=== PATIENT | male | born 1935 | race Caucasian/White ===

== ENCOUNTER → 2018-11-10 10:23 | Outpatient (CLI) | payer MEDICARE, OTHER | END | disposition home or self-care (01) | LOC: D.MRI 10:23 | PROVIDERS: ATTEND Orthopaedic Surgery | DX: M54.16 Radiculopathy, lumbar region (principal) ==

== ENCOUNTER 2019-11-19 10:14 | Inpatient (IN) | payer MEDICARE, OTHER ==
[~2019-11-19] VITALS: Ht 182.9 cm; Wt 79.6 kg
[2019-11-19] VITALS (8 sets, daily range): BP systolic 98–179; BP diastolic 48–95; BMI 21.3
--- NOTE | ~2019-11-19 | EC ---
PATIENT:STEVE RADFORD DATE OF SERVICE: 11/19/19 SEX: M MEDICAL RECORD: [id number] DATE OF : 31 LOCATION:[facility] AGE OF PATIENT: 84 ADMISSION DATE: 11/19/19 REFERRING PHYSICIAN: INTERPRETING PHYSICIAN: COLTON COLBERT MD ECHOCARDIOGRAM REPORT ECHO CHARGES 4 ECHO COMPLETE Date: 11/22/19 CLINICAL DIAGNOSIS: PROLONGED QT/FIRST DEGREE BLOCK ECHOCARDIOGRAPHIC MEASUREMENTS (adult normal given) AC root (d.<3.7cm) 4.5 cm LV Septum d (<1.2 cm> 1.3 cm Valve Excursion 1.2 cm LV Septum (systole) 1.6 cm Left Atria (s.<4.0cm> 4.2 cm LVPW d(<1.2cm) 1.2 cm RV (d.<2.3cm) 2.3 cm LVPW (sytole) 1.7 cm LV diastole(<5.6CM) 5.6 cm MV E-F(>70mm/sec) cm LV systole 4.3 cm LVOT Diameter 2.0 cm MV exc.(>10mm) cm Est.ejection fraction (50-75%) % DOPPLER: LVIT cm/sec A 39.0 cm/sec E 74.0 cm/sec LA cm/sec RVSP 36.0 mmHg LVOT 87.0 cm/sec AOP1/2T m/s Asc. Ao 126 cm/sec RVOT 66.0 cm/sec RA cm/sec PA 97.0 cm/sec AV Gradient Peak 6.3 mmHg AV Mean 4.0 mmHg AV Area 2.4 cm MV Gradient Peak 2.2 mmHg MV Mean 0.43 mmHg MV Area cm COMMENTS: Food Beverage Manager: Juarez VILLAGRANDSOE Reefer Engineer: 4 Dr. Colbert TAPE# PACS Pericardial Effusion N DATE OF SERVICE: PROCEDURE: Transthoracic echocardiogram. FINDINGS: Left ventricle has moderate concentric left ventricular hypertrophy, ejection fraction of 40% to 50%, mild global hypokinesis. Left atrium is mildly enlarged at 4.2 cm. ECHOCARDIOGRAM REPORT [id number] STEVE RADFORD Aortic valve overall is normal. Mitral valve has trace mitral regurgitation. Tricuspid valve has trace tricuspid regurgitation. Right ventricular systolic pressures between 30-35 mmHg. Pericardium is normal. Right ventricle is normal size, shape, and function. Right atrium is moderately enlarged. Pulmonic valve, trace pulmonic insufficiency. TRANSINT:[id number] Voice Confirmation ID: [id number] DOCUMENT ID: [id number] COLTON COLBERT MD CC: [id number] DICTATION DATE: 11/22/191841 SAP BUSINESS OBJECTS DEVELOPER: 11/23/19 0204 ADM IN [facility] [address] [place] [address]
[~2019-11-19 10:14] MED LIST: ADVIL200 MG PO; BAYER CHEWABLE81 MG PO; BUMEX2 MG PO; FERRIC CITRATE210 MG PO; FISH OIL 1,0001 CA1 PO; FOLIC ACID0.8 MG PO; LIDODERM 5 %1 PATCH TRANSDERM; MIDODRINE HCL5 MG PO; MIRALAX17 GM PO; NITROSTAT0.4 MG SL; PLAVIX75 MG PO; PROPAFENONE HC225 MG PO; PROSCAR5 MG PO; RENA-VITE TABL0.8 MG PO; RESTORIL7.5 MG PO; ULTRAM50 MG PO; VYTORIN PO; ZANAFLEX4 MG PO
[2019-11-19] MEDS ORDERED: FERRIC CITRATE210 MG PO (10:35)
--- NOTE | 2019-11-19 11:25 | NUR ---
CALLED PTS LISTED PHONE # ([phone]) IN ATTEMPT TO SPEAK WITH FAMILY RE: PTS NML MENTATION. NA/LM
[2019-11-19 11:39] LABS: BASOPHILS 0.4 % (0-2); EOSINOPHILS 2.8 % (0-7); HEMATOCRIT 39.9 % (42.0-54.0); HEMOGLOBIN 12.8 g/dL (13.5-17.5); IMMATURE GRANULOCYTES 0.6 % (0-5); MCH 32.2 pg (26.0-34.0); MCHC 32.1 g/dL (31.0-37.0); MCV 100.5 fL (80.0-100.0); MEAN PLATELET VOLUME 10.2 fL (7.4-10.4); MONOCYTES 8.9 % (2-11); NEUTROPHILS 60.3 % (40-80); PLATELET COUNT 175 10x3/uL (130-400); RBC 3.97 10x6/uL (4.20-6.10); RDW 13.7 % (11.5-14.5); WBC 5.4 10x3/uL (4.8-10.8)
[2019-11-19 11:40] LABS: BACTERIA FEW /hpf (NEGATIVE); BILIRUBIN NEGATIVE (NEGATIVE); EPITHELIAL CELLS 0-5 /hpf (0-5); GLUCOSE 50 mg/dL (NEGATIVE); KETONE NEGATIVE (NEGATIVE); NITRITE NEGATIVE (NEGATIVE); SPECIFIC GRAVITY 1.005 (1.005-1.020); UROBILINOGEN NORMAL (NORMAL); WHITE CELLS - URINE RARE /hpf (NEGATIVE)
[2019-11-19 11:41] LABS: CALC OSMOLALITY 287 mosm/kg (275-300); CALCIUM 9.5 mg/dL (8.5-10.1); CARBON DIOXIDE 31.6 mmol/L (21.0-32.0); CHLORIDE - SERUM 102 mmol/L (98-107); CREATININE - SERUM 6.6 mg/dL (0.6-1.3); GLUCOSE 100 mg/dL (74-106); SODIUM 141 mmol/L (136-145); UREA NITROGEN 33 mg/dL (7-18); eGFR NON AFRICAN AMERICAN 8 mL/min (90-120)
--- NOTE | 2019-11-19 11:51 | NUR ---
CALLED DR CHEW, INQUIRED ABOUT PTS HX/MS. DR CHEW REPORTS HE SAW PT IN OFFICE YESTERDAY AND PT WAS NOT CONFUSED REPORTS PT CONVERSED NORMALLY. TXD PT FOR BACK PAIN: NEW RXS NORCO 7.5 AND BACLOFEN. ROBERTH GONGORA NOTIFIED
[2019-11-19 11:57] LABS: ALBUMIN 3.2 g/dL (3.4-5.0); ALKALINE PHOSPHATASE 114 U/L (30-120); ALT (SGPT) 21 U/L (10-68); BILIRUBIN - TOTAL 0.46 mg/dL (0.2-1.3); CKMB 1.5 U/L (0.0-3.6); CREATINE KINASE 63 UL (21-232); MAGNESIUM - SERUM 2.5 mg/dL (1.8-2.4); PROTEIN - SERUM 7.1 g/dL (6.4-8.2); THYROID STIMULATING HORMONE 2.14 uIU/mL (0.36-3.74); TROPONIN-I 0.022 ng/mL (0.000-0.060)
[2019-11-19 12:32] LABS: APTT 28.8 SECONDS (22.8-39.4); PROTIME 13.1 SECONDS (11.6-15.0)
--- NOTE | 2019-11-19 15:17 | NUR ---
REPORT TO NEEL ODOM
--- NOTE | 2019-11-19 15:18 | NUR ---
ADMIT TO ROOM #2104, CONDITION STABLE
--- NOTE | 2019-11-19 15:44 | NUR ---
RECEIVED PT FROM ER VIA STRETCHER ACCOMPANIED BY . PT IS CONFUSED AND ONLY ORIENTED TO PERSON. FALL PRECAUTIONSN IN PLACE. CALL LIGHT W/I REACH. AT BEDSIDE. RR EVEN AND UNLABORED ON RA. VSS AND WNL. NO S/S OF DISTRESS NOTED. LEFT SIDED WEAKNESS NOTED. PT DENIES ANY NEEDS. QUICKSTART, HISTORY, AND MED REQ COMPLETE. WILL CTM.
--- NOTE | 2019-11-19 19:33 | NUR ---
TRANSFER TO ICU SEE RAPID RESPONSE SHEETS.
[2019-11-20] VITALS (21 sets, daily range): BP systolic 74–185; BP diastolic 47–800; BMI 21.3
[2019-11-20 06:08] LABS: BASOPHILS 0.1 % (0-2); EOSINOPHILS 0.1 % (0-7); HEMATOCRIT 41.8 % (42.0-54.0); HEMOGLOBIN 13.3 g/dL (13.5-17.5); IMMATURE GRANULOCYTES 0.4 % (0-5); LYMPHOCYTES 12.8 % (15-50); MCH 31.8 pg (26.0-34.0); MCHC 31.8 g/dL (31.0-37.0); MEAN PLATELET VOLUME 10.2 fL (7.4-10.4); MONOCYTES 8.5 % (2-11); NEUTROPHILS 78.1 % (40-80); RBC 4.18 10x6/uL (4.20-6.10); RDW 13.9 % (11.5-14.5)
[2019-11-20 06:21] LABS: ANION GAP 22.2 mmol/L (8-16); CALCIUM 10.2 mg/dL (8.5-10.1); MAGNESIUM - SERUM 2.5 mg/dL (1.8-2.4); PHOSPHOROUS 4.4 mg/dL (2.5-4.9)
[2019-11-20 06:23] LABS: CARBON DIOXIDE 22.8 mmol/L (21.0-32.0)
[2019-11-20 06:25] LABS: PLATELET COUNT 265 10x3/uL (130-400); WBC 13.5 10x3/uL (4.8-10.8)
--- NOTE | 2019-11-20 08:15 | NUR ---
IV STARTED IN R HAND WITH 20G ON 1ST ATTEMPT. SITE DRESSED WITH TEGADERM.
--- NOTE | 2019-11-20 23:43 | NUR ---
1899-ASSESSMENT COMPLETED. PATIENT SEDATED. WAKES TO VOICE. CONFUSION NOTED. SOON PT OPENS EYES, HE STARTED TRYING TO GET UP. LEFT ARM RESERVE, DRESSING INTACT FROM HD TODAY. RIGHT HAND PIV. BREATHING ON ROOM AIR. 2002-PRN ATIVAN GIVEN. PATIENT JERKING IN BED. BED ALARM ON. 2023- CALLED, PASSCODE GIVEN, UPDATE GIVEN. REQUEST PT BE CHECKED FOR TICK FEVER. 2329-PATIENT STARTED THRASHING IN BED, YELLING "MAMA." ATTEMPTED TO REORIENT BUT UNSUCCESSFUL.
[2019-11-21] VITALS (24 sets, daily range): BP systolic 88–149; BP diastolic 48–97
[2019-11-21 03:39] LABS: BASOPHILS 0.2 % (0-2); EOSINOPHILS 0.2 % (0-7); HEMATOCRIT 40.9 % (42.0-54.0); IMMATURE GRANULOCYTES 0.3 % (0-5); LYMPHOCYTES 19.3 % (15-50); MCH 31.7 pg (26.0-34.0); MCHC 31.8 g/dL (31.0-37.0); MCV 99.8 fL (80.0-100.0); MEAN PLATELET VOLUME 10.4 fL (7.4-10.4); MONOCYTES 14.2 % (2-11); NEUTROPHILS 65.8 % (40-80); RDW 14.1 % (11.5-14.5); WBC 12.2 10x3/uL (4.8-10.8)
[2019-11-21 03:45] LABS: PLATELET COUNT 203 10x3/uL (130-400)
[2019-11-21 03:51] LABS: ANION GAP 17.2 mmol/L (8-16); CALCIUM 9.4 mg/dL (8.5-10.1); CARBON DIOXIDE 23.8 mmol/L (21.0-32.0)
--- NOTE | 2019-11-21 05:20 | NUR ---
0005-YELLING "MAMA." CONT WITH THRASHING IN BED. PAGED MARGARITA MEDINA. 0139-CONT THRASHING IN BED. GIVEN SCHEDULED HALDOL. LAST DOSE 0230- MARGARITA MEDINA IN UNIT. SPOKE WITH HER, NO NEW ORDERS. 0328- HEARTRATE ELEVATED. PT THRASHING IN BED. YELLING. PAGED RENAL POCKETBOOK MAKER, DR. CAST. 0340- GIVEN PRN ATIVAN. HEARTRATE BACK TO 90'S. NO RETURN CALL FROM DR. CAST. 0500- PATIENT HAD APPROX 1 HOUR OF REST, WITH NO YELLING.
--- NOTE | 2019-11-21 06:40 | NUR ---
0600-COMPLETE BED CHANGE, LINEN SOILED. 0620-SPOKE WITH DR. AUSTIN, NEW ORDER FOR ATIVAN 1MG X 1 NOW. PATIENT CONT TO YELL AND THRASH AGAINST THE BED.
--- NOTE | 2019-11-21 07:00 | NUR ---
BEDSIDE REPORT RECEIVED. SHIFT ASSESSMENT COMPLETED PER FLOWSHEET, SEE FLOWSHEET FOR INFORMATION. PT RESTING IN BED WITH EYES CLOSED. VSS. NO ACUTE NEEDS OR DISTRESS NOTED AT THIS TIME. WILL CONT TO MONITOR.
--- NOTE | 2019-11-21 07:05 | NUR ---
INTERPETED EKG SINUS TACH WITH 1ST DEGREE HEART BLOCK. WILL CONT TO MONITOR.
--- NOTE | 2019-11-21 09:00 | NUR ---
PT AGITATED IN BED SAYING "MOMMA, MOMMA COME HOLD ME". VSS WILL CONT TO MONITOR.
--- NOTE | 2019-11-21 11:00 | NUR ---
REASSESSMENT COMPLETED PER FLOWSHEET, SEE FLOWSHEET FOR INFORMATION. DIALYSIS AT BEDSIDE ALONG WITH PT DAUGHTER. UPDATE GIVEN. VSS. NO ACUTE NEEDS OR DISTRESS NOTED AT THIS TIME. PT TOLERATING HALDOL WELL. WILL CONT TO MONITOR.
--- NOTE | 2019-11-21 12:17 | NUR ---
LEFT FOREARM FISTULA INFILTRATED. MARTIN LEPE CALLED. NEW ORDER RECEIVED, NO HD TOMORROW TO ALLOW ARM TO REST AND HEAL. WILL CONT TO MONITOR.
--- NOTE | 2019-11-21 13:00 | NUR ---
PT RIPPED IV OUT OF RIGHT HAND. NEW PATENT 20G IV IN RIGHT UPPER ARM, NS INFUSING AT 30ML/HR. NO ACUTE NEEDS OR DISTRESS NOTED AT THIS TIME. VSS. WILL CONT TO MONITOR.
--- NOTE | 2019-11-21 15:00 | NUR ---
REASSESSMENT COMPLETED PER FLOWSHEET, SEE FLOWSHEET FOR INFORMATION. AT BEDSIDE, NEW ORDERS RECEIVED. CHG BEDBATH GIVEN, COMPLETE LINEN CHANGE. PAGED FOR CARDIOLOGY CONSULT. WILL CONT TO MONITOR.
--- NOTE | 2019-11-21 16:39 | NUR ---
SUNNY LEPE PAGED. WILL CONT TO MONITOR.
--- NOTE | 2019-11-21 17:00 | NUR ---
HALDOL GIVEN PER ORDERS. PT RESTING IN BED WITH EYES CLOSED. WILL CONT TO MONITOR.
--- NOTE | 2019-11-21 18:00 | NUR ---
DR.NORRED FERREIRA. WILL CONT TO MONITOR. EKG TAKEN.
--- NOTE | 2019-11-21 18:16 | NUR ---
PAGED AND GAVE THEM 'S NUMBER TO CALL BACK SINCE REQUESTED TO SPEAK WITH STATING "CONSULTS ARE PHYSICIAN TO PHYSICIAN, YOU'RE NOT A PHYSICIAN ARE YOU?" WILL CONT TO MONITOR.
--- NOTE | 2019-11-21 19:15 | NUR ---
INTERPRETED EKG SINUS TACH WITH 1ST DEGREE HEART BLOCK. WILL CONT TO MONITOR.
--- NOTE | 2019-11-21 19:30 | NUR ---
CM NOT SHOWING RHYTHM INTO CHECK PT HAS TORN WIRES FROM LEADS REPLACED AND REPOSITIONED PT. PT KNOWS HES IN HOSPITAL BUT CONFUSED ABOUT SITUATION AND TIME. REORIENTED TO UNIT. LEADS LINES AND TUBES CAMOFLAUGED. RESTRAINTS ON, SIDE RAILS UP TIMES 3 AND BED ALARM ON PT ATTEMPTS TO GET OOB.
--- NOTE | 2019-11-21 23:00 | NUR ---
REASSESSMENT COMPLETE NO CHANGES CPOC
[2019-11-22] VITALS (24 sets, daily range): BP systolic 79–147; BP diastolic 58–92; Ht 182.9 cm; Wt 79.6 kg
--- NOTE | 2019-11-22 02:28 | NUR ---
PT AGITATED CURSING AND MAD WANTING TO LEAVE HOSPITAL CM READING AFIB RVR 150'S MEDICATED WITH ATIVAN PER PRN ORDER
--- NOTE | 2019-11-22 02:59 | NUR ---
PAGED FILEMON PT IN AFIB RVR 150'S NO ANSWER
--- NOTE | 2019-11-22 03:14 | NUR ---
HANNA COLBERT SECOND TIME FOR AFIB RVR NO REPLY. PTS RATE HAS DECREASED DOWN TO 120'S WITH ATIVAN PRN DOSE.
--- NOTE | 2019-11-22 04:00 | NUR ---
PT RESTING QUIETLY WITH EYES CLOSED HEART RATE DOWN TO 120'S. CPOC
[2019-11-22 06:29] LABS: BASOPHILS 0.2 % (0-2); EOSINOPHILS 0.2 % (0-7); HEMATOCRIT 39.1 % (42.0-54.0); HEMOGLOBIN 12.6 g/dL (13.5-17.5); IMMATURE GRANULOCYTES 0.7 % (0-5); MCH 31.9 pg (26.0-34.0); MCHC 32.2 g/dL (31.0-37.0); MEAN PLATELET VOLUME 10.6 fL (7.4-10.4); MONOCYTES 14.3 % (2-11); NEUTROPHILS 71.6 % (40-80); PLATELET COUNT 197 10x3/uL (130-400); RBC 3.95 10x6/uL (4.20-6.10); RDW 14.4 % (11.5-14.5); WBC 9.8 10x3/uL (4.8-10.8)
[2019-11-22 06:48] LABS: ANION GAP 23.5 mmol/L (8-16); CALCIUM 9.7 mg/dL (8.5-10.1); CARBON DIOXIDE 19.3 mmol/L (21.0-32.0); CREATININE - SERUM 6.6 mg/dL (0.6-1.3); POTASSIUM - SERUM 4.8 mmol/L (3.5-5.1)
--- NOTE | 2019-11-22 07:00 | NUR ---
BEDSIDE REPORT RECEIVED. SHIFT ASSESSMENT COMPLETED PER FLOWSHEET, SEE FLOWSHEET FOR INFORMATION. PT IN BED CURSING AND YELLING AT STAFF, WHILE FLAILING LEGS IN THE AIR. HEART RATE 122, ALL OTHER VS WNL. MEDICATION GIVEN PER EMAR. NO ACUTE NEEDS NOTED AT THIS TIME. WILL CONT TO MONITOR.
--- NOTE | 2019-11-22 09:00 | NUR ---
PT HEART RATE VERY LABILE, HEART RATE WILL DROP DOWN TO 53 AND RISE BACK UP TO [address]NORRED FERREIRA.
--- NOTE | 2019-11-22 09:23 | NUR ---
PT IN MULTIFOCAL ATRIAL TACHYCARDIA. AWATING CALL FROM . WILL CONT TO MONITOR.
--- NOTE | 2019-11-22 09:32 | NUR ---
ON THE PHONE WITH NATALIYA, SHE STATES SHE WANTS HIM A FULL CODE AND THAT WAS HEARD BY CONNOR ODOM. WILL CONT TO MONITOR.
--- NOTE | 2019-11-22 09:44 | NUR ---
PT MEGAN DOWN TO 63, GOT A EKG STRIP AT HR OF 70. WILL CONT TO MONITOR.
--- NOTE | 2019-11-22 09:46 | NUR ---
PT MEGAN DOWN TO 59. EKG STRIP TAKEN OF 65, WILL CONT TO MONITOR.
--- NOTE | 2019-11-22 09:46 | NUR ---
DR.ERWIN FERREIRA. WILL CONT TO MONITOR.
--- NOTE | 2019-11-22 10:11 | NUR ---
AT BEDSIDE. NO NEW ORDERS RECEIVED. WILL CONT TO MONITOR.
--- NOTE | 2019-11-22 11:00 | NUR ---
CHG BEDBATH GIVEN WITH COMPLETE LINEN CHANGE. RESTRAINTS TAKEN OFF OF PT, PT VERBALIZED KNOWLEDGE OF HIS IV'S AND ALL ATTACHMENTS FOR VS, HE STATES "I WILL NOT PULL THEM, I KNOW YOU NEED IT TO SEE HOW MY HEART IS DOING." REASSESSMENT COMPLETED PER FLOWSHEET, SEE FLOWSHEET FOR INFORMATION. VSS. NO ACUTE NEEDS OR DISTRESS NOTED AT THIS TIME. WILL CONT TO MONITOR.
--- NOTE | 2019-11-22 13:00 | NUR ---
HEART RATE 140-150 SUBSTAINING FOR 10 MINUTES. PAGED . AWAITING A RESPONSE FROM . WILL CONT TO MONITOR.
--- NOTE | 2019-11-22 13:24 | NUR ---
AT BEDSIDE, UPDATED HIM ON HEART RATE AND THAT IT HAS SUSTAINED OVER 15 MINUTES. "JUST KEEP CALLING NORRED" NO NEW ORDERS.
--- NOTE | 2019-11-22 13:37 | NUR ---
CALLED , NEW ORDER RECEIVED. 500ML NS BOLUS AT 200ML/HR STARTED. WILL CONT TO MONITOR.
--- NOTE | 2019-11-22 13:49 | NUR ---
PT TOLERATING NS BLOUS WELL, HEART RATE IS 105 AND BLOOD PRESSURE IS 98/61. WILL CONT TO MONITOR.
--- NOTE | 2019-11-22 15:00 | NUR ---
REASSESSMENT COMPLETED PER FLOWSHEET, SEE FLOWSHEET FOR INFORMATION. NO ACUTE NEEDS OR DISTRESS NOTED AT THIS TIME. VSS. WILL CONT TO MONITOR.
--- NOTE | 2019-11-22 17:00 | NUR ---
PT RESTING IN BED WITH EYES CLOSED, NO ACUTE NEEDS OR DISTRESS NOTED AT THIS TIME. VSS, WILL CONT TO MONITOR.
--- NOTE | 2019-11-22 19:10 | NUR ---
NS @ 75 FOR 6 HOURS STARTED.
--- NOTE | 2019-11-22 19:13 | NUR ---
SPOKE WITH , NEW ORDERS RECEIVED. WILL CONT TO MONITOR.
--- NOTE | 2019-11-22 19:57 | NUR ---
PT RECEIVED IN BED WATCHING TV. CONFUSION NOTED. NO COMPLAINTS OF PAIN NOTED. CALL LIGHT IN REACH. WILL CONTINUE TO OBSERVE.
--- NOTE | 2019-11-22 20:43 | NUR ---
LOPRESSOOR 2.5MG IV GIVEN OVER 30 MINUTES PER ORDER.
--- NOTE | 2019-11-22 21:40 | NUR ---
CALLED PER PT REQUEST TO REQUEST LIFESAVERS OR OTHER CANDY THAT THEY KNOW HE LIKES. STATES SHE WILL BRING THEM TOMORROW
[2019-11-23] VITALS (25 sets, daily range): BP systolic 93–150; BP diastolic 28–89
--- NOTE | 2019-11-23 01:36 | NUR ---
PT WITH INCREASING AGGITATION NOTED, PRN HADOL GIVEN PER MAR. WILL CONTINUE TO OBSERVE.
[2019-11-23 03:49] LABS: BASOPHILS 0.3 % (0-2); EOSINOPHILS 2.2 % (0-7); HEMATOCRIT 35.6 % (42.0-54.0); HEMOGLOBIN 11.5 g/dL (13.5-17.5); IMMATURE GRANULOCYTES 0.8 % (0-5); LYMPHOCYTES 21.3 % (15-50); MCH 31.9 pg (26.0-34.0); MCHC 32.3 g/dL (31.0-37.0); MCV 98.9 fL (80.0-100.0); MEAN PLATELET VOLUME 10.6 fL (7.4-10.4); MONOCYTES 12.9 % (2-11); NEUTROPHILS 62.5 % (40-80); PLATELET COUNT 174 10x3/uL (130-400); RDW 14.3 % (11.5-14.5)
[2019-11-23 04:01] LABS: WBC 7.1 10x3/uL (4.8-10.8)
[2019-11-23 04:07] LABS: CALCIUM 8.7 mg/dL (8.5-10.1); CREATININE - SERUM 7.2 mg/dL (0.6-1.3)
[2019-11-23 04:11] LABS: ANION GAP 14.8 mmol/L (8-16); CARBON DIOXIDE 24.2 mmol/L (21.0-32.0)
--- NOTE | 2019-11-23 05:58 | NUR ---
CHG BATH GIVEN WITH COMPLETE LINEN CHANGE.
--- NOTE | 2019-11-23 07:00 | NUR ---
PT REPORT RECEIVED FROM BRIQUETTE OPERATOR NURSE. NO ACUTE SIGNS OF DISTRESS NOTED. PT RESTING IN BED. SHIFT ASSESSMENT COMPLETED. WILL CONTINUE TO MONITOR
--- NOTE | 2019-11-23 09:05 | NUR ---
PT RESTING IN BED. FINISHED MEAL TRAY. TOOK AM MEDS WELL WITH SIPS OF WATER. NO COMPLAINTS NOTED AT THIS TIME. WILL CONTINUE TO MONITOR
--- NOTE | 2019-11-23 09:22 | NUR ---
PT WANTED BAR OF SOAP UNDER LEGS. PLACED ONE BAR UNDER HIS RT KNEE AND ONE UNDER THE RT CALF. PT STATED THAT HELPED WITH HIS LEG PAIN. WILL CONTINUE TO MONITOR
--- NOTE | 2019-11-23 10:48 | NUR ---
PT GIVEN CHG BATH AND CLEANED UP. LINENS CHANGED. PT TOLERATED WELL. NEW BRIEF AND CHUX PADS UNDER PT DUE TO INCONTINENCE. WILL CONTINUE TO MONITOR
--- NOTE | 2019-11-23 10:53 | NUR ---
Nutrition follow-up: Diet: regular PO intake 25-100% ESRD with dialysis Labs reviewed Wt: 161# RDN following.
--- NOTE | 2019-11-23 11:07 | NUR ---
PT RESTING IN BED. NO COMPLAINTS NOTED AT THIS TIME. REASSESSMENT COMPLETED. WILL CONTINUE TO MONITOR
--- NOTE | 2019-11-23 11:27 | NUR ---
DR TRAVIS IN ROOM. UPDATE GIVEN. NO NEW ORDERS AT THIS TIME. WILL CONTINUE TO MONITOR
--- NOTE | 2019-11-23 14:06 | NUR ---
PT STATED HE WANTED SOME SALINE FOR HIS NOSTRILS. STATES THEY FEEL DRY. WHEN DR ANGUIANO PAGES BACK WILL ASK FOR ORDER.
--- NOTE | 2019-11-23 15:15 | NUR ---
DR CAST AT BEDSIDE. UPDATE GIVEN. NO NEW ORDERS AT THIS TIME. WILL CONTINUE TO MONITOR. PT HAS HR IN 140'S. PAGED CARDIOLOGY
--- NOTE | 2019-11-23 15:20 | NUR ---
ALEJANDRA SOLOMON PAGED BACK FOR PT. UPDATE GIVEN. NEW ORDER FOR IV LOPRESSOR 2.5MG OVER 30 MINUTES. IF HR DOES NOT SLOW DO 12 LEAD AND PAGE CARDIOLOGY AGAIN.
[2019-11-23 16:13] LABS: UDS - AMPHET NEGATIVE QUAL (NEGATIVE); UDS - BARB NEGATIVE QUAL (NEGATIVE); UDS - BENZO NEGATIVE QUAL (NEGATIVE); UDS - COCAINE NEGATIVE QUAL (NEGATIVE); UDS - OPIATE NEGATIVE QUAL (NEGATIVE); UDS - PCP NEGATIVE QUAL (NEGATIVE); UDS - THC NEGATIVE QUAL (NEGATIVE)
--- NOTE | 2019-11-23 16:58 | NUR ---
SPOKE WITH ALEJANDRA CARDIOLOGY TOWER HELPER. UPDATE GIVEN. WANTS TO SEE EKG
--- NOTE | 2019-11-23 17:08 | NUR ---
ORDER RECEIVED TO GIVE 500MCG DIGOXIN STAT, THEN GIVE 250MCG DIGOXIN ONE TIME AT 2100
--- NOTE | 2019-11-23 17:34 | MORECARE ---
CASE MANAGEMENT DISCHARGE SUMMARY PATIENT: STEVE RADFORD UNIT: [id number] ADM DATE: 11/19/19 AGE: 84 : 33 SEX: M ROOM/BED: D.2311 AUTHOR: ANNA LOPEZ PHYSICIAN: REFERRING PHYSICIAN: TERRENCE ESPINOZA MD DATE OF SERVICE: 11/23/19 Discharge Plan Patient Name: STEVE RADFORD [facility] [facility] 1935 Planned Disposition: Anticipated Discharge Date: Discharge Date: Expected LOS: Initial Reviewer: [email or web address] Initial Review Date: 11/19/2019 Generated: 11/23/19 6:33 pm DCPIA - Discharge Planning Initial Assessment Updated by [email or web address]: Soila Box on 11/23/19 5:30 pm * Is the patient Alert and Oriented? No * How many steps to enter\exit or inside your home? Patient Name: STEVE RADFORD Page [phone] at 1734 All edits/amendments must be made on the electronic document DICTATION DATE: 11/23/191732 SUPERVISOR BEAM DEPARTMENT: SALVATORE 11/23/191732 RPT#: [id number] DC DATE: STATUS: ADM IN [facility] [address] [place] [address] END OF REPORT
--- NOTE | 2019-11-23 17:41 | MORECARE ---
CASE MANAGEMENT DISCHARGE SUMMARY PATIENT: STEVE RADFORD UNIT: [id number] ADM DATE: 11/19/19 AGE: 84 : 33 SEX: M ROOM/BED: D.2311 AUTHOR: ANNA LOPEZ PHYSICIAN: REFERRING PHYSICIAN: TERRENCE ESPINOZA MD DATE OF SERVICE: 11/23/19 Discharge Plan Patient Name: STEVE RADFORD Facility: [facility]:[place] : 1935 Planned Disposition: Anticipated Discharge Date: Discharge Date: Expected LOS: Initial Reviewer: [email or web address] Initial Review Date: 11/19/2019 Generated: 11/23/19 6:40 pm Comments DCP- Discharge Planning Updated by [email or web address]: Soila Box on 11/23/19 4:[address] CM attempted to call patient's Arianna Radford [phone] to speak to her regarding discharge planning / needs. CM has tried to call two different times and has gotten a busy signal each time. CM will continue to follow for discharge planning / needs. DCPIA - Discharge Planning Initial Assessment Updated by [email or web address]: Soila Box on 11/23/19 5:30 pm * Is the patient Alert and Oriented? No * How many steps to enter\exit or inside your home? Last DP export: 11/23/19 4:34 pm Patient Name: STEVE RADFORD Page [id number] at 1741 All edits/amendments must be made on the electronic document DICTATION DATE: 11/23/191739 WOOD FENCE INSTALLER: SALVATORE 11/23/191739 RPT#: [id number] DC DATE: STATUS: ADM IN [facility] [address] [place] [address] END OF REPORT
--- NOTE | 2019-11-23 19:00 | NUR ---
PT TRANSFERRED VIA BED TO CVICU, STOOD TO TRANSFER WITH ASSIST, A/OX4, RIGHT PIV INTACT WITH NS @ 30 CC/HR, HR 135-140,WILL CONT TO MONITOR
--- NOTE | 2019-11-23 20:00 | NUR ---
HD NURSE AT BEDSIDE, BEGINNING HD, PT AWAKE WITH NO C/O
--- NOTE | 2019-11-23 21:00 | NUR ---
TAKES PO MEDS WITHOUT DIFFICULTY, HD IN PROGRESS, HR REMAINS ELEVATED, NO DISTRESS
--- NOTE | 2019-11-23 23:00 | NUR ---
HD COMPLETED, HR 115, VITALS STABLE, WILL CONT TO MONITOR
[2019-11-24] VITALS (13 sets, daily range): BP systolic 103–155; BP diastolic 34–77
--- NOTE | 2019-11-24 01:00 | NUR ---
PT RESTING QUIETLT WITH EYES CLOSED, VITALS STABLE
--- NOTE | 2019-11-24 03:15 | NUR ---
PT AWAKE, VOICES NEEDS, NO DISTRESS NOTED
--- NOTE | 2019-11-24 05:00 | NUR ---
PT AWAKE, BATHED PER STAFF WITH CHG SOAP, LINENS CHANGED, NO C/O
[2019-11-24 06:06] LABS: ANION GAP 14.6 mmol/L (8-16); CALCIUM 8.3 mg/dL (8.5-10.1); CARBON DIOXIDE 22.4 mmol/L (21.0-32.0)
[2019-11-24 06:19] LABS: BASOPHILS 0.6 % (0-2); HEMATOCRIT 34.5 % (42.0-54.0); HEMOGLOBIN 11.3 g/dL (13.5-17.5); IMMATURE GRANULOCYTES 0.6 % (0-5); LYMPHOCYTES 18.8 % (15-50); MCH 32.2 pg (26.0-34.0); MCHC 32.8 g/dL (31.0-37.0); MCV 98.3 fL (80.0-100.0); MEAN PLATELET VOLUME 10.8 fL (7.4-10.4); MONOCYTES 13.9 % (2-11); NEUTROPHILS 63.1 % (40-80); PLATELET COUNT 159 10x3/uL (130-400); RBC 3.51 10x6/uL (4.20-6.10); RDW 14.3 % (11.5-14.5)
--- NOTE | 2019-11-24 09:44 | NUR ---
0700 PT RECIEVED ALERT AND ORIENTED VSS DENIES PAIN R AC PIV WITH NS 30ML/HR L ARM FISTULA WITH THRILL AND BRUIT PRESENT, DENIES ALL NEEDS 0800 ATE 75% BREAKFAST 0900 OK WITH PRIMARY AND CARDIOLOGY TO TRANSFER TO FLOOR ON TELEMETRY
--- NOTE | 2019-11-24 11:51 | NUR ---
Rehab Note- Acute Inpatient Rehab prescreen order received. THe patient is a good candidate for inpatient acute rehab if in agreeance for [facility] Acute Inpatient REhab. Will follow at this time. Thank you for this referral! Molly Ruelas RN Clinical Liaison, [facility] Rehab
--- NOTE | 2019-11-24 12:19 | NUR ---
PT TP TRANSFER TO 2122 REPORT CALLED TO NEEL, PTS FAMILY AWARE
--- NOTE | 2019-11-24 12:19 | MORECARE ---
CASE MANAGEMENT DISCHARGE SUMMARY PATIENT: STEVE RADFORD UNIT: [id number] ADM DATE: 11/19/19 AGE: 84 : 33 SEX: M ROOM/BED: D.[facility] AUTHOR: ANNA LOPEZ PHYSICIAN: REFERRING PHYSICIAN: TERRENCE ESPINOZA MD DATE OF SERVICE: 11/24/19 Discharge Plan Patient Name: STEVE RADFORD Facility: [facility]:[place] : 1935 Planned Disposition: Home Anticipated Discharge Date: Discharge Date: Expected LOS: Initial Reviewer: [email or web address] Initial Review Date: 11/19/2019 Generated: 11/24/19 1:18 pm DCP- Discharge Planning Updated by [email or web address]: Soila Box on 11/23/19 4:[address] CM attempted to call patient's Arianna Radford [phone] to speak to her regarding discharge planning / needs. CM has tried to call two different times and has gotten a busy signal each time. CM will continue to follow for discharge planning / needs. DCPIA - Discharge Planning Initial Assessment Updated by [id number]: Soila Box on 11/23/19 5:30 pm * Is the patient Alert and Oriented? No * How many steps to enter\exit or inside your home? Last DP export: 11/23/19 4:41 pm Patient Name: STEVE RADFORD Page 42328 at 1219 All edits/amendments must be made on the electronic document DICTATION DATE: 11/24/19 1218 PHARMACY MESSENGER: SALVATORE 11/24/19 1218 RPT#: [id number] DC DATE: STATUS: ADM IN [facility] [address] [place] [address] END OF REPORT
--- NOTE | 2019-11-24 12:29 | MORECARE ---
CASE MANAGEMENT DISCHARGE SUMMARY PATIENT: STEVE RADFORD UNIT: [id number] ADM DATE: 11/19/19 AGE: 84 : 33 SEX: M ROOM/BED: D.2123 AUTHOR: ANNA LOPEZ PHYSICIAN: REFERRING PHYSICIAN: TERRENCE ESPINOZA MD DATE OF SERVICE: 11/24/19 Discharge Plan Patient Name: STEVE RADFORD Facility: [facility]:[place] : 1935 Planned Disposition: Home Anticipated Discharge Date: Discharge Date: Expected LOS: Initial Reviewer: [email or web address] Initial Review Date: 11/19/2019 Generated: 11/24/19 1:28 pm DCP- Discharge Planning Updated by [email or web address]: Soila Box on 11/23/19 4:[address] CM attempted to call patient's Arianna Radford [phone] to speak to her regarding discharge planning / needs. CM has tried to call two different times and has gotten a busy signal each time. CM will continue to follow for discharge planning / needs. DCPIA - Discharge Planning Initial Assessment Updated by [email or web address]: Soila Box on 11/24/19 12:26 pm * Is the patient Alert and Oriented? Yes * How many steps to enter\exit or inside your home? 4 RAMP * PCP STECKER * Pharmacy [facility] * Preadmission Environment Home with Family * ADLs Independent * Other Equipment REQUESTING A ROLLATOR * List name and contact numbers for known caregivers / representatives who currently or will assist patient after discharge: ARIANNA RADFORD - [phone] * Verbal permission to speak to the caregivers and representatives has been obtained from the patient. Yes * Community resources currently utilized None * Additional services required to return to the preadmission environment? No * Can the patient safely return to the preadmission environment? Yes * Has this patient been hospitalized within the prior 30 days at any hospital? No Last DP export: 11/24/19 11:19 am Patient Name: STEVE RADFORD Page 42680 at 1229 All edits/amendments must be made on the electronic document DICTATION DATE: 11/24/191228 LITHOGRAPHIC PHOTOGRAPHER: DM 11/24/19 1229 RPT#: [id number] DC DATE: STATUS: ADM IN [facility] [address] [place] [address] END OF REPORT
--- NOTE | 2019-11-24 12:40 | NUR ---
RECEIVED PT FROM CVICU. PT IS AAO AND UP WITH ASSIST. CALL LIGHT W/I REACH. FAMILY AT BEDSIDE. PT ORIENTED TO ROOM. NO S/S OF DISTRESS NOTED. NS INFUSING @30ML/HR VIA R.AC PIV. RR EVEN AND UNLABORED ON RA. PT DENIES ANY NEEDS AT THIS TIME. WILL CTM.
--- NOTE | 2019-11-24 12:46 | MORECARE ---
CASE MANAGEMENT DISCHARGE SUMMARY PATIENT: STEVE RADFORD UNIT: [id number] ADM DATE: 11/19/19 AGE: 84 : 33 SEX: M ROOM/BED: D.6294 AUTHOR: JESSICADOC PHYSICIAN: REFERRING PHYSICIAN: TERRENCE ESPINOZA MD DATE OF SERVICE: 11/24/19 Discharge Plan Patient Name: STEVE RADFORD Facility: [facility]:[place] : 1935 Planned Disposition: Home Anticipated Discharge Date: Discharge Date: Expected LOS: Initial Reviewer: [email or web address] Initial Review Date: 11/19/2019 Generated: 11/24/19 1:45 pm DCP- Discharge Planning Updated by [email or web address]: Soila Box on 11/24/19 11:[address] Patient Name: STEVE RADFORD Admission Status: ER Accout number: [id number] Admission Date: 11-19-2019 : 1935 Admission Diagnosis:METABOLIC ENCEPHALOPATHY Attending: TERRENEC AVILES Current LOS: 5 Anticipated DC Date: Planned Disposition: Home Primary Insurance: MEDICARE A & B Discharge Planning Comments: CM met with patient to complete initial dc planning assessment. CM educated patient on the CM role and verbal consent given by patient to complete assessment. Patient lives at home with family. Patient is independent. At discharge patient plans to return home and feels this is a safe discharge. CM discussed availability of home health, rehab services, and medical equipment. Patient is requesting a rollator, he states that he had an order for one and dropped it off at the [facility] on [address] where his gets her 02. CM will check on this for him. Patient will have family to transport home. Patient has dialysis next door at [facility] - MWF @ 0600. Patient denied known discharge needs at this time. CM will continue to follow and will assist as needed with dc plans/needs. Course Developer: Soila Box DCP- Discharge Planning Updated by [email or web address]: Soila Box on 11/23/19 4:[address] CM attempted to call patient's Arianna Radford [phone] to speak to her regarding discharge planning / needs. CM has tried to call two different times and has gotten a busy signal each time. CM will continue to follow for discharge planning / needs. DCPIA - Discharge Planning Initial Assessment Updated by [email or web address]: Soila Box on 11/24/19 12:26 pm * Is the patient Alert and Oriented? Yes * How many steps to enter\exit or inside your home? 4 RAMP * PCP STECKER * Pharmacy [facility] * Preadmission Environment Home with Family * ADLs Independent * Other Equipment REQUESTING A ROLLATOR * List name and contact numbers for known caregivers / representatives who currently or will assist patient after discharge: ARIANNA RADFORD - [phone] * Verbal permission to speak to the caregivers and representatives has been obtained from the patient. Yes * Community resources currently utilized None * Additional services required to return to the preadmission environment? No * Can the patient safely return to the preadmission environment? Yes * Has this patient been hospitalized within the prior 30 days at any hospital? No Last DP export: 11/24/19 11:29 am Patient Name: STEVE RADFORD Page [phone] at 1246 All edits/amendments must be made on the electronic document DICTATION DATE: 11/24/19 1245 REPRODUCTION MACHINE LOADER: SALVATORE 11/24/19 1245 RPT#: [id number] DC DATE: STATUS: ADM IN [facility] [address] [place] [address] END OF REPORT
--- NOTE | 2019-11-24 16:43 | MORECARE ---
CASE MANAGEMENT DISCHARGE SUMMARY PATIENT: STEVE RADFORD UNIT: [id number] ADM DATE: 11/19/19 AGE: 84 : 33 SEX: M ROOM/BED: D.9193 AUTHOR: JESSICADOC PHYSICIAN: REFERRING PHYSICIAN: TERRENCE ESPINOZA MD DATE OF SERVICE: 11/24/19 Discharge Plan Patient Name: STEVE RADFORD Facility: [facility]:[place] : 1935 Planned Disposition: Home Anticipated Discharge Date: Discharge Date: Expected LOS: Initial Reviewer: [email or web address] Initial Review Date: 11/19/2019 Generated: 11/24/19 5:43 pm Comments DCP- Discharge Planning Updated by [email or web address]: Soila Box on 11/24/19 3:[address] CM spoke with [place] Patient [phone] and this is the DME company he dropped off the order to for rollator. They stated that his rollator is ready just call and let them know when he is discharged. CM will continue to follow and assist as needed with discharge planning / needs. DCP- Discharge Planning Updated by [email or web address]: Soila Box on 11/24/19 11:[address] Patient Name: STEVE RADFORD Admission Status: ER Accout number: [id number] Admission Date: 11-19-2019 : 1935 Admission Diagnosis:METABOLIC ENCEPHALOPATHY Attending: TERRENCE AVILES Current LOS: 5 Anticipated DC Date: Planned Disposition: Home Primary Insurance: MEDICARE A & B Discharge Planning Comments: CM met with patient to complete initial dc planning assessment. CM educated patient on the CM role and verbal consent given by patient to complete assessment. Patient lives at home with family. Patient is independent. At discharge patient plans to return home and feels this is a safe discharge. CM discussed availability of home health, rehab services, and medical equipment. Patient is requesting a rollator, he states that he had an order for one and dropped it off at the DME on [facility] where his gets her 02. CM will check on this for him. Patient will have family to transport home. Patient has dialysis next door at [facility] - MWF @ 0600. Patient denied known discharge needs at this time. CM will continue to follow and will assist as needed with dc plans/needs. Ehs Engineer: Soila Box DCP- Discharge Planning Updated by [email or web address]: Soila Box on 11/23/19 4:[address] CM attempted to call patient's Arianna Radford [phone] to speak to her regarding discharge planning / needs. CM has tried to call two different times and has gotten a busy signal each time. CM will continue to follow for discharge planning / needs. DCPIA - Discharge Planning Initial Assessment Updated by [email or web address]: Soila Charu on 11/24/19 12:26 pm * Is the patient Alert and Oriented? Yes * How many steps to enter\exit or inside your home? 4 RAMP * PCP STECKER * [facility] * Preadmission Environment Home with Family * ADLs Independent * Other Equipment REQUESTING A ROLLATOR * List name and contact numbers for known caregivers / representatives who currently or will assist patient after discharge: ARIANNA Blanton [phone] * Verbal permission to speak to the caregivers and representatives has been obtained from the patient. Yes * Community resources currently utilized None * Additional services required to return to the preadmission environment? No * Can the patient safely return to the preadmission environment? Yes * Has this patient been hospitalized within the prior 30 days at any hospital? No Last DP export: 11/24/19 11:46 am Patient Name: STEVE RADFORD Page 27118 at 1643 All edits/amendments must be made on the electronic document DICTATION DATE: 11/24/191642 MEDICAL INSTRUMENT TECHNICIAN: SALVATORE 11/24/191642 RPT#: [id number] DC DATE: STATUS: ADM IN [facility] [address] [facility] [place] [address] END OF REPORT
--- NOTE | 2019-11-24 19:27 | NUR ---
REPORT RECEIVED AND ROUNDING COMPLETE. PATIENT SITTING ON THE SIDE OF HIS BED, PATIENT HAS A LEFT AV FISTULA WITH DRESSING INTACT. HE HAS ARIGHT AC PIV THAT IS WRAPPED IN COBAN TO KEEP HIM FROM PULLING IT OUT. PATIENT IS SALIN LOCKED AT THIS TIME. PATIENT IS HARD OF HEARING. PATIENT HAS TWO BARS OF SOAP IN HIS BED FOR LEG CRAMPS. PATIENT STATES HE HAS NO NEEDS AT THIS TIME. NO DISTESS NOTES. CALL LIGHT WITHIN REACH AND BED IN LOWEST LOCKED POSITION. BED ALARM IS ON.
[2019-11-25 04:11] VITALS: BP 99/52
[2019-11-25 07:02] LABS: BASOPHILS 0.3 % (0-2); EOSINOPHILS 3.8 % (0-7); HEMATOCRIT 35.6 % (42.0-54.0); HEMOGLOBIN 11.3 g/dL (13.5-17.5); IMMATURE GRANULOCYTES 0.9 % (0-5); LYMPHOCYTES 23.3 % (15-50); MCH 31.3 pg (26.0-34.0); MCHC 31.7 g/dL (31.0-37.0); MCV 98.6 fL (80.0-100.0); NEUTROPHILS 57.7 % (40-80); PLATELET COUNT 200 10x3/uL (130-400); RBC 3.61 10x6/uL (4.20-6.10); RDW 14.3 % (11.5-14.5); WBC 6.6 10x3/uL (4.8-10.8)
[2019-11-25 07:20] LABS: ANION GAP 17.8 mmol/L (8-16); CALCIUM 9.1 mg/dL (8.5-10.1); CARBON DIOXIDE 22.6 mmol/L (21.0-32.0); CREATININE - SERUM 7.5 mg/dL (0.6-1.3); MAGNESIUM - SERUM 2.3 mg/dL (1.8-2.4); PHOSPHOROUS 5.1 mg/dL (2.5-4.9); POTASSIUM - SERUM 4.4 mmol/L (3.5-5.1)
[2019-11-25 08:12] VITALS: BP 113/47
--- NOTE | 2019-11-25 11:30 | MORECARE ---
CASE MANAGEMENT DISCHARGE SUMMARY PATIENT: STEVE RADFORD UNIT: [id number] ADM DATE: 11/19/19 AGE: 84 : 33 SEX: M ROOM/BED: D.6785 AUTHOR: JESSICADOC PHYSICIAN: REFERRING PHYSICIAN: TERRENCE ESPINOZA MD DATE OF SERVICE: 11/25/19 Discharge Plan Patient Name: STEVE RADFORD Facility: [facility]:[place] : 1935 Planned Disposition: Home Anticipated Discharge Date: Discharge Date: Expected LOS: Initial Reviewer: [email or web address] Initial Review Date: 11/19/2019 Generated: 11/25/19 12:30 pm Comments DCP- Discharge Planning Updated by [email or web address]: Soila Box on 11/24/19 3:[address] CM spoke with [place] Patient [phone] and this is the DME company he dropped off the order to for rollator. They stated that his rollator is ready just call and let them know when he is discharged. CM will continue to follow and assist as needed with discharge planning / needs. DCP- Discharge Planning Updated by [email or web address]: Soila Box on 11/24/19 11:[address] Patient Name: STEVE RADFORD Admission Status: ER Accout number: [id number] Admission Date: 11-19-2019 : 1935 Admission Diagnosis:METABOLIC ENCEPHALOPATHY Attending: TERRENCE AVILES Current LOS: 5 Anticipated DC Date: Planned Disposition: Home Primary Insurance: MEDICARE A & B Discharge Planning Comments: CM met with patient to complete initial dc planning assessment. CM educated patient on the CM role and verbal consent given by patient to complete assessment. Patient lives at home with family. Patient is independent. At discharge patient plans to return home and feels this is a safe discharge. CM discussed availability of home health, rehab services, and medical equipment. Patient is requesting a rollator, he states that he had an order for one and dropped it off at the DME on [facility] where his gets her 02. CM will check on this for him. Patient will have family to transport home. Patient has dialysis next door at [facility] - MWF @ 0600. Patient denied known discharge needs at this time. CM will continue to follow and will assist as needed with dc plans/needs. Computer Architect: Soila Box DCP- Discharge Planning Updated by [id number]: Soila Box on 11/23/19 4:[address] CM attempted to call patient's Arianna Radford [phone] to speak to her regarding discharge planning / needs. CM has tried to call two different times and has gotten a busy signal each time. CM will continue to follow for discharge planning / needs. DCPIA - Discharge Planning Initial Assessment Updated by [email or web address]: Soila Charu on 11/24/19 12:26 pm * Is the patient Alert and Oriented? Yes * How many steps to enter\exit or inside your home? 4 RAMP * PCP STECKER * Pharmacy [facility] [place] [place] * Preadmission Environment Home with Family * ADLs Independent * Other Equipment REQUESTING A ROLLATOR * List name and contact numbers for known caregivers / representatives who currently or will assist patient after discharge: ARIANNA Blanton [phone] * Verbal permission to speak to the caregivers and representatives has been obtained from the patient. Yes * Community resources currently utilized None * Additional services required to return to the preadmission environment? No * Can the patient safely return to the preadmission environment? Yes * Has this patient been hospitalized within the prior 30 days at any hospital? No Last DP export: 11/24/19 3:43 pm Patient Name: STEVE RADFORD Page 58510 at 1130 All edits/amendments must be made on the electronic document DICTATION DATE: 11/25/19 1130 CASHIER TICKET SELLING: SALVATORE 11/25/19 1130 RPT#: [id number] DC DATE: STATUS: ADM IN [facility] [address] [facility] [place] [address] END OF REPORT
[2019-11-25] MEDS ORDERED: ROCEPHIN 1 GM/D51 G1 IV (14:45)
[2019-11-25] MEDS ORDERED: HALDOL5 MG/ML IM (14:46)
[2019-11-25] MEDS ORDERED: COLACE100 MG PO (14:46)
[2019-11-25] MEDS ORDERED: LOPRESSOR25 MG PO (14:46)
[2019-11-25] MEDS ORDERED: TESSALON PERLE100 MG PO (14:46)
[2019-11-25] MEDS ORDERED: MELATONIN 3 MG1 TAB PO (14:47)
--- NOTE | 2019-11-25 17:51 | NUR ---
PT DISHARGED TO ROOM 1112A. PIV LEFT IN PLACE. FAMILY NOTIFIED.
--- NOTE | 2019-11-25 18:36 | MORECARE ---
CASE MANAGEMENT DISCHARGE SUMMARY PATIENT: STEVE RADFORD UNIT: [id number] ADM DATE: 11/19/19 AGE: 84 : 33 SEX: M ROOM/BED: D.8864 AUTHOR: JESSICADOC PHYSICIAN: REFERRING PHYSICIAN: TERRENCE ESPINOZA MD DATE OF SERVICE: 11/25/19 Discharge Plan Patient Name: STEVE RADFORD Facility: [facility]:[place] : 1935 Planned Disposition: Home Anticipated Discharge Date: Discharge Date: 11/25/2019 Expected LOS: Initial Reviewer: [email or web address] Initial Review Date: 11/19/2019 Generated: 11/25/19 7:35 pm Comments DCP- Discharge Planning Updated by [id number]: Soila Box on 11/24/19 3:[address] CM spoke with Lebanese Angie Patient [phone] and this is the DME company he dropped off the order to for rollator. They stated that his rollator is ready just call and let them know when he is discharged. CM will continue to follow and assist as needed with discharge planning / needs. DCP- Discharge Planning Updated by [email or web address]: Soila Box on 11/24/19 11:[address] Patient Name: STEVE RADFORD Admission Status: ER Accout number: [id number] Admission Date: 11-19-2019 : 1935 Admission Diagnosis:METABOLIC ENCEPHALOPATHY Attending: TERRENCE AVILES Current LOS: 5 Anticipated DC Date: Planned Disposition: Home Primary Insurance: MEDICARE A & B Discharge Planning Comments: CM met with patient to complete initial dc planning assessment. CM educated patient on the CM role and verbal consent given by patient to complete assessment. Patient lives at home with family. Patient is independent. At discharge patient plans to return home and feels this is a safe discharge. CM discussed availability of home health, rehab services, and medical equipment. Patient is requesting a rollator, he states that he had an order for one and dropped it off at the DME on [facility] where his gets her 02. CM will check on this for him. Patient will have family to transport home. Patient has dialysis next door at [facility] - MWF @ 0600. Patient denied known discharge needs at this time. CM will continue to follow and will assist as needed with dc plans/needs. Customs Compliance Director: Soila Box DCP- Discharge Planning Updated by [email or web address]: Soila Box on 11/23/19 4:[address] CM attempted to call patient's Arianna Radford [phone] to speak to her regarding discharge planning / needs. CM has tried to call two different times and has gotten a busy signal each time. CM will continue to follow for discharge planning / needs. DCPIA - Discharge Planning Initial Assessment Updated by [email or web address]: Soila Charu on 11/24/19 12:26 pm * Is the patient Alert and Oriented? Yes * How many steps to enter\exit or inside your home? 4 RAMP * PCP STECKER * [place] [facility] * Preadmission Environment Home with Family * ADLs Independent * Other Equipment REQUESTING A ROLLATOR * List name and contact numbers for known caregivers / representatives who currently or will assist patient after discharge: ARIANNA Blanton [phone] * Verbal permission to speak to the caregivers and representatives has been obtained from the patient. Yes * Community resources currently utilized None * Additional services required to return to the preadmission environment? No * Can the patient safely return to the preadmission environment? Yes * Has this patient been hospitalized within the prior 30 days at any hospital? No Coverage Notice Reviewer: [id number] Ching Notice Issued Date-Time: 11/25/2019 11:15 Notice Type: IM Discharge Notice Notice Delivered To: Patient Relationship to Patient: Merchandise Worker Name: Delivery Method: HAND - Hand Delivered Yuliya Days: Prior Verbal Notification: Recipient Understood Notice: Yes Recipient Signature: Yes Med Rec Note Co-signed by Attending: Coverage Notice Comment: DC IMM delivered, explained, signed by the patient, and placed in his chart. Signed form also left with patient. Reviewer: [id number] Harvinder Ching Notice Issued Date-Time: 11/25/2019 11:30 Notice Type: Patient Choice Letter Notice Delivered To: Patient Relationship to Patient: Merchandise Worker Name: Delivery Method: HAND - Hand Delivered Yuliya Days: Prior Verbal Notification: Recipient Understood Notice: Yes Recipient Signature: Yes Med Rec Note Co-signed by Attending: Coverage Notice Comment: CHOICE SIGNED FOR IP REHAB Last DP export: 11/25/19 10:30 am Patient Name: STEVE RADFORD Page 86660 at 1836 All edits/amendments must be made on the electronic document DICTATION DATE: 11/25/191834 SET DESIGNER: SALVATORE 11/25/191834 RPT#: [id number] DC DATE:11/25/19 STATUS: DIS IN [facility] [address] [place] [address] END OF REPORT
--- NOTE | 2019-11-25 18:43 | MORECARE ---
CASE MANAGEMENT DISCHARGE SUMMARY PATIENT: STEVE RADFORD UNIT: [id number] ADM DATE: 11/19/19 AGE: 84 : 33 SEX: M ROOM/BED: D.0483 AUTHOR: JESSICA,DOC PHYSICIAN: REFERRING PHYSICIAN: TERRENCE ESPINOZA MD DATE OF SERVICE: 11/25/19 Discharge Plan Patient Name: STEVE RADFORD Facility: [facility]:[place] : 1935 Planned Disposition: Home Anticipated Discharge Date: Discharge Date: 11/25/2019 Expected LOS: Initial Reviewer: [email or web address] Initial Review Date: 11/19/2019 Generated: 11/25/19 7:43 pm Comments DCP- Discharge Planning Updated by [email or web address]: Mary Ching on 11/25/19 5:[address] Patient Name: STEVE RADFORD Encounter No: [id number] : 1935 Primary Insurance: MEDICARE A & B Anticipated DC Date: Planned Disposition: Home External Planned Provider: : DCP follow-up note: CM met with pt for follow up to dc plan. Patient is weak and unsteady on feet. Discussed with patient concerns of going home, and not being able to get out of the car to get in the house. Patient agrees with the concern. CM spoke with the patient about IP rehab, and SNF. TERESA signed for IP rehab at [facility]. Cm spoke with [place] at rehab, and they have agreed to accept pt. DC IMM delivered, explained, signed by the patient, and placed in his chart. Signed form also left with patient. Mary Ching MSN,RN,CM DCP- Discharge Planning Updated by [email or web address]: Soila Box on 11/24/19 3:[address] CM spoke with [place] Patient [phone] and this is the DME company he dropped off the order to for rollator. They stated that his rollator is ready just call and let them know when he is discharged. CM will continue to follow and assist as needed with discharge planning / needs. DCP- Discharge Planning Updated by [email or web address]: Soila Box on 11/24/19 11:[address] Patient Name: STEVE TERRAL Admission Status: ER Accout number: [id number] Admission Date: 11-19-2019 : 1935 Admission Diagnosis:METABOLIC ENCEPHALOPATHY Attending: TERRENCE AVILES Current LOS: 5 Anticipated DC Date: Planned Disposition: Home Primary Insurance: MEDICARE A & B Discharge Planning Comments: CM met with patient to complete initial dc planning assessment. CM educated patient on the CM role and verbal consent given by patient to complete assessment. Patient lives at home with family. Patient is independent. At discharge patient plans to return home and feels this is a safe discharge. CM discussed availability of home health, rehab services, and medical equipment. Patient is requesting a rollator, he states that he had an order for one and dropped it off at the [facility] on [facility] where his gets her 02. CM will check on this for him. Patient will have family to transport home. Patient has dialysis next door at [facility] - MWF @ 0600. Patient denied known discharge needs at this time. CM will continue to follow and will assist as needed with dc plans/needs. Pecan Grower: Soila Box DCP- Discharge Planning Updated by [email or web address]: Soila Box on 11/23/19 4:[address] CM attempted to call patient's Arianna Radford [phone] to speak to her regarding discharge planning / needs. CM has tried to call two different times and has gotten a busy signal each time. CM will continue to follow for discharge planning / needs. DCPIA - Discharge Planning Initial Assessment Updated by [email or web address]: Soila Box on 11/24/19 12:26 pm * Is the patient Alert and Oriented? Yes * How many steps to enter\exit or inside your home? 4 RAMP * PCP STECKER * Pharmacy [facility] [place] * Preadmission Environment Home with Family * ADLs Independent * Other Equipment REQUESTING A ROLLATOR * List name and contact numbers for known caregivers / representatives who currently or will assist patient after discharge: ARIANNA Blanton [phone] * Verbal permission to speak to the caregivers and representatives has been obtained from the patient. Yes * Community resources currently utilized None * Additional services required to return to the preadmission environment? No * Can the patient safely return to the preadmission environment? Yes * Has this patient been hospitalized within the prior 30 days at any hospital? No Coverage Notice Reviewer: [id number] Harvnider MeloMary Edds Notice Issued Date-Time: 11/25/2019 11:15 Notice Type: IM Discharge Notice Notice Delivered To: Patient Relationship to Patient: Movie Stunt Performer Name: Delivery Method: HAND - Hand Delivered Yuliya Days: Prior Verbal Notification: Recipient Understood Notice: Yes Recipient Signature: Yes Med Rec Note Co-signed by Attending: Coverage Notice Comment: DC IMM delivered, explained, signed by the patient, and placed in his chart. Signed form also left with patient. Reviewer: [id number] - Mary Humza Notice Issued Date-Time: 11/25/2019 11:30 Notice Type: Patient Choice Letter Notice Delivered To: Patient Relationship to Patient: Movie Stunt Performer Name: Delivery Method: HAND - Hand Delivered Yuliya Days: Prior Verbal Notification: Recipient Understood Notice: Yes Recipient Signature: Yes Med Rec Note Co-signed by Attending: Coverage Notice Comment: CHOICE SIGNED FOR IP REHAB Last DP export: 11/25/19 5:36 pm Patient Name: STEVE RADFORD Page 62304 at 1843 All edits/amendments must be made on the electronic document DICTATION DATE: 11/25/191842 DIRECTOR OF FIELD COORDINATION: SALVATORE 11/25/191842 RPT#: [id number] DC DATE:11/25/19 STATUS: DIS IN [place] [address] [place] [address] END OF REPORT
--- NOTE | 2019-11-26 07:46 | MORECARE ---
CASE MANAGEMENT DISCHARGE SUMMARY PATIENT: STEVE RADFORD UNIT: [id number] ADM DATE: 11/19/19 AGE: 84 : [birth year] SEX: M ROOM/BED: D.6983 AUTHOR: JESSICA,DOC PHYSICIAN: REFERRING PHYSICIAN: TERRENCE ESPINOZA MD DATE OF SERVICE: 11/26/19 Discharge Plan Patient Name: STEVE RADFORD Facility: [facility]:[place] : 1935 Planned Disposition: Home Anticipated Discharge Date: Discharge Date: 11/25/2019 Expected LOS: Initial Reviewer: [email or web address] Initial Review Date: 11/19/2019 Generated: 11/26/19 8:45 am Comments DCP- Discharge Planning Updated by [email or web address]: Mary Ching on 11/25/19 5:[address] Patient Name: STEVE RADFORD Encounter No: [id number] : 1935 Primary Insurance: MEDICARE A & B Anticipated DC Date: Planned Disposition: Home External Planned Provider: : DCP follow-up note: CM met with pt for follow up to dc plan. Patient is weak and unsteady on feet. Discussed with patient concerns of going home, and not being able to get out of the car to get in the house. Patient agrees with the concern. CM spoke with the patient about IP rehab, and SNF. TERESA signed for IP rehab at [facility]. Cm spoke with [place] at rehab, and they have agreed to accept pt. DC IMM delivered, explained, signed by the patient, and placed in his chart. Signed form also left with patient. Mary Ching MSN,RN,CM DCP- Discharge Planning Updated by [id number]: Soila Box on 11/24/19 3:[address] CM spoke with [facility] [facility] Patient [phone] and this is the DME company he dropped off the order to for rollator. They stated that his rollator is ready just call and let them know when he is discharged. CM will continue to follow and assist as needed with discharge planning / needs. DCP- Discharge Planning Updated by [email or web address]: Soila Box on 11/24/19 11:[address] Patient Name: STEVE TERRAL Admission Status: ER Accout number: [id number] Admission Date: 11-19-2019 : 1935 Admission Diagnosis:METABOLIC ENCEPHALOPATHY Attending: TERRENCE AVILES Current LOS: 5 Anticipated DC Date: Planned Disposition: Home Primary Insurance: MEDICARE A & B Discharge Planning Comments: CM met with patient to complete initial dc planning assessment. CM educated patient on the CM role and verbal consent given by patient to complete assessment. Patient lives at home with family. Patient is independent. At discharge patient plans to return home and feels this is a safe discharge. CM discussed availability of home health, rehab services, and medical equipment. Patient is requesting a rollator, he states that he had an order for one and dropped it off at the [facility] on [address] where his gets her 02. CM will check on this for him. Patient will have family to transport home. Patient has dialysis next door at [facility] - MWF @ 0600. Patient denied known discharge needs at this time. CM will continue to follow and will assist as needed with dc plans/needs. Accounts Receivable Administrator: Soila Box DCP- Discharge Planning Updated by [id number]: Soila Box on 11/23/19 4:[address] CM attempted to call patient's Arianna Radford [phone] to speak to her regarding discharge planning / needs. CM has tried to call two different times and has gotten a busy signal each time. CM will continue to follow for discharge planning / needs. DCPIA - Discharge Planning Initial Assessment Updated by [email or web address]: Soila Box on 11/24/19 12:26 pm * Is the patient Alert and Oriented? Yes * How many steps to enter\exit or inside your home? 4 RAMP * PCP STECKER * Pharmacy [facility] * Preadmission Environment Home with Family * ADLs Independent * Other Equipment REQUESTING A ROLLATOR * List name and contact numbers for known caregivers / representatives who currently or will assist patient after discharge: ARIANNA Blanton [phone] * Verbal permission to speak to the caregivers and representatives has been obtained from the patient. Yes * Community resources currently utilized None * Additional services required to return to the preadmission environment? No * Can the patient safely return to the preadmission environment? Yes * Has this patient been hospitalized within the prior 30 days at any hospital? No Coverage Notice Reviewer: [id number] Harvinder MeloMary Humza Notice Issued Date-Time: 11/25/2019 11:15 Notice Type: IM Discharge Notice Notice Delivered To: Patient Relationship to Patient: Collision Technician Name: Delivery Method: HAND - Hand Delivered Yuliya Days: Prior Verbal Notification: Recipient Understood Notice: Yes Recipient Signature: Yes Med Rec Note Co-signed by Attending: Coverage Notice Comment: DC IMM delivered, explained, signed by the patient, and placed in his chart. Signed form also left with patient. Reviewer: [id number] - Mary Humza Notice Issued Date-Time: 11/25/2019 11:30 Notice Type: Patient Choice Letter Notice Delivered To: Patient Relationship to Patient: Collision Technician Name: Delivery Method: HAND - Hand Delivered Yuliya Days: Prior Verbal Notification: Recipient Understood Notice: Yes Recipient Signature: Yes Med Rec Note Co-signed by Attending: Coverage Notice Comment: CHOICE SIGNED FOR IP REHAB Last DP export: 11/25/19 5:43 pm Patient Name: STEVE RADFORD Page [phone] at 0746 All edits/amendments must be made on the electronic document DICTATION DATE: 11/26/1945 PRINT LINE OPERATOR: SALVATORE 11/26/19 0745 RPT#: [id number] DC DATE:11/25/19 STATUS: DIS IN [id number] [place] [address] END OF REPORT
[2019-11-26 13:10] LABS: EHRLICHIA CHAFF IGG Negative (Neg:<1:64); EHRLICHIA CHAFF IGM Negative (Neg:<1:20); HGE IGG TITER Negative (Neg:<1:64); HGE IGM TITER Negative (Neg:<1:20)
== END 2019-11-25 17:54 | DRG 70 ==
LOC: D.ER 10:14 → D.ICU 14:32 → D.M2 14:32 → D.ICU 19:46 → D.CVICU 11-23 19:18 → D.M2 11-24 12:20
PROVIDERS: Family Medicine; Internal Medicine Nephrology; ADMIT Family Medicine; ATTEND Family Medicine
DX: G93.41 Metabolic encephalopathy (principal); N18.6 End stage renal disease; I12.0 Hypertensive chronic kidney disease with stage 5 chronic kidney disease or end stage renal disease; I48.92 Unspecified atrial flutter; I25.10 Atherosclerotic heart disease of native coronary artery without angina pectoris; Z99.2 Dependence on renal dialysis; D63.1 Anemia in chronic kidney disease; I48.91 Unspecified atrial fibrillation; I95.9 Hypotension, unspecified; R00.0 Tachycardia, unspecified

== ENCOUNTER 2019-11-25 19:00 | Inpatient (IN) | payer MEDICARE, OTHER ==
[~2019-11-25] VITALS: Ht 182.9 cm; Wt 73.6 kg
[~2019-11-25 19:00] MED LIST changes: +COLACE100 MG PO; +HALDOL5 MG/ML IM; +LOPRESSOR25 MG PO; +MELATONIN 3 MG1 TAB PO; +ROCEPHIN 1 GM/D51 G1 IV; +TESSALON PERLE100 MG PO
--- NOTE | 2019-11-25 19:20 | NUR ---
BEDSIDE REPORT COMPLETE. PT LYING IN BED SUPINE. HOB ELEVATED. ALERT AND ORIENTED X2. REORIENTED TO TIME AND PLACE. ORIENTED TO FLOOR, ROOM, BATHROOM, FUNCTIONS OF REMOTE. PT ON ROOM AIR. VS STABLE. RIGHT AC IV SALINE LOCKED. DRESSING INTACT. SWAB CAP IN USE. LEFT FOREARM FISTULA DRESSING INTACT. CALL LIGHT WITHIN REACH. BED ALARM ON. CPOC
[2019-11-25 23:05] VITALS: BP 115/54
[2019-11-25 23:24] VITALS: BP 115/54; BMI 23.5
[2019-11-26 00:50] VITALS: BP 109/49
--- NOTE | 2019-11-26 01:20 | NUR ---
PT LYING IN BED EYES CLOSED RESTING. RR EVEN AND UNLABORED. CALL LIGHT WITHIN REACH. BED ALARM ON. CPOC
--- NOTE | 2019-11-26 04:21 | NUR ---
PT LYING IN BED ON LEFT SIDE AWAKE AND CONFUSED. DENIES ANY NEEDS OR PAIN. NO SIGNS OF ACUTE DISTRESS NOTED. CALL LIGHT WITHIN REACH. BED ALARM ON. CPOC
[2019-11-26 05:25] VITALS: BP 114/52
--- NOTE | 2019-11-26 06:20 | NUR ---
PT SITTING UP IN W/C READING NEWSPAPER. NO SIGNS OF ACUTE DISTRESS NOTED. CALL LIGHT WITHIN REACH. CHAIR ALARM ON. CPOC
--- NOTE | 2019-11-26 07:40 | NUR ---
PT UP IN CHAIR, NO NEEDS NOTED FLUIDS AND CALL LIGHT WITHIN REACH
[2019-11-26 07:48] LABS: BASOPHILS 0.4 % (0-2); EOSINOPHILS 5.5 % (0-7); HEMATOCRIT 35.4 % (42.0-54.0); HEMOGLOBIN 11.3 g/dL (13.5-17.5); IMMATURE GRANULOCYTES 0.9 % (0-5); LYMPHOCYTES 24.4 % (15-50); MCH 31.7 pg (26.0-34.0); MCHC 31.9 g/dL (31.0-37.0); MCV 99.4 fL (80.0-100.0); MONOCYTES 12.5 % (2-11); NEUTROPHILS 56.3 % (40-80); PLATELET COUNT 217 10x3/uL (130-400); RBC 3.56 10x6/uL (4.20-6.10); RDW 14.3 % (11.5-14.5); WBC 6.7 10x3/uL (4.8-10.8)
[2019-11-26 07:59] LABS: ALBUMIN 2.7 g/dL (3.4-5.0); ANION GAP 16.2 mmol/L (8-16); BILIRUBIN - TOTAL 0.53 mg/dL (0.2-1.3); CREATININE - SERUM 6.3 mg/dL (0.6-1.3); POTASSIUM - SERUM 4.2 mmol/L (3.5-5.1); PROTEIN - SERUM 6.7 g/dL (6.4-8.2)
--- NOTE | 2019-11-26 09:16 | NUR ---
PT ROCEPHIN GIVEN RT ARM, IV PATENT UPON FLUSH,
--- NOTE | 2019-11-26 11:43 | NUR ---
PATIENT ADMITTED TO REHAB FROM ACUTE FLOOR. DR. STEVENSON IS PATIENT PCP. DISCHARGE PLANS ARE FOR PATIENT TO DSICHARGE BACK HOME WITH FAMILY. BERMUDIAN VIENNA PATIENT ([phone]) HAS AN ORDER FOR A ROLLATOR AT DISCHARGE. WILL CONTINUE TO FOLLOW WITH PATIENT.
--- NOTE | 2019-11-26 11:47 | NUR ---
PATIENT HAS [facility] ON - @ 0600. WILL CONTINUE TO FOLLOW WITH PATIENT.
[2019-11-26 12:00] VITALS: BP 120/55
[2019-11-26 13:11] VITALS: Ht 182.9 cm; Wt 73.6 kg
--- NOTE | 2019-11-26 19:13 | NUR ---
BEDSIDE REPORT COMPLETE. PT LYING IN BED SUPINE AWAKE. ALERT AND ORIENTED X2. REORIENTED TO TIME AND PLACE. JAMES IV SALINE LOCKED WITHOUT REDNESS OR SWELLING. DRESSING C/D/I. SWAB CAP INTACT. LEFT AV FISTULA WNL. DENIES ANY NEEDS OR PAIN. NO SIGNS OF ACUTE DISTRESS NOTED. CALL LIGHT WITHIN REACH. BED ALARM ON. CPOC
[2019-11-26 19:30] VITALS: BP 137/65
[2019-11-26 21:53] VITALS: BP 137/65
--- NOTE | 2019-11-26 23:45 | NUR ---
ASSISTED PT TO RESTROOM AND BACK TO BED WITH SBA. DENIES ANY OTHER NEEDS OR PAIN. CALL LIGHT WITHIN REACH. BED ALARM ON. CPOC
[2019-11-26 23:53] VITALS: BP 110/62
--- NOTE | 2019-11-27 00:33 | NUR ---
I have reviewed this patient and I concur with the Shift Assessment completed by the Licensed Practical Nurse today this shift.
--- NOTE | 2019-11-27 02:49 | NUR ---
RECIEVED REPORT. CHAIR ALARM SOUNDING. PT OBSERVED GETTING OUT OF WHEELCHAIR AND TRYING TO GET IN BED. ASSIST PT WITH GETTING COMFORTABLE IN BED. PT TOLERATED WELL. NO SIGNS OF DISTRESS NOTED. RESPIRATIONS EVEN AND UNLABORED. HEAD OF BED ELEVATED 30 DEGREES. MAMTA BED ALARM ON AND ACTIVE. BED IS IN LOWEST POSITION AND SIDERAILS ARE UP x2. CALL LIGHT AND OTHER PERSONAL ITEMS WITH IN REACH. PT HAS NO COMPLAINTS AT THIS TIME. WILL CONTINUE TO MONITOR
[2019-11-27 06:12] VITALS: BP 102/55
--- NOTE | 2019-11-27 07:15 | NUR ---
AROUSES EASILY.ASSESSMENT COMPLETED.FISTULA TO LEFT ARM.SL TO RT UPPER ARM.WILL CONTINUE WITH CURRENT PLAN OF CARE.CL IN EASY REACH,BED IN LOW POSITION.BED ALARM ON AND WORKING.
--- NOTE | 2019-11-27 08:17 | RHP ---
PATIENT: STEVE RADFORD MEDICAL RECORD: [id number] ACCOUNT: [id number] LOCATION:[facility] : [birth year] ADMISSION DATE: 11/25/19 REHABILITATION HISTORY AND PHYSICAL EXAMINATION POST ADMISSION PHYSICIAN EXAMINATION ADMITTING DIAGNOSIS: Metabolic encephalopathy. HISTORY OF PRESENT ILLNESS: The patient is an 84-year-old gentleman who presented to Emergency Room on 11/18/2018 with confusion. He was normal, went to bed, woke with confusion, it was difficult to determine what his baseline was. The patient had been seen in the clinic by Dr. Starks the day before with chronic back pain and given baclofen and hydrocodone. He apparently had a baseline where he was alert and oriented and was very appropriate in the clinic the day before. On exam, he was only alert to person only, did not follow commands. He had no obvious physical signs. His head CT was negative. His chest x-ray was okay. The patient was admitted with neuro and nephrology consult, both felt without elevated white count, it was more unlikely metabolic encephalopathy due to the hydrocodone plus baclofen. On 11/22/2019, cardiology was consulted secondary to supraventricular tachycardia. The patient has had prolonged WI segment with first-degree heart block, but his QT interval was normal per cardiology. Otherwise, he was okay. The patient did not feel like there was need for any type of cardiac intervention at that time. He has had tachycardia. Previously, he was living with his , was independent with a walker and ADLs and mobility. Currently, he has prolonged immobility, progressive generalized weakness especially in his lower extremities affecting his tolerance to PT. He is very fatigued, has limited flexion, extension, has mod to max assist for ADLs and mod to max assist for sit to stand and bed to chair. He wants to be able to return home at his prior level of functioning. COMORBIDITIES: In this patient include acute mental status changes, chronic anemia, chronic kidney disease, cognitive deficits, confusion and encephalopathy. He has got lethargy, history of coronary artery bypass grafting, hypotension and history of cholelithiasis. PAST MEDICAL HISTORY: Significant for a CVA in the past. He has got a history of hypotension, electrolyte abnormalities, he has got a history of arthritis. PAST SURGICAL HISTORY: Includes appendectomy and open heart bypass and stent placement. ALLERGIES: No known drug allergies. CURRENT MEDICATIONS: Include Flomax 0.4 mg daily. He is on a multivitamin daily, losartan 100 mg daily, finasteride 5 mg daily, Lipitor 20 mg daily, aspirin 81 mg daily, allopurinol 100 mg daily, Amaryl 4 mg daily, carvedilol 3.125 mg b.i.d. with meals, Protonix 20 mg daily, furosemide 40 mg b.i.d., Timoptic 1 drop b.i.d., Xalatan eye drops bedtime, amlodipine 5 mg b.i.d., [place] 5/325 one tab every 4 to 6 hours p.r.n., Catapres as needed for elevated blood pressure and vitamin D he is on 5000 units every week. HABITS: No alcohol or tobacco use. FAMILY HISTORY: Noncontributory. HISTORY AND PHYSICAL [id number] STEVE RADFORD SOCIAL HISTORY: The patient hopes to return back home and get back to his prior level of functioning. REVIEW OF SYSTEMS: GENERAL: Does complain of weakness and fatigue. HEENT: Denies cold, cough, or congestion. CARDIOVASCULAR: Denies any chest pain. PHYSICAL EXAMINATION: VITAL SIGNS: Stable, afebrile. GENERAL: Elderly gentleman in no acute distress upon exam. HEENT: Normocephalic and atraumatic. Mucosa moist. NECK: Supple. No lymphadenopathy. LUNGS: Clear at this time in upper gonzalez. HEART: Regular rate and rhythm. No murmurs, rubs or gallops. ABDOMEN: Soft, benign, and nondistended. Positive bowel sounds times 4. EXTREMITIES: No clubbing, cyanosis or edema. His AV fistula is in place. NEUROLOGIC: He does have proximal muscle weakness. ASSESSMENT: This is an 84-year-old gentleman admitted to the rehab with a working diagnosis of acute metabolic encephalopathy. The patient has potential to make improvement. We instituted the following multidisciplinary therapies including, but not limited to physical, occupational, respiratory, speech, nutritional services, prosthetics and orthotics. Given his complex medical condition and risks for more complications, rehabilitation services cannot be provided at a low level of care such as skilled nurse facility. PLAN: 1. Admit to [facility] for intensive inpatient therapy to include the following disciplines. A. Physical therapy to improve gait, all transfer skills and bed mobility to a modified independent level. B. Occupational therapy to improve activities of daily living. C. Case management to assist with discharge planning and placement options. D. Nutrition to assist with nutritional needs. E. Rehabilitation nursing to assist in monitoring the patient's underlying medical condition and to assist with any type of bowel or bladder management. 2. The patient's current medication and medical care will be continued. 3. The patient will be placed on standard fall precautions. 4. The patient's estimated length of stay is approximately 7-10 days. 5. We will discuss this patient during care team staff meeting this week. TRANSINT:[id number] Voice Confirmation ID: [id number] DOCUMENT ID: [id number] JORGE LUIS notes whether there has been none or any medical/functional change since admission: - No change since prescreen. JORGE LUIS attests patient continues to be appropriate for IRF: - Continues to be appropriate. HISTORY AND PHYSICAL [id number] STEVE RADFORD,ALBERTO MCMAHON MD at 0817 CC: [id number] DICTATION DATE: 11/26/19 0839 ASSISTANT PORTFOLIO MANAGER: 11/26/19 1102 ADM IN [id number] [place] [address]
[2019-11-27 11:04] LABS: BASOPHILS 0.3 % (0-2); EOSINOPHILS 4.4 % (0-7); HEMATOCRIT 34.6 % (42.0-54.0); HEMOGLOBIN 11.3 g/dL (13.5-17.5); IMMATURE GRANULOCYTES 0.6 % (0-5); LYMPHOCYTES 20.3 % (15-50); MCH 32.1 pg (26.0-34.0); MCHC 32.7 g/dL (31.0-37.0); MCV 98.3 fL (80.0-100.0); MEAN PLATELET VOLUME 10.3 fL (7.4-10.4); MONOCYTES 14.8 % (2-11); NEUTROPHILS 59.6 % (40-80); PLATELET COUNT 213 10x3/uL (130-400); RBC 3.52 10x6/uL (4.20-6.10); RDW 14.4 % (11.5-14.5)
[2019-11-27 11:19] LABS: ALBUMIN 2.7 g/dL (3.4-5.0); ANION GAP 16.9 mmol/L (8-16); BILIRUBIN - TOTAL 0.39 mg/dL (0.2-1.3); CARBON DIOXIDE 23.5 mmol/L (21.0-32.0); CREATININE - SERUM 7.7 mg/dL (0.6-1.3); POTASSIUM - SERUM 4.4 mmol/L (3.5-5.1); PROTEIN - SERUM 6.9 g/dL (6.4-8.2)
[2019-11-27 12:00] VITALS: BP 122/60
[2019-11-27 18:13] VITALS: BP 125/56
--- NOTE | 2019-11-27 19:40 | NUR ---
PT SENT TO DIALYSIS. DENIES NEEDS BEFORE LEAVING.
[2019-11-28 00:30] VITALS: BP 115/62
--- NOTE | 2019-11-28 01:11 | NUR ---
I have reviewed this patient and I concur with the Shift Assessment completed by the Licensed Practical Nurse today this shift.
[2019-11-28 06:14] VITALS: BP 120/64
[2019-11-28 12:30] VITALS: BP 88/54
[2019-11-28 18:30] VITALS: BP 121/56
--- NOTE | 2019-11-28 19:13 | NUR ---
PT SITTING UP IN BED WATCHING TV. CL IN REACH. DENIES NEEDS AT THIS TIME. BED IN LOW SIDE RAILS X2. BED ALARM ON. RESP EVEN AND UNLABORED. CONFUSED MORE AT NIGHT. LUNGS CLEAR. BOWEL ACTIVE X4. WILL CONTINUE TO MONITOR.
--- NOTE | 2019-11-29 00:30 | NUR ---
I have reviewed this patient and I concur with the Shift Assessment completed by the Licensed Practical Nurse today this shift.
[2019-11-29 00:37] VITALS: BP 135/96
[2019-11-29 00:38] VITALS: BP 114/61
--- NOTE | 2019-11-29 05:33 | NUR ---
SHOWER GIVEN THIS AM.
[2019-11-29 06:13] VITALS: BP 120/59
--- NOTE | 2019-11-29 07:29 | NUR ---
PT ASLEEP AROUSES EASILY TO VOICE, NO NEEDS NOTED, FALL PRECAUTIONS IN PLACE, FLUIDS/CALL LIGHT WITHIN REACH
[2019-11-29 09:26] VITALS: BP 115/54
[2019-11-29 12:41] VITALS: BP 101/49
[2019-11-29 18:47] VITALS: BP 126/57
--- NOTE | 2019-11-29 19:32 | NUR ---
PT SITTING UP IN BED WATCHING TV. CL IN REACH. DENIES NEEDS AT THIS TIME. BED IN LOW SIDE RAILS X2. RESP EVEN AND UNLABORED. BED ALARM ON. LUNGS CLEAR. BOWEL ACTIVE X4. WILL CONTINUE TO MONITOR.
--- NOTE | 2019-11-29 22:35 | NUR ---
I have reviewed this patient and I concur with the Shift Assessment completed by the Licensed Practical Nurse today this shift.
[2019-11-30 00:16] VITALS: BP 107/52
--- NOTE | 2019-11-30 03:35 | NUR ---
PT LYING IN BED SUPINE EYES CLOSED RESTING. RR EVEN AND UNLABORED. CALL LIGHT WITHIN REACH. BED ALARM ON. CPOC
[2019-11-30 06:24] VITALS: BP 115/50
[2019-11-30 06:59] LABS: BASOPHILS 0.4 % (0-2); EOSINOPHILS 4.6 % (0-7); HEMATOCRIT 31.3 % (42.0-54.0); HEMOGLOBIN 10.3 g/dL (13.5-17.5); IMMATURE GRANULOCYTES 0.9 % (0-5); LYMPHOCYTES 26.3 % (15-50); MCH 31.8 pg (26.0-34.0); MCHC 32.9 g/dL (31.0-37.0); MCV 96.6 fL (80.0-100.0); MEAN PLATELET VOLUME 10.7 fL (7.4-10.4); MONOCYTES 18.8 % (2-11); PLATELET COUNT 186 10x3/uL (130-400); RBC 3.24 10x6/uL (4.20-6.10); RDW 14.3 % (11.5-14.5); WBC 5.6 10x3/uL (4.8-10.8)
[2019-11-30 07:06] LABS: ANION GAP 14.2 mmol/L (8-16); CALCIUM 8.7 mg/dL (8.5-10.1); CREATININE - SERUM 8.7 mg/dL (0.6-1.3); POTASSIUM - SERUM 4.2 mmol/L (3.5-5.1)
--- NOTE | 2019-11-30 07:26 | NUR ---
RESTING WO DISTRESS. BED ALARM ON. CL IN REACH.
--- NOTE | 2019-11-30 10:11 | NUR ---
DAUGHTER AT BS. RESTING WO DISTRESS AT THIS TIME. PAIN MED GVJOHN THIS AM.
--- NOTE | 2019-11-30 10:12 | NUR ---
Nutrition Follow-up: Chart reviewed. Noted pt gets HD on MWF. Diet: Renal Mech Soft PO intake: 75-100% x last 7 meals recorded Last BM: 11/30/19. WT: 162# (11/30/19); Admit WT: 173# (11/25/19)- note HD patient Meds noted: miralax. Labs noted: BUN 70(H), Cr 8.7(H), GFR 6(L), Glu 107(H) Recommend continue current diet. Enocurage PO intake. RD following.
--- NOTE | 2019-11-30 10:18 | NUR ---
PARTICIPATING IN THERAPY AT THIS TIME.
[2019-11-30 12:00] VITALS: BP 122/60
--- NOTE | 2019-11-30 16:24 | NUR ---
NO CHANGE IN ASSESSMENT. IN DIALYSIS AT THID TIME.
--- NOTE | 2019-11-30 21:15 | NUR ---
PTS SON HERE, HE CALLED HIM TO TAKE HIM HOME. I EXPLAINED TO HIM WHAT WAS HAPPENING, AND HE EXPLAINED IT TO HIS FATHER AGAIN, AND HE AGREED TO STAY IN HOSPITAL UNTIL AM TO TALK TO THE DR. SON LEFT TO GO BACK HOME.
--- NOTE | 2019-11-30 23:07 | NUR ---
RESIDENT IS SITTING IN A WC IN HIS ROOM COMING BACK AND FORTH TO THE NURSES STATION DEMANDING TO BE RELEASED TO GO HOME. HE STATED DR JEAN TOLD HILoretta HE COULD GO HOME TONIGHT. HE HAS BEEN INFORMED NUMEROUS TIME THAT DR EVANGELISTA IS NOT RELEASING HIM AT THIS TIME, AND COULD ONLY LEAVE AGAINST MEDICAL ADVICE. HE DOES NOT WANT TO DO THIS.
--- NOTE | 2019-11-30 23:11 | NUR ---
PT SITTING ON THE SIDE OF HIS BED. HE STATES HE IS TIRED. I STATED: "WELL, LAY DOWN AND GO TO SLEEP" HE DIDNT. WILL CONTINUE TO MONITOR.
[2019-12-01 00:03] VITALS: BP 129/78
--- NOTE | 2019-12-01 01:48 | NUR ---
I have reviewed this patient and I concur with the Shift Assessment completed by the Licensed Practical Nurse today this shift.
--- NOTE | 2019-12-01 04:38 | NUR ---
RESTING IN BED WITH EYES CLOSED.
[2019-12-01 06:12] VITALS: BP 117/78
[2019-12-01 07:03] LABS: BASOPHILS 0.5 % (0-2); EOSINOPHILS 2.9 % (0-7); HEMATOCRIT 30.8 % (42.0-54.0); HEMOGLOBIN 10.1 g/dL (13.5-17.5); IMMATURE GRANULOCYTES 0.5 % (0-5); MCH 31.5 pg (26.0-34.0); MCHC 32.8 g/dL (31.0-37.0); MEAN PLATELET VOLUME 10.1 fL (7.4-10.4); NEUTROPHILS 55.1 % (40-80); PLATELET COUNT 169 10x3/uL (130-400); RBC 3.21 10x6/uL (4.20-6.10); RDW 14.2 % (11.5-14.5); WBC 6.1 10x3/uL (4.8-10.8)
--- NOTE | 2019-12-01 07:23 | NUR ---
RESTING. RESP EVEN AND UNLABORED. BED ALARM ON. CL IN REACH.
[2019-12-01 07:31] LABS: ALBUMIN 2.4 g/dL (3.4-5.0); ANION GAP 14.5 mmol/L (8-16); BILIRUBIN - TOTAL 0.38 mg/dL (0.2-1.3); CALCIUM 8.9 mg/dL (8.5-10.1); CARBON DIOXIDE 24.7 mmol/L (21.0-32.0); CREATININE - SERUM 6.3 mg/dL (0.6-1.3); MAGNESIUM - SERUM 2.2 mg/dL (1.8-2.4); PHOSPHOROUS 4.9 mg/dL (2.5-4.9); POTASSIUM - SERUM 4.2 mmol/L (3.5-5.1); PROTEIN - SERUM 6.1 g/dL (6.4-8.2)
--- NOTE | 2019-12-01 11:20 | NUR ---
PATIENT DISCHARGING HOME TODAY WITH FAMILY. [facility] WILL PROVIDE THERAPY AT HOME. TERESA SIGNED, IMM SERVED AND EXPLAINED, ONE GIVEN TO PATIENT AND ONE FILED IN CHART. NO COMPARE DATA REVIEWED PATIENT SPOUSE IS A CLIENT OF [facility]PATIENT WILL CONTINUE WITH SAME HD DAYS AT [facility] @ 6:00AM.DISCHARGE INSTRUCTIONS FAXED TO PCP, HOME HEALTH AND REVIEWED WITH PATIENT SPOUSE PER PRIMARY NURSE.
[2019-12-01 12:07] VITALS: BP 104/63
--- NOTE | 2019-12-01 13:48 | NUR ---
HAD SHOWER TODAY PER OT.
--- NOTE | 2019-12-01 14:41 | NUR ---
ASSISTED TO CAR IN PER STAFF FOR [place] HOME.
== END 2019-12-01 14:42 | disposition home health service (06) | DRG 70 ==
LOC: D.REHAB 19:00
PROVIDERS: Internal Medicine Nephrology; ADMIT Emergency Medicine; ATTEND Emergency Medicine
DX: G93.41 Metabolic encephalopathy (principal); N18.6 End stage renal disease; I12.0 Hypertensive chronic kidney disease with stage 5 chronic kidney disease or end stage renal disease; I47.1 Supraventricular tachycardia; J98.11 Atelectasis; R53.83 Other fatigue; Z95.1 Presence of aortocoronary bypass graft; I95.9 Hypotension, unspecified; R41.89 Other symptoms and signs involving cognitive functions and awareness; D64.89 Other specified anemias; R41.82 Altered mental status, unspecified; I25.10 Atherosclerotic heart disease of native coronary artery without angina pectoris; D63.1 Anemia in chronic kidney disease; R53.1 Weakness; K80.20 Calculus of gallbladder without cholecystitis without obstruction; Z99.2 Dependence on renal dialysis

== ENCOUNTER → 2020-03-02 10:12 | Outpatient (CLI) | payer MEDICARE, OTHER ==
[2019-11-26 13:11] VITALS: BMI 21.8
== END | disposition home or self-care (01) ==
LOC: D.MRI 10:12
PROVIDERS: ATTEND Orthopaedic Surgery
DX: M54.16 Radiculopathy, lumbar region (principal)

== ENCOUNTER 2020-08-30 05:46 | Day surgery (SDC) | payer MEDICARE ==
[~2020-08-30] VITALS: Ht 182.9 cm; Wt 70.3 kg
--- NOTE | ~2020-08-30 | OP ---
PATIENT NAME: STEVE RADFORD MEDICAL RECORD: [id number] :31 LOCATION:[facility] ADMISSION DATE: SURGEON: MARCK CAO MD DATE OF OPERATION: 08/30/2020 REFERRED BY: José Gee MD and Julianna Austin DO PREOPERATIVE DIAGNOSIS: End-stage renal disease, dependence on hemodialysis. POSTOPERATIVE DIAGNOSIS: End-stage renal disease, dependence on hemodialysis. OPERATION PERFORMED: Laparoscopic implantation of peritoneal dialysis catheter. SURGEON: Marck Cao MD ANESTHESIA: General endotracheal per SPAR FINISHER PREOPERATIVE NOTE: This 84-year-old white male patient from [place], [place], has end-stage renal disease and is presently dialyzing 3 times a week at [facility]. He would like to do home peritoneal dialysis and he was brought to the operating room at this time to implant a catheter. DESCRIPTION OF PROCEDURE: Under general endotracheal anesthesia in supine position, the patient was prepped and draped in sterile manner. Moise catheter was inserted. A 5-mm Optiview XCEL type port with a 5-mm 0-degree laparoscope within it was inserted through a small incision in the left upper quadrant and subsequently a pneumoperitoneum established with carbon dioxide. I used the ADITU SAS flex neck a classic dual-cuffed coil adult-standard cuff to measure the proper distance above the symphysis pubis and that was just at the level of the umbilicus. I made a transverse left paramedian incision and cut down to the anterior rectus sheath and placed a 0 Vicryl pursestring suture. I then injected 0.25% Marcaine with epinephrine into the rectus muscle and the rectus sheath and directed downward along the course of the anticipated tunnel. I then used a Veress needle and a mini-step 7 to 8 Covidien laparoscopic trocar and inserted this through the anterior rectus sheath down to the level of the peritoneum and then angled it and advanced it inferiorly in the preperitoneal space, about half-way I then popped into the peritoneal cavity and the dialysis catheter was then inserted through that device and the trocar then removed. The deeper of the two Dacron felt cuffs was placed in the rectus sheath just deep to the anterior rectus fascia and the pursestring suture was tied with the blue line facing anteriorly. I used a 5-mm scope placed in the left lower quadrant to insert laparoscopic javier and divide some filmy adhesions around the umbilicus, which were result of prior appendicitis and appendectomy. I found no hernias or other complications. The new dialysis catheter was easily placed into the true pelvis and I was pleased with the position. The catheter was then brought through a subcutaneous tunnel, directed superiorly and laterally, so that it exited at a point in the left upper quadrant, really just slightly above the level of the umbilicus. The catheter was then attached to a transfer set and 1000 mL of saline were run into the abdomen. The pneumoperitoneum was evacuated and the patient placed into initially a Trendelenburg position and then reverse Trendelenburg position. A 1000 mL of saline ran quickly into the abdomen and was then siphoned out quite easily, so I was pleased with the tube function. The catheter was then flushed with 60 mL of Hep-Lock solution. The transfer set OPERATIVE REPORT [id number] PRABHAKARSTEVE valve was closed and it was capped with a Betadine cap. The incision at the level of the umbilicus was infiltrated with some additional Marcaine and then hemostasis having been assured with electrocautery. That wound was closed with interrupted inverted 3-0 Vicryl and a running intracuticular 4-0 Monocryl. The 5-mm port incision in the left lower quadrant and in the left upper quadrant was closed with interrupted inverted 3-0 Vicryl and the incisions were then all additionally sealed with Dermabond glue and dressed with Maxorb AG, Tegaderm and Cavilon skin prep. A Biopatch was placed on the catheter exit site and that catheter was then coiled and covered over with a 4 x 4 cm airstrip bordered gauze dressing. The patient at that point was awakened from his anesthetic and having tolerated it well was of course extubated and the Moise catheter removed and he was taken to the recovery room. PLAN: The patient will go home today and is given a prescription for tramadol 50 mg. He can have 10 of them, he can take one p.o. every 4 to 6 hours p.r.n. pain. Also he is advised to use ice off and on the operative field. He is to keep the operative sites dry and the dressings clean. He is not to start showering until advised to do so by the peritoneal dialysis nurse specialist at [facility]. They can start flushing his catheter next week. I will plan to see him back in my office in about 2 weeks, which will be I think on Saturday, the . Blood loss was about 2 mL, none replaced. Sponges, instruments and needles were accounted for. No drain was used and no surgical specimens submitted for histopathology. TRANSINT:[id number] Voice Confirmation ID: [id number] DOCUMENT ID: [id number] cc: MARCK Garcia MD CC: JOSÉ GEE MD and JULIANNA AUSTIN DO [id number] DICTATION DATE: 08/30/20 1133 WAREHOUSE SELECTOR: 08/30/20 1434 [facility] 08/30/20 [facility] [address] [place] [address]
[~2020-08-30 05:46] MED LIST changes: +BETAPACE 80 MG80 MG PO; +CARDIZEM60 MG PO; +DECADRON4 MG PO; +MUCINEX600 MG PO; +OMNICEF300 MG PO; +PROAIR HFA8.5 G1 INH
[2020-08-30 06:20] LABS: ANION GAP 15.6 mmol/L (8-16); CALCIUM 9.6 mg/dL (8.5-10.1); CREATININE - SERUM 8.9 mg/dL (0.6-1.3); POTASSIUM - SERUM 5.6 mmol/L (3.5-5.1)
[2020-08-30 06:44] LABS: BASOPHILS 0.4 % (0-2); HEMATOCRIT 40.9 % (42.0-54.0); IMMATURE GRANULOCYTES 0.7 % (0-5); LYMPHOCYTE ABS# 2.17 10x3/uL (1.32-3.57); LYMPHOCYTES 29.3 % (15-50); MCH 32.7 pg (26.0-34.0); MCHC 31.8 g/dL (31.0-37.0); MCV 102.8 fL (80.0-100.0); MEAN PLATELET VOLUME 9.7 fL (7.4-10.4); MONOCYTES 11.1 % (2-11); NEUTROPHIL ABS# 4.11 10x3/uL (1.78-5.38); NEUTROPHILS 55.5 % (40-80); RBC 3.98 10x6/uL (4.20-6.10); RDW 15.3 % (11.5-14.5); WBC 7.4 10x3/uL (4.8-10.8)
[2020-08-30 06:53] VITALS: Ht 182.9 cm; Wt 70.3 kg
[2020-08-30 06:56] LABS: PLATELET COUNT 207 10x3/uL (130-400)
[2020-08-30 07:04] LABS: INR 1.08 (0.85-1.17)
[2020-08-30] MEDS ORDERED: PROPAFENONE HC225 MG PO (07:09)
[2020-08-30] MEDS ORDERED: VYTORIN PO (07:10)
[2020-08-30] MEDS ORDERED: ULTRAM50 MG PO ×2 (07:10→11:17)
[2020-08-30] MEDS ORDERED: VOLTAREN100 GM TOPICAL (07:11)
[2020-08-30] MEDS ORDERED: FERRIC CITRATE210 MG PO (07:12)
[2020-08-30] MEDS ORDERED: PEPCID40 MG PO (07:13)
[2020-08-30] MEDS ORDERED: ZANAFLEX4 MG PO (07:13)
[2020-08-30] MEDS ORDERED: VIBRAMYCIN 100100 MG PO (07:14)
== END 2020-08-30 12:15 | disposition home or self-care (01) ==
LOC: D.OPS 05:46
PROVIDERS: ATTEND Surgery
DX: N18.6 End stage renal disease (principal); Z99.2 Dependence on renal dialysis; I10 Essential (primary) hypertension; I51.9 Heart disease, unspecified

== ENCOUNTER 2020-10-30 02:27 | Emergency (ER) | payer MEDICARE ==
[~2020-10-30] VITALS: Ht 182.9 cm; Wt 70.0 kg
[~2020-10-30 02:27] MED LIST changes: +PEPCID40 MG PO; +VIBRAMYCIN 100100 MG PO; +VOLTAREN100 GM TOPICAL
[2020-10-30 02:36] VITALS: Ht 182.9 cm; Wt 70.0 kg
[2020-10-30] MEDS ORDERED: FERRIC CITRATE210 MG PO ×2 (03:12→23:03)
[2020-10-30] MEDS ORDERED: ACETAMINOPHEN500 M1 PO (03:14)
[2020-10-30] MEDS ORDERED: CEPHALEXIN500 M1 PO (03:16)
[2020-10-30 03:52] VITALS: BP 130/80
[2020-10-30] MEDS ORDERED: CHRONULAC30 ML (22:06)
[2020-10-30] MEDS ORDERED: DOK100 MG (22:07)
[2020-10-30] MEDS ORDERED: CICLOPIROX CREA15 GM (22:07)
[2020-10-30] MEDS ORDERED: ULTRAM50 MG (22:08)
[2020-10-30] MEDS ORDERED: MIRALAX17 GM PO (23:05)
[2020-10-30] MEDS ORDERED: RENA-VITE TABL0.8 MG PO (23:08)
[2020-10-30] MEDS ORDERED: PROPAFENONE HC225 MG PO (23:09)
[2020-10-30] MEDS ORDERED: PLAVIX75 MG PO (23:09)
[2020-10-30] MEDS ORDERED: PROPECIA1 MG PO (23:10)
[2020-10-30] MEDS ORDERED: CICLOPIROX CREA15 GM TOPICAL (23:14)
== END 2020-10-30 03:40 | disposition home or self-care (01) ==
LOC: D.ER 02:27
DX: L03.115 Cellulitis of right lower limb (principal); I10 Essential (primary) hypertension; Z95.0 Presence of cardiac pacemaker; K21.9 Gastro-esophageal reflux disease without esophagitis; N40.0 Benign prostatic hyperplasia without lower urinary tract symptoms

== ENCOUNTER 2020-10-30 13:37 | Inpatient (IN) | payer MEDICARE ==
[2020-10-30] VITALS (23 sets, daily range): BP systolic 61–141; BP diastolic 35–87; BMI 23.1
[~2020-10-30] VITALS: Ht 182.9 cm; Wt 77.1 kg
[~2020-10-30 13:37] MED LIST changes: +ACETAMINOPHEN500 M1 PO; +CEPHALEXIN500 M1 PO
[2020-10-30 14:37] LABS: BASOPHILS 0.1 % (0-2); EOSINOPHILS 0.2 % (0-7); HEMOGLOBIN 10.5 g/dL (13.5-17.5); IMMATURE GRANULOCYTES 0.6 % (0-5); LYMPHOCYTE ABS# 1.18 10x3/uL (1.32-3.57); LYMPHOCYTES 14.1 % (15-50); MCH 31.6 pg (26.0-34.0); MCHC 31.8 g/dL (31.0-37.0); MCV 99.4 fL (80.0-100.0); MEAN PLATELET VOLUME 10.4 fL (7.4-10.4); MONOCYTES 8.1 % (2-11); NEUTROPHIL ABS# 6.42 10x3/uL (1.78-5.38); NEUTROPHILS 76.9 % (40-80); RBC 3.32 10x6/uL (4.20-6.10); WBC 8.4 10x3/uL (4.8-10.8)
[2020-10-30 14:39] LABS: INR 1.37 (0.85-1.17); PROTIME 15.7 SECONDS (11.6-15.0)
[2020-10-30 14:40] LABS: CALC OSMOLALITY 303 mosm/kg (275-300); CALCIUM 8.3 mg/dL (8.5-10.1); CARBON DIOXIDE 29.3 mmol/L (21.0-32.0); CHLORIDE - SERUM 100 mmol/L (98-107); CREATININE - SERUM 10.4 mg/dL (0.6-1.3); GLUCOSE 145 mg/dL (74-106); POTASSIUM - SERUM 3.7 mmol/L (3.5-5.1); SODIUM 142 mmol/L (136-145); UREA NITROGEN 63 mg/dL (7-18); eGFR NON AFRICAN AMERICAN 5 mL/min (90-120)
[2020-10-30 14:42] LABS: PLATELET COUNT 154 10x3/uL (130-400)
[2020-10-30 15:02] LABS: ALBUMIN 1.7 g/dL (3.4-5.0); ALKALINE PHOSPHATASE 85 U/L (30-120); ALT (SGPT) 20 U/L (10-68); BILIRUBIN - TOTAL 0.43 mg/dL (0.2-1.3); CREATINE KINASE 124 UL (21-232); PROTEIN - SERUM 5.1 g/dL (6.4-8.2); TROPONIN-I 0.053 ng/mL (0.000-0.060)
[2020-10-30 16:51] LABS: MAGNESIUM - SERUM 2.4 mg/dL (1.8-2.4)
--- NOTE | 2020-10-30 21:54 | NUR ---
PT ARRIVED TO ROOM FROM ER. CONFUSED, A&O X2. CL IN REACH.
[2020-10-30] MEDS ORDERED: CHRONULAC30 ML (22:06)
[2020-10-30] MEDS ORDERED: DOK100 MG PO (22:07)
[2020-10-30] MEDS ORDERED: CICLOPIROX CREA15 GM (22:07)
[2020-10-30] MEDS ORDERED: ULTRAM50 MG (22:08)
[2020-10-30] MEDS ORDERED: FERRIC CITRATE210 MG PO (23:03)
[2020-10-30] MEDS ORDERED: MIRALAX17 GM PO (23:05)
[2020-10-30] MEDS ORDERED: RENA-VITE TABL0.8 MG PO (23:08)
[2020-10-30] MEDS ORDERED: PROPAFENONE HC225 MG PO (23:09)
[2020-10-30] MEDS ORDERED: PLAVIX75 MG PO (23:09)
[2020-10-30] MEDS ORDERED: PROPECIA1 MG PO (23:10)
[2020-10-30] MEDS ORDERED: CICLOPIROX CREA15 GM TOPICAL (23:14)
[2020-10-31] VITALS: BP 117/61
[2020-10-31 02:41] LABS: BASOPHILS 0.2 % (0-2); EOSINOPHILS 0.9 % (0-7); HEMATOCRIT 36.4 % (42.0-54.0); HEMOGLOBIN 11.7 g/dL (13.5-17.5); IMMATURE GRANULOCYTES 0.3 % (0-5); LYMPHOCYTE ABS# 1.91 10x3/uL (1.32-3.57); LYMPHOCYTES 18.1 % (15-50); MCH 31.6 pg (26.0-34.0); MCHC 32.1 g/dL (31.0-37.0); MCV 98.4 fL (80.0-100.0); MEAN PLATELET VOLUME 10.5 fL (7.4-10.4); MONOCYTES 9.2 % (2-11); NEUTROPHIL ABS# 7.51 10x3/uL (1.78-5.38); NEUTROPHILS 71.3 % (40-80); PLATELET COUNT 175 10x3/uL (130-400); WBC 10.5 10x3/uL (4.8-10.8)
[2020-10-31 03:11] LABS: ALKALINE PHOSPHATASE 102 U/L (30-120); BILIRUBIN - TOTAL 0.48 mg/dL (0.2-1.3); CALC OSMOLALITY 303 mosm/kg (275-300); CALCIUM 8.8 mg/dL (8.5-10.1); CARBON DIOXIDE 28.9 mmol/L (21.0-32.0); CHLORIDE - SERUM 99 mmol/L (98-107); CKMB 1.1 U/L (0.0-3.6); CREATINE KINASE 107 UL (21-232); CREATININE - SERUM 10.7 mg/dL (0.6-1.3); GLUCOSE 116 mg/dL (74-106); MAGNESIUM - SERUM 2.4 mg/dL (1.8-2.4); POTASSIUM - SERUM 4.2 mmol/L (3.5-5.1); PROTEIN - SERUM 6.1 g/dL (6.4-8.2); SODIUM 141 mmol/L (136-145); UREA NITROGEN 73 mg/dL (7-18); VANCOMYCIN - RANDOM 10.8 ug/mL (10.0-20.0); eGFR NON AFRICAN AMERICAN 5 mL/min (90-120)
[2020-10-31 03:13] LABS: ALT (SGPT) 27 U/L (10-68)
[2020-10-31 03:14] LABS: TROPONIN-I 0.079 ng/mL (0.000-0.060)
--- NOTE | 2020-10-31 07:13 | NUR ---
RECEIVE SHIFT REPORT. RESTING IN BED WITH TV ON. DENIES ANY NEEDS AT THIS TIME. FORGETFUL AT TIMES. WILL CONTINUE POC AND SAFETY PRECAUTIONS. CALL LIGHT IN REACH.
[2020-10-31 08:23] VITALS: BP 118/63
[2020-10-31 09:15] LABS: CKMB 0.9 U/L (0.0-3.6); CREATINE KINASE 87 UL (21-232); TROPONIN-I 0.045 ng/mL (0.000-0.060)
[2020-10-31 12:22] VITALS: BP 93/54
[2020-10-31 13:01] VITALS: Ht 182.9 cm; Wt 77.1 kg
[2020-10-31 16:04] VITALS: BP 124/68
[2020-10-31 20:56] VITALS: BP 101/55
--- NOTE | 2020-11-01 01:32 | NUR ---
RENAL PAGED CONCERNING PT HEART RATE.
[2020-11-01 01:48] VITALS: BP 94/51
--- NOTE | 2020-11-01 01:50 | NUR ---
PAGED RENAL X2.
--- NOTE | 2020-11-01 03:38 | NUR ---
I have reviewed this patient and I concur with the Shift Assessment completed by the Licensed Practical Nurse today this shift.
--- NOTE | 2020-11-01 04:02 | NUR ---
DR. BIRD CALLED WITH NEW ORDERS ON PT SEE AUG. DR. AMBROSE TO BE NOTIFIED OF PT'S MEDICATION. WILL CONTINUE TO MONITOR.
[2020-11-01 05:23] LABS: BASOPHILS 0.3 % (0-2); EOSINOPHILS 3.3 % (0-7); HEMATOCRIT 32.6 % (42.0-54.0); HEMOGLOBIN 10.5 g/dL (13.5-17.5); IMMATURE GRANULOCYTES 1.3 % (0-5); LYMPHOCYTE ABS# 1.72 10x3/uL (1.32-3.57); LYMPHOCYTES 21.6 % (15-50); MCH 31.3 pg (26.0-34.0); MCHC 32.2 g/dL (31.0-37.0); MEAN PLATELET VOLUME 10.7 fL (7.4-10.4); MONOCYTES 13.4 % (2-11); NEUTROPHIL ABS# 4.81 10x3/uL (1.78-5.38); NEUTROPHILS 60.1 % (40-80); PLATELET COUNT 176 10x3/uL (130-400); RBC 3.36 10x6/uL (4.20-6.10)
[2020-11-01 05:26] VITALS: BP 114/66
[2020-11-01 05:52] LABS: ALBUMIN 1.5 g/dL (3.4-5.0); ANION GAP 15.2 mmol/L (8-16); BILIRUBIN - TOTAL 0.36 mg/dL (0.2-1.3); CALCIUM 7.9 mg/dL (8.5-10.1); CARBON DIOXIDE 27.4 mmol/L (21.0-32.0); CREATININE - SERUM 10.1 mg/dL (0.6-1.3); MAGNESIUM - SERUM 2.3 mg/dL (1.8-2.4); POTASSIUM - SERUM 3.6 mmol/L (3.5-5.1); PROTEIN - SERUM 5.3 g/dL (6.4-8.2); VANCOMYCIN - RANDOM 18.5 ug/mL (10.0-20.0)
--- NOTE | 2020-11-01 07:10 | NUR ---
RECEIVE SHIFT REPORT. RESTING IN BED WITH TV ON. WANTS TO CALL DAUGHTER. TRIED TO CALL CEM (DAUGHTER) NO ANSWER. DENIES ANY OTHER NEEDS AT THIS TIME. PD FLUID IN WARMER. WILL CONTINUE POC AND SAFETY PRECAUTIONS.
[2020-11-01 07:34] VITALS: BP 96/68
[2020-11-01 11:23] VITALS: BP 104/67
[2020-11-01 16:48] VITALS: BP 118/79
[2020-11-01 20:00] VITALS: BP 134/75
[2020-11-02] VITALS: BP 112/73
--- NOTE | 2020-11-02 04:45 | NUR ---
I have reviewed this patient and I concur with the Shift Assessment completed by the Licensed Practical Nurse today this shift.
[2020-11-02 07:42] LABS: BASOPHILS 0.3 % (0-2); EOSINOPHILS 3.7 % (0-7); HEMATOCRIT 33.3 % (42.0-54.0); HEMOGLOBIN 10.7 g/dL (13.5-17.5); IMMATURE GRANULOCYTES 2.1 % (0-5); LYMPHOCYTE ABS# 1.38 10x3/uL (1.32-3.57); MCH 30.9 pg (26.0-34.0); MCHC 32.1 g/dL (31.0-37.0); MCV 96.2 fL (80.0-100.0); MEAN PLATELET VOLUME 10.4 fL (7.4-10.4); MONOCYTES 14.8 % (2-11); NEUTROPHIL ABS# 3.81 10x3/uL (1.78-5.38); NEUTROPHILS 58.1 % (40-80); PLATELET COUNT 199 10x3/uL (130-400); RBC 3.46 10x6/uL (4.20-6.10); RDW 13.9 % (11.5-14.5); WBC 6.6 10x3/uL (4.8-10.8)
[2020-11-02 08:04] LABS: ALBUMIN 1.6 g/dL (3.4-5.0); ANION GAP 16.1 mmol/L (8-16); BILIRUBIN - TOTAL 0.34 mg/dL (0.2-1.3); CALCIUM 8.4 mg/dL (8.5-10.1); CARBON DIOXIDE 27.6 mmol/L (21.0-32.0); CREATININE - SERUM 9.8 mg/dL (0.6-1.3); MAGNESIUM - SERUM 2.2 mg/dL (1.8-2.4); POTASSIUM - SERUM 3.7 mmol/L (3.5-5.1); PROTEIN - SERUM 5.7 g/dL (6.4-8.2); VANCOMYCIN - RANDOM 16.2 ug/mL (10.0-20.0)
[2020-11-02 08:17] VITALS: BP 131/81
[2020-11-02 12:13] VITALS: BP 122/52
--- NOTE | 2020-11-02 12:14 | CN ---
PATIENT NAME:STEVE RADFORD MEDICAL RECORD: [id number] : 31 LOCATION:[facility].2128 ADMIT DATE: 10/30/20 ACCOUNT: [id number] CONSULTING PHYSICIAN: MICHI CALDERON MD REFERRING PHYSICIAN: SONIA PARSON MD DATE OF CONSULTATION: 11/01/2020 HISTORY OF PRESENT ILLNESS: An 84-year-old gentleman with history of coronary artery disease, status post intervention, previous subsequent stenting, history of atrial fibrillation, typically well controlled, admitted with cellulitis and mental status changes. Reports erythematous changes to the right lower extremity as well as edema, warmness, subjective fever ongoing for about the past 3-4 days, also somewhat somnolent. This morning he is alert and oriented. Main complaint is that of a foot pain. He did have an episode of atrial fibrillation. We are asked to see him concerning his cardiovascular status. PAST MEDICAL HISTORY: Includes; 1. History of coronary artery disease as described above. 2. Chronic renal insufficiency, on dialysis therapy. 3. Orthostatic hypotension, maintained on midodrine. 4. Dyslipidemia. 5. Atrial fibrillation. ALLERGIES: DAYPRO. MEDICATIONS: Include midodrine 5 mg p.o. every morning, Zanaflex 4 mg b.i.d., Plavix 75 every day, fish oil 1 tab b.i.d., propafenone 225 mg t.i.d., aspirin 81 every day, Bumex 2 mg every day, lactulose, Propecia 4 mg at bedtime. SOCIAL HISTORY: Nonsmoker, nondrinker. Typically, he is able to take care of all his ADLs. REVIEW OF SYSTEMS: The patient reports easy bruising but reports no swollen glands. The patient reports no fever, no night sweats, no significant weight gain, no significant weight loss. No significant exercise tolerance. The patient reports no dry eyes, no irritation, no vision change. Patient reports no difficulty hearing and no ear pain. Patient reports no frequent nose bleeds or nose and sinus problems. Patient reports on arm pain on exertion. No shortness of breath while lying down. No history of heart murmur. Patient reports no cough, no wheezing or coughing up blood. Patient reports no abdominal pain, no vomiting. Normal appetite. No diarrhea and not vomiting blood. No nausea and no constipation. Patient reports no incontinence. No difficulty urinating. No hematuria. No increased frequency. Patient reports no muscle aches. No weakness, no arthralgias, no back pain. No swelling of the extremities. Patient reports no abnormal mole, no jaundice, no rashes. Reports no loss of consciousness. No weakness and no numbness. No seizures, dizziness, or headaches. The patient reports no depression, no sleep disturbance, feeling safe in a relationship and no alcohol abuse. Patient reports on fatigue. Reports no runny nose or sinus pressure. No itching, no hives, and no frequent sneezing. PHYSICAL EXAMINATION: GENERAL: Well-developed, well-nourished, no acute distress. VITAL SIGNS: Blood pressure 104/67, pulse 97 and regular. HEENT: Normocephalic, atraumatic. CONSULT REPORT [id number] STEVE RADFORD NECK: No JVD or bruit. HEART: Regular, II/ systolic ejection murmur. LUNGS: Good air excursion. ABDOMEN: Soft, nontender. EXTREMITIES: Pulses 2+. There is erythema as well as induration about fdc up the anterior griggs on the right. Warm to touch. This is actually improved from demarcation alec yesterday. IMPRESSION AND PLAN: Cellulitis with atrial fibrillation, suspect secondary to underlying catecholamine drive, increased stress, infection, etc. He is currently back in sinus rhythm. With short episode, we would not increase antiarrhythmic. Additionally, we would not upgrade to DOAC at this point as well. We will check echocardiographic study. Further recommendations based on the above. TRANSINT:[id number] Voice Confirmation ID: [id number] DOCUMENT ID: [id number] MICHI CLADERON MD at 1214 CC: [id number] DICTATION DATE: 11/01/20 1323 HOG SCRAPER: 11/01/[address] [facility] [address] [place] [address]
--- NOTE | 2020-11-02 12:15 | EC ---
PATIENT:STEVE RADFORD DATE OF SERVICE: 10/30/20 SEX: M MEDICAL RECORD: [id number] DATE OF : 31 LOCATION:D.M2 D.212 AGE OF PATIENT: 84 ADMISSION DATE: 10/30/20 REFERRING PHYSICIAN: INTERPRETING PHYSICIAN: MICHI CALDERON MD ECHOCARDIOGRAM REPORT ECHO CHARGES 4 ECHO COMPLETE Date: 11/01/20 CLINICAL DIAGNOSIS: CMP ECHOCARDIOGRAPHIC MEASUREMENTS (adult normal given) AC root (d.<3.7cm) 3.7 cm LV Septum d (<1.2 cm> 0.7 cm Valve Excursion 1.2 cm LV Septum (systole) 0.9 cm Left Atria (s.<4.0cm> 4.9 cm LVPW d(<1.2cm) 0.8 cm RV (d.<2.3cm) 2.7 cm LVPW (sytole) 1.0 cm LV diastole(<5.6CM) 4.9 cm MV E-F(>70mm/sec) cm LV systole 4.0 cm LVOT Diameter 1.9 cm MV exc.(>10mm) 1.4 cm Est.ejection fraction (50-75%) % DOPPLER: LVIT cm/sec A 64 cm/sec E cm/sec LA cm/sec RVSP 17 mmHg LVOT 92 cm/sec AOP1/2T m/s Asc. Ao 131 cm/sec RVOT 53 cm/sec RA cm/sec PA 73 cm/sec AV Gradient Peak 6.9 mmHg AV Mean 3.8 mmHg AV Area 2.7 cm MV Gradient Peak 1.9 mmHg MV Mean 1.5 mmHg MV Area cm COMMENTS: Supervisor Pipe Joints: 5 [facility] Aoc Operations Intelligence Chief: 3 Dr. Pulliam TAPE# Pericardial Effusion N DATE OF SERVICE: Adequate 2D, color flow imaging, spectral Doppler, and M-Mode. No LVH. LV internal dimensions are normal. Difficult to fully assess focal wall motion due to underlying supraventricular arrhythmia and variable R-R intervals. Overall function appears reduced at 30% to 35%. Aortic valve sclerosis without stenosis by Doppler interrogation. Left atrium dilated at 4.9 cm. Mitral valve shows no prolapse. Trace MR. Right-sided chamber grossly normal. Mild TR. ECHOCARDIOGRAM REPORT [id number] STEVE RADFORD TRANSINT:[id number] Voice Confirmation ID: [id number] DOCUMENT ID: [id number] MICHI CALDERON MD at 1215 CC: [id number] DICTATION DATE: 11/01/20 1506 VETERINARY DENTIST: 11/01/20 2257 ADM IN [place] [id number] [place] [id number]
--- NOTE | 2020-11-02 14:12 | NUR ---
Nutrition Follow-up: Eating well; ate 100% of breakfast. PD per renal. Diet: Renal, Heart Healthy No new wt; last wt: 170# (10/31) Labs noted: K+ 3.7, Ca 8.4, Alb 1.6 Meds noted: Florajen, Senokot, Protonix, electrolyte protocol -Offer Nepro with meals. -Need new wt. -RD will follow up within 5-7 days.
--- NOTE | 2020-11-02 14:14 | NUR ---
WHEN DOING 1200 DIALYSIS PATIENT NOT DRAINING WELL. HAD HIM ROLL AND SIT UP AND LAY BACK. CHANGING POSITIONS HELPED SLIGHTLY BUT WAS ONLY ABOUT TO DRAIN 500ML.
[2020-11-02 16:32] VITALS: BP 134/76
--- NOTE | 2020-11-02 21:27 | NUR ---
PD EXCHANGE COMPLETE.
[2020-11-02 23:28] VITALS: BP 107/46
--- NOTE | 2020-11-03 01:39 | NUR ---
I have reviewed this patient and I concur with the Shift Assessment completed by the Licensed Practical Nurse today this shift.
[2020-11-03 04:00] VITALS: BP 120/53
[2020-11-03 07:39] LABS: BASOPHILS 0.3 % (0-2); EOSINOPHILS 3.5 % (0-7); HEMATOCRIT 33.3 % (42.0-54.0); HEMOGLOBIN 10.7 g/dL (13.5-17.5); IMMATURE GRANULOCYTES 2.5 % (0-5); LYMPHOCYTE ABS# 1.48 10x3/uL (1.32-3.57); LYMPHOCYTES 21.7 % (15-50); MCHC 32.1 g/dL (31.0-37.0); MCV 96.5 fL (80.0-100.0); MEAN PLATELET VOLUME 10.2 fL (7.4-10.4); MONOCYTES 18.2 % (2-11); NEUTROPHIL ABS# 3.67 10x3/uL (1.78-5.38); NEUTROPHILS 53.8 % (40-80); PLATELET COUNT 213 10x3/uL (130-400); RBC 3.45 10x6/uL (4.20-6.10); WBC 6.8 10x3/uL (4.8-10.8)
[2020-11-03 07:53] LABS: ALBUMIN 1.6 g/dL (3.4-5.0); ANION GAP 14.6 mmol/L (8-16); BILIRUBIN - TOTAL 0.35 mg/dL (0.2-1.3); CALCIUM 7.9 mg/dL (8.5-10.1); CARBON DIOXIDE 28.1 mmol/L (21.0-32.0); CREATININE - SERUM 9.2 mg/dL (0.6-1.3); MAGNESIUM - SERUM 2.1 mg/dL (1.8-2.4); POTASSIUM - SERUM 3.7 mmol/L (3.5-5.1); PROTEIN - SERUM 4.8 g/dL (6.4-8.2); VANCOMYCIN - RANDOM 12.7 ug/mL (10.0-20.0)
[2020-11-03 08:22] VITALS: BP 143/75
--- NOTE | 2020-11-03 10:38 | NUR ---
PATIENT AAOX4, RESP EVEN AND NON LABORED, NO S/S OF DISTRESS, MEDICATIONS ADMOSNITERED WITH NO COMPLICATIONS, PD SUCCESSFULLY INFUSED AND DRAINED WITH NO COMPLICATIONS, NO FURTHER NEEDS AT THIS TIME, CLIR, BLP
[2020-11-03 12:37] LABS: BILIRUBIN NEGATIVE (NEGATIVE); KETONE NEGATIVE (NEGATIVE); NITRITE NEGATIVE (NEGATIVE); UROBILINOGEN NORMAL mg/dL (< 2)
[2020-11-03 12:38] LABS: BACTERIA FEW HPF (NONE SEEN); SQUAMOUS EPITHELIAL OCC HPF (0-4); WHITE CELLS - URINE RARE HPF (0-1)
[2020-11-03 13:26] VITALS: BP 142/89
--- NOTE | 2020-11-03 13:58 | NUR ---
I have reviewed this patient and I concur with the Shift Assessment completed by the Licensed Practical Nurse today this shift.
[2020-11-03 16:49] VITALS: BP 127/70
[2020-11-03 21:57] VITALS: BP 135/69
[2020-11-04 01:05] VITALS: BP 142/74
[2020-11-04 06:04] VITALS: BP 147/88
[2020-11-04 08:00] VITALS: BP 117/66
[2020-11-04 08:29] LABS: BASOPHILS 0.3 % (0-2); EOSINOPHILS 2.7 % (0-7); HEMATOCRIT 31.3 % (42.0-54.0); LYMPHOCYTE ABS# 1.43 10x3/uL (1.32-3.57); LYMPHOCYTES 21.2 % (15-50); MCHC 31.9 g/dL (31.0-37.0); MCV 96.9 fL (80.0-100.0); MEAN PLATELET VOLUME 10.1 fL (7.4-10.4); MONOCYTES 18.6 % (2-11); NEUTROPHILS 53.2 % (40-80); PLATELET COUNT 214 10x3/uL (130-400); RBC 3.23 10x6/uL (4.20-6.10); RDW 13.9 % (11.5-14.5); WBC 6.8 10x3/uL (4.8-10.8)
[2020-11-04 08:54] LABS: ALBUMIN 1.5 g/dL (3.4-5.0); ANION GAP 13.7 mmol/L (8-16); BILIRUBIN - TOTAL 0.33 mg/dL (0.2-1.3); CALCIUM 8.1 mg/dL (8.5-10.1); CARBON DIOXIDE 28.9 mmol/L (21.0-32.0); CREATININE - SERUM 9.1 mg/dL (0.6-1.3); MAGNESIUM - SERUM 2.1 mg/dL (1.8-2.4); POTASSIUM - SERUM 3.6 mmol/L (3.5-5.1); PROTEIN - SERUM 4.7 g/dL (6.4-8.2); VANCOMYCIN - RANDOM 26.3 ug/mL (10.0-20.0)
--- NOTE | 2020-11-04 11:29 | NUR ---
PATIENT AAOX4 LYING SEMI FOWLERS IN BED, RESP EVEN AND NON LABORED, NO S/S OF DISTRESS, MEDICATIONS ADMINISTERED WITH NO COMPLICATIONS, PD DRAINED AND FILLED WITH NO COMPLICATIONS, NO FURTHER NEEDS AT THIS TIME, JAMEY AUGUST
[2020-11-04] MEDS ORDERED: ZETIA10 MG PO (11:32)
[2020-11-04] MEDS ORDERED: ZOCOR20 MG PO (11:33)
[2020-11-04] MEDS ORDERED: GENTAMICIN SULFATE TOPICAL (11:36)
[2020-11-04] MEDS ORDERED: VIBRAMYCIN 100100 MG PO (11:36)
--- NOTE | 2020-11-04 13:56 | NUR ---
PATIENT DISCHARGED HOME WITH DAUGHTER VIA WHEELCHAIR, TELEMERTY REMOVED AND RETURNED TO ICU MONITORS
--- NOTE | 2020-11-05 17:51 | MORECARE ---
CASE MANAGEMENT DISCHARGE SUMMARY PATIENT: STEVE RADFORD UNIT: [id number] ADM DATE: 10/30/20 AGE: 84 : 33 SEX: M ROOM/BED: D.2128 AUTHOR: JESSICADOC PHYSICIAN: REFERRING PHYSICIAN: SONIA PARSON MD DATE OF SERVICE: 11/05/20 Case Management Discharge Planning Summary DCP REVIEW SUMMARY ANTICIPATED D/C DATE: EXPECTED LOS : CASE STATUS: DCP Initiated INITIAL REVIEW: 10/30/2020 INITIAL REVIEWER: oSila Box FINAL DISCHARGE DISPOSITION: 84 : Discharged/Trans to home under care of organized home health service organization with a planned FINAL REVIEWER: Soila Box FINAL REVIEW DATE: DCP Focus Questions & Answers DCP Screen QUESTION: ANSWER High Risk Factors: : Hosp related to CHF, COPD, DM, End Stage Ds, CVA, CA DCP Evaluation QUESTION: ANSWER Patient's ability to cope with chronic illness : d. No chronic illness Would patient like to participate in any Care Coordination programs (if applicable): : Not applicable Mental health screen: : No mental health history DCP Re-evaluation QUESTION: ANSWER Would patient like to participate in any Care Coordination programs (if applicable): : Not applicable PATIENT: STEVE RADFORD ENCOUNTER: [id number] MEDICAL RECORD#: [id number] ADMISSION DATE: 10/30/2020 DISCHARGE DATE: 11/04/2020 ATTENDING MD: EB PARSON : AGE: 84 MARITAL STATUS: M DC PLAN ID: [id number] FACILITY: [facility] PRINTED ON: 11/05/20 17:50 CT All edits/amendments must be made on the electronic document DICTATION DATE: 11/05/201749 RETORT PRESS OPERATOR: DM 11/05/201749 RPT#: [id number] DC DATE:11/04/20 STATUS: DIS IN [facility] [address] [place] [address] END OF REPORT
--- NOTE | 2020-11-05 18:03 | MORECARE ---
CASE MANAGEMENT DISCHARGE SUMMARY PATIENT: STEVE RADFORD UNIT: [id number] ADM DATE: 10/30/20 AGE: 84 : 33 SEX: M ROOM/BED: D.6167 AUTHOR: JESSICADOC PHYSICIAN: REFERRING PHYSICIAN: SONIA PARSON MD DATE OF SERVICE: 11/05/20 Case Management Discharge Planning Summary COMMENTS ENTERED DATE: 11/05/20 17:53 CT COMMENT TYPE: Discharge Planning REVIEWER: Soila Box late entry 11/04/20 CM spoke with patient and his daughter at bedside to complete initial dc planning assessment. CM educated patient on the CM role and verbal consent given by patient to complete assessment. Patient lives at home with family. Patient is partially independent. At discharge patient plans to return home and feels this is a safe discharge. CM discussed availability of home health, rehab services, and medical equipment. Daughter states that they would like [facility] and states they have had [facility] in past. TERESA signed for [facility] and D/C IMM. Patient will have family to transport home. Patient denied known discharge needs at this time. CM will continue to follow and will assist as needed with dc plans/needs. CM contacted [facility] and faxed referral. [facility] will admit on Saturday. DCP REVIEW SUMMARY ANTICIPATED D/C DATE: EXPECTED LOS : CASE STATUS: DCP Initiated INITIAL REVIEW: 10/30/2020 INITIAL REVIEWER: Soila Box FINAL DISCHARGE DISPOSITION: 84 : Discharged/Trans to home under care of organized home health service organization with a planned FINAL REVIEWER: Soila Box FINAL REVIEW DATE: DCP Focus Questions & Answers DCP Screen QUESTION: ANSWER High Risk Factors: : Hosp related to CHF, COPD, DM, End Stage Ds, CVA, CA DCP Evaluation QUESTION: ANSWER Patient's ability to cope with chronic illness : a. Adequate (0-3 ED visits in 6 mos., adequate financial resources, attends scheduled appts.) Patient gives permission to discuss discharge plans with: (name, relationship and number) : CEM JAMES DTR [phone] Patient's current cognitive status: : *Oriented to person, place, situation, time and present Family / Caregiver's ability to cope with chronic illness: : a. Adequate (ability to meet patient's medical needs, ensures patient attends medical appts.) Patient and/or caregiver agree upon recommended discharge plan? : Yes Physical Status: : Partial care dependence Family / Caregiver's ability to cope with chronic illness: : a. Adequate (ability to meet patient's medical needs, ensures patient attends medical appts.) Functional screen assessment: : Unable to manage ADLs without immediate ongoing assistance Does the patient have the ability to pay for or attain post discharge needs / services? : Yes Partial Dependence, assistance required for: : Ambulation / Mobility Living Arrangements: : Home with Extended Family Is there a likelihood that the patient will require additional services to return to the preadmission environment? : Yes Baseline cognitive status: : *Oriented to person, place, situation, time and present Patient with capacity for self-care or can be cared for in same environment as prior to hospitalization? : Yes Results of this evaluation have been discussed with: : Children Physical environment modification needed / anticipated for discharge: : Yes Medication Management: : Patient states they do have transportation to medicinal plant picker medications Planned post hospital services available for patient? : Yes Does Patient have transportation to get home and to follow-up medical appointments when discharged from the hospital? : Yes Planned post hospital services covered by insurance plan? : Yes Would patient like to participate in any Care Coordination programs (if applicable): : Not applicable Does the patient have electricity at home? : Yes Does the patient have running water in their house? : Yes Equipment in use: : Bedside Commode Equipment in use: : Walker - Rolling Other Equipment comments: : PD SUPPLIES AND CYCLER Mental health screen: : No mental health history Psychosocial status: : Independent adult (65+) DCP Re-evaluation QUESTION: ANSWER Would patient like to participate in any Care Coordination programs (if applicable): : Not applicable PATIENT: STEVE RADFORD ENCOUNTER: [id number] MEDICAL RECORD#: [id number] ADMISSION DATE: 10/30/2020 DISCHARGE DATE: 11/04/2020 ATTENDING MD: EB PARSON : AGE: 84 MARITAL STATUS: M DC PLAN ID: [id number] FACILITY: [facility] PRINTED ON: 11/05/20 18:02 CT All edits/amendments must be made on the electronic document DICTATION DATE: 11/05/201801 FLEET DISPATCH MANAGER: SALVATORE 11/05/201801 RPT#: [id number] DC DATE:11/04/20 STATUS: DIS IN [facility] [address] [place] [address] END OF REPORT
--- NOTE | 2020-11-07 13:39 | MORECARE ---
CASE MANAGEMENT DISCHARGE SUMMARY PATIENT: STEVE RADFORD UNIT: [id number] ADM DATE: 10/30/20 AGE: 85 : 33 SEX: M ROOM/BED: D.0738 AUTHOR: JESSICADOC PHYSICIAN: REFERRING PHYSICIAN: SONIA PARSON MD DATE OF SERVICE: 11/07/20 Case Management Discharge Planning Summary COMMENTS ENTERED DATE: 11/05/20 17:53 CT COMMENT TYPE: Discharge Planning REVIEWER: Soila Box late entry 11/04/20 CM spoke with patient and his daughter at bedside to complete initial dc planning assessment. CM educated patient on the CM role and verbal consent given by patient to complete assessment. Patient lives at home with family. Patient is partially independent. At discharge patient plans to return home and feels this is a safe discharge. CM discussed availability of home health, rehab services, and medical equipment. Daughter states that they would like [facility] and states they have had [facility] in past. TERESA signed for [facility] and D/[facility]. Patient will have family to transport home. Patient denied known discharge needs at this time. CM will continue to follow and will assist as needed with dc plans/needs. CM contacted [facility] and faxed referral. [facility] will admit on Saturday. DCP REVIEW SUMMARY ANTICIPATED D/C DATE: EXPECTED LOS : CASE STATUS: DCP Initiated INITIAL REVIEW: 10/30/2020 INITIAL REVIEWER: Soila Box FINAL DISCHARGE DISPOSITION: 84 : Discharged/Trans to home under care of organized home health service organization with a planned FINAL REVIEWER: Soila Box FINAL REVIEW DATE: DCP Focus Questions & Answers DCP Screen QUESTION: ANSWER High Risk Factors: : Hosp related to CHF, COPD, DM, End Stage Ds, CVA, CA DCP Evaluation QUESTION: ANSWER Patient and/or caregiver agree upon recommended discharge plan? : Yes Family / Caregiver's ability to cope with chronic illness: : a. Adequate (ability to meet patient's medical needs, ensures patient attends medical appts.) Patient's current cognitive status: : *Oriented to person, place, situation, time and present Patient gives permission to discuss discharge plans with: (name, relationship and number) : CEM ERIKA DTR [phone] Patient's ability to cope with chronic illness : a. Adequate (0-3 ED visits in 6 mos., adequate financial resources, attends scheduled appts.) Does the patient have the ability to pay for or attain post discharge needs / services? : Yes Functional screen assessment: : Unable to manage ADLs without immediate ongoing assistance Family / Caregiver's ability to cope with chronic illness: : a. Adequate (ability to meet patient's medical needs, ensures patient attends medical appts.) Physical Status: : Partial care dependence Is there a likelihood that the patient will require additional services to return to the preadmission environment? : Yes Living Arrangements: : Home with Extended Family Partial Dependence, assistance required for: : Ambulation / Mobility Results of this evaluation have been discussed with: : Children Patient with capacity for self-care or can be cared for in same environment as prior to hospitalization? : Yes Baseline cognitive status: : *Oriented to person, place, situation, time and present Physical environment modification needed / anticipated for discharge: : Yes Medication Management: : Patient states they do have transportation to chicken picker medications Planned post hospital services available for patient? : Yes Planned post hospital services covered by insurance plan? : Yes Does Patient have transportation to get home and to follow-up medical appointments when discharged from the hospital? : Yes Would patient like to participate in any Care Coordination programs (if applicable): : Not applicable Does the patient have electricity at home? : Yes Does the patient have running water in their house? : Yes Equipment in use: : Walker - Rolling Equipment in use: : Bedside Commode Other Equipment comments: : PD SUPPLIES AND CYCLER Mental health screen: : No mental health history Psychosocial status: : Independent adult (65+) DCP Re-evaluation QUESTION: ANSWER Would patient like to participate in any Care Coordination programs (if applicable): : Not applicable PATIENT: STEVE RADFORD ENCOUNTER: [id number] MEDICAL RECORD#: [id number] ADMISSION DATE: 10/30/2020 DISCHARGE DATE: 11/04/2020 ATTENDING MD: EB PARSON : AGE: 85 MARITAL STATUS: M DC PLAN ID: [id number] FACILITY: [facility] PRINTED ON: 11/07/20 13:39 CT All edits/amendments must be made on the electronic document DICTATION DATE: 11/07/201338 TAPPER SUPERVISOR: SALVATORE 11/07/201338 RPT#: [id number] DC DATE:11/04/20 STATUS: DIS IN [facility] [address] [place] [address] END OF REPORT
== END 2020-11-04 13:56 | disposition home health service (06) | DRG 871 ==
LOC: D.ER 13:37 → D.M2 21:31
PROVIDERS: Family Medicine; ADMIT Family Medicine; ATTEND Family Medicine
DX: A41.9 Sepsis, unspecified organism (principal); G93.41 Metabolic encephalopathy; N18.6 End stage renal disease; I50.23 Acute on chronic systolic (congestive) heart failure; L03.115 Cellulitis of right lower limb; I13.2 Hypertensive heart and chronic kidney disease with heart failure and with stage 5 chronic kidney disease, or end stage renal disease; Z99.2 Dependence on renal dialysis; D63.1 Anemia in chronic kidney disease; F03.90 Unspecified dementia, unspecified severity, without behavioral disturbance, psychotic disturbance, mood disturbance, and anxiety; E78.5 Hyperlipidemia, unspecified; I48.91 Unspecified atrial fibrillation; M19.90 Unspecified osteoarthritis, unspecified site; K21.9 Gastro-esophageal reflux disease without esophagitis; G89.29 Other chronic pain; M54.9 Dorsalgia, unspecified; J44.9 Chronic obstructive pulmonary disease, unspecified; Z86.73 Personal history of transient ischemic attack (TIA), and cerebral infarction without residual deficits

== ENCOUNTER 2020-11-05 11:06 | Inpatient (IN) | payer MEDICARE ==
[2020-11-05] VITALS (34 sets, daily range): BP systolic 76–143; BP diastolic 37–74; BMI 25.4
[~2020-11-05] VITALS: Ht 182.9 cm; Wt 85.3 kg
--- NOTE | ~2020-11-05 | HEMODYNAMI ---
PATIENT:STEVE RADFORD MEDICAL RECORD: [id number] : 31 LOCATION:[facility] D.2305 ADMISSION DATE: 11/05/20 Generatedon:114:38 Patient name: STEVE RADFORD Patient #: [id number] SSN: [id number] : 1935 Date of study: 11/08/2020 Page: Of Hemodynamic Procedure Report Patient Data Patient Demographics Procedure consent was obtained First Name: STEVE Gender: Male Last Name: PRABHAKAR : 1935 Patient #: [id number] Age: 85 year(s) Race: SSN: [id number] Additional ID: [id number] Contact details [address]: [address] [place] [address] State: [place] City: [place] Zip code: [address] Past Medical History Allergies Allergen Reaction Date Comments Reported Other allergy 11/08/2020 daypro Admission Admission Data Admission Date: 11/05/2020 Admission Time: 12:17 Arrival Date: 11/05/2020 Arrival Time: 12:17 Admit Source: Emergency Insurance Payor: Medicare department Room #: D.2305 Height (in.): 71.65 BSA: 2.04 (m2) Height (cm.): 182 BMI: 25.06 (kg/m2) Weight (lbs.): 182.98 Weight (kg.): 83 Lab Results Lab Result Date: 11/08/2020 Lab Result Time: 0:00 Biochemistry Name Units Result Min Max BUN mg/dl 55 --(----)-* 7 18 Creatinine mg/dl 9.1 --(----)-* 0.6 1.3 CBC Name Units Result Min Max Hemoglobin g/dl 9.7 *-(----)-- 13.5 17.5 Procedure Procedure Types Cath Procedure Diagnostic Procedure LHC Coronaries w/Grafts Sedation Charges Moderate Sedation 10-24 minutes Procedure Description Procedure Date Procedure Date: 11/08/2020 Procedure Start Time: 14:19 Procedure End Time: 14:36 Procedure Staff Name Function Bryon Caceres MD Performing Physician Elvira Hudson RT Monitor Stephanie Shepherd RT Scrub North June RN Nurse Neal Matthews RN Nurse Procedure Data Cath Procedure Fluoroscopy Diagnostic fluoroscopy Total fluoroscopy Time: 5 time: 5 min min Diagnostic fluoroscopy Total fluoroscopy dose: 788 dose: 788 mGy mGy Contrast Material Contrast Material Type Amount (ml) Isovue 370 74 Entry Location Entry Primary Successful Side Size Upsize Upsize Entry Closure Succes sful Closure Location (Fr) 1 (Fr) 2 (Fr) Remarks Device Remarks Femoral Right 5 Fr Exoseal artery Estimated blood loss: 5 ml Diagnostic catheters Device Type Used For End Catheter Placement MULTIPACK JL 4.0 5Fr Procedure catheter MULTIPACK 3DRC 5Fr Procedure catheter MULTIPACK Pigtail 5 Fr Procedure catheter Procedure Complications No complications Procedure Medications Medication Administration Route Dosage 0.9% NaCl I.V. 100 ml/hr Benadryl I.V. 50 mg Oxygen etCO2 Nasal cannula 2 l/min Heparin Flush Bag added to field 2 bags (1000units/500ml NS) Lidocaine 2% added to field 20 Versed I.V. 1 mg Fentanyl I.V. 50 mcg Versed I.V. 0.5 mg Fentanyl I.V. 25 mcg Hemodynamics Rest BSA: 2.04 (m2) HGB: 9.7 (g/dl) O2 Consumption: Estimated: 239.88 (ml/min) O2 Con sumption indexed: Estimated:117.59 (ml/min/m) Heart Rate: 81 (bpm) Pressure Samples Time Site Value (mmHg) Purpose Heart Use Rate(bpm) 14:32 LV 119/-1,6 Snapshot 81 Gradients Valve Time Site Site Mean SEP/DFP Peak To Heart Use 1 2 (mmHg) (sec/min) Peak Rate (mmHg) (bpm) Aortic 14:32 LV AO 80 Snapshots Pre Cath Intra NCS Post Cath Vital Signs Time Heart Resp SPO2 etCO2 NIBP (mmHg) Rhythm Pain Sedation Rate (ipm) (%) (mmHg) Status Level (bpm) 14:04:25 83 25 0 187/102(146) NSR 0 (11) 10(A) , No pain 14:08:53 84 21 96 0 168/78(128) NSR 0 (11) 10(A) , No pain 14:13:16 81 15 97 0 158/75(120) NSR 0 (11) 9(A) , No pain 14:17:36 86 15 99 0 148/72(115) NSR 0 (11) 9(A) , No pain 14:21:52 84 14 97 0 143/69(113) NSR 0 (11) 9(A) , No pain 14:26:06 88 14 96 0 134/73(101) NSR 0 (11) 9(A) , No pain 14:30:18 81 15 96 0 130/69(101) NSR 0 (11) 9(A) , No pain 14:34:27 83 15 96 0 147/72(109) NSR 0 (11) 10(A) , No pain Medications Time Medication Route Dose Verified Delivered Reason Notes Eff ectiveness by by 14:03:34 0.9% NaCl I.V. 100 Bryon North used for ml/hr St Rian June generation technologist 14:03:43 Benadryl I.V. 50 mg Bryon North used for NickiRian June generation technologist 14:03:52 Oxygen etCO2 2 Bryon North used for Nasal l/min [facility] Rian June generation technologist cannula 14:04:05 Heparin Flush added 2 Bryon Bryon used for Bag to bags [facility] procedure (1000units/500ml field MD FELICIANO NS) 14:04:14 Lidocaine 2% added 20ml Bryon Bryon for local to vial [facility] anesthetic field MD FELICIANO 14:12:23 Versed I.V. 1 mg Bryon North for NickiRian June RN sedation 14:12:29 Fentanyl I.V. 50 Bryon North for mcg NickiRian June RN sedation 14:19:35 Versed I.V. 0.5 Bryon North for mg NickiRian June RN sedation 14:19:39 Fentanyl I.V. 25 Bryon North for mcg Nicki Slade RN sedation Procedure Log Time Note 13:33:59 Diagnostic Cath Status : Urgent 13:36:03 Admit Source: Emergency department 13:36:06 Patient Height : 71.65 inches 13:36:09 Patient Weight : 182.98 lbs 13:36:13 Insurance Payor : Medicare 13:36:16 Arrival Date: 11/05/2020 12:17:00 PM 13:37:05 Lab Result : Creatinine 9.1 mg/dl 13:37:05 Lab Result : BUN 55 mg/dl 13:37:05 Lab Result : Hemoglobin 9.7 g/dl 13:40:03 Informed consent obtained and on chart 13:40:14 ACC Patient presents with Unstable Angina CCS Anginal Class 2--Slight limitation of ordinary activity. 13:40:20 Procedure Status Urgent Heart Cath (IP). 13:40:22 Time tracking: Regular hours (M-F 7:00 - 5:00) 13:40:26 Plan of Care:Hemodynamics will remain stable., Cardiac rhythm will remain stable., Comfort level will be maintained., Respiratory function will remain adequate., Patient/ family verbilizes understanding of procedure., Procedure tolerated without complication., Recovers from procedure without complications.. 13:40:36 H&P Date Dictated: 11/07/2020 Within 30 days and on chart.. 13:40:40 Family unavailable. 13:40:41 Patient NPO since Midnight. 13:41:01 Patient allergic to Other allergydaypro 13:41:09 Alarms reviewed by R. N. 13:41:10 Sharps counted by scrub and verified by R.N. 13:41:12 Lab results completed and on chart. 13:41:15 Stress Test: no; N/A ? 13:43:46 Use device set Femoral Dx 13:43:47 ACIST Syringe (98315) opened to sterile field. 13:43:48 Bag Decanter (2002S) opened to sterile field. 13:43:48 Medline Cath Pack ([id number]) opened to sterile field. 13:43:49 ACIST Hand Control (85013) opened to sterile field. 13:43:50 ACIST Manifold (15128) opened to sterile field. 13:43:50 DIAGNOSTIC Multipack 5Fr catheter set (FB5594) opened to sterile field. 13:43:52 SHEATH 5FR Cove (SZN523) opened to sterile field. 13:43:53 EMERALD Guide Wire (950-799) opened to sterile field. 13:43:57 Tegaderm 4 x 4 (1626W) opened to sterile field. 13:44:04 Neal Matthews RN sent for patient. Start room use. 13:55:13 Patient received from ICU to CCL 2 Alert and oriented. Tansferred to table in Supine position. 13:55:15 Warm blankets applied, and anaya hugger turned on for patient comfort. 13:55:15 Correct patient and procedure confirmed by team. 13:55:16 ECG and BP/O2 sat monitors applied to patient. 13:55:18 Pre-procedure instructions explained to patient. 13:55:18 Pre-op teaching completed and patient verbalized understanding. 13:55:20 Is the patient allergic to Iodine/contrast media? No. 13:55:22 Was the patient premedicated? Yes 14:03:17 Vital chart was started 14:03:34 0.9% NaCl 100 ml/hr I.V. was administered by North June RN; used for procedure; Verbal order read back and verified. 14:03:40 Baseline sample Acquired. 14:03:43 Benadryl 50 mg I.V. was administered by North June RN; used for procedure; Verbal order read back and verified. 14:03:46 Is patient on blood thinner?Yes 14:03:48 ACC The patient was administered the following blood thiners within the last 24 hours: ACCPlavix 14:03:51 Patient diabetic? No. 14:03:52 Oxygen 2 l/min etCO2 Nasal cannula was administered by North June RN; used for procedure; Verbal order read back and verified. 14:03:52 If diabetic: On Metformin? N/A 14:03:54 ----Pre-sedation anethsthesia assessment.---- 14:03:57 Previous problem with sedation/anesthesia? No ? 14:03:58 Snore? Yes 14:03:59 Sleep apnea? No 14:04:00 Deviated septum? No 14:04:01 Opens mouth fully? Yes 14:04:03 Sticks out tongue? Yes 14:04:05 Heparin Flush Bag (1000units/500ml NS) 2 bags added to field was administered by Bryon Caceres MD; used for procedure; Verbal order read back and verified. 14:04:05 Airway obstruction? No ? 14:04:13 Dentures? Yes partial in tight 14:04:14 Lidocaine 2% 20ml vial added to field was administered by Bryon Caceres MD; for local anesthetic; Verbal order read back and verified. 14:04:19 Patient pain scale 0/10 ?. 14:04:33 IV patent on arrival in right forearm with 0.9% NaCl at [facility]. 14:04:43 Right groin area was prepped with chlora-prep and draped in sterile fashion 14:04:52 Rhythm: sinus rhythm 14:06:39 Risk of Mortality: 2.1 14:06:41 Risk of blood transfusion: 23.4 14:06:45 Risk of MEGAN: 24.5 14:11:50 --------ALL STOP TIME OUT------ 14:11:51 Final Timeout: patient, procedure, and site verified with staff and physician. All members of the team are in agreement. 14:11:52 Right groin site verified by team. 14:11:55 Fire Safety Assessment: A--An alcohol-based skin anteseptic being used preoperatively., C--Open oxygen or nitrous oxide is being used., D--An ESU, laser, or fiber-optic light is being used. 14:12:11 Physical assessment completed. ASA score P 3 - A patient with severe systemic disease as per Bryon Caceres MD. 14:12:15 5) <15 or on dialysis Very severe, or end stage kidney failure. 14:12:17 Maximum allowable contrast dose (3.7 X eGFR X 0.75)17 ml. 14:12:21 Sedation plan: IV Moderate Sedation Medication:Versed, Fentanyl 14:12:23 Versed 1 mg I.V. was administered by North June RN; for sedation; Verbal order read back and verified. 14:12:29 Fentanyl 50 mcg I.V. was administered by North June RN; for sedation; Verbal order read back and verified. 14:19:26 Procedure started. 14:19:26 Full Disclosure recording started 14:19:35 Versed 0.5 mg I.V. was administered by North June RN; for sedation; Verbal order read back and verified. 14:19:38 Local anesthetic to right femoral artery with Lidocaine 2% by Bryon Caceres MD.INITIAL ACCESS ONLY 14:19:39 Fentanyl 25 mcg I.V. was administered by North June RN; for sedation; Verbal order read back and verified. 14:20:04 A 5 Fr sheath was inserted into the Right Femoral artery 14:21:20 A MULTIPACK JL 4.0 5Fr catheter was advanced over the wire and used for Procedure. 14:21:49 LCA angiography performed. 14::51 Injector settings: Ml/sec: 3, Volume: 6, 14:23:03 Catheter removed. 14:23:24 A MULTIPACK 3DRC 5Fr catheter was advanced over the wire and used for Procedure. 14:24:13 SVG to RCA angiography performed. 14:25:13 Injector settings: Ml/sec: 3, Volume: 6, 14:27:13 j wire removed switching to glidewire. 14:27:51 GLIDE WIRE Super Stiff Angled 260cm (IE8943) opened to sterile field. 14:27:56 glide 260 wire advanced. 14:29:19 WEI to LAD angiography performed. 14:29:44 Injector settings: Ml/sec: 3, Volume: 6, 14:29:47 Catheter exchanged over wire. 14:30:02 ACCDominant side:Left 14:30:29 A MULTIPACK Pigtail 5 Fr catheter was advanced over the wire and used for Procedure. 14:31:19 LV gram done using VERDUGO 14:32:23 LV hemodynamics recorded. 14:32:35 EF : 40 % 14:32:41 Injector settings: Ml/sec: 5, Volume: 15, 14:32:54 Catheter removed. 14:33:03 EXOSEAL 5Fr (EX500) opened to sterile field. 14:33:13 Sheath removed intact; hemostasis achieved with Exoseal to the Right Femoral artery. 14:33:19 Fluoroscopy time 05.00 minutes. 14:33:23 Flurop Dose total: 788 14:33:23 Fluoroscopy dose: 788 mGy 14:33: Dose Area Product 16433 mGy/cm. 14:33:31 Contrast amount:Isovue 370 74ml. 14:33:34 Maximum allowable dose exceeded? No. 14:33:35 Sharps counted by scrub and verified by R.N. 14:33:36 Procedure ended.(Physican Out) 14:34:00 Post-op/insertion site Right Femoral artery dressed using a 4 x 4 and Tegaderm. 14:34:08 Post right femoral artery:stable, soft, clean and dry 14:34:10 Post Procedure Pulses reassessed and unchanged 14:34:12 Post procedure: right dorsailis pedis pulse 2+ Normal; easily identifiable; not easily obliterated. 14:34:16 Post-procedure physical assessment completed. ASA score P 3 - A patient with severe systemic disease as per Bryon Caceres MD. 14:34:24 Post procedure rhythm: unchanged. 14:34:27 Estimated blood loss: 5 ml 14:34:28 Post procedure instruction explained to patient.Patient verbalizes understanding. 14:34:28 Patient needs reinforcement of post procedure teaching. 14:34:44 Procedure type changed to Cath procedure, Diagnostic procedure, LHC, Coronaries w/Grafts, Sedation Charges, Moderate Sedation 10-24 minutes 14:36:01 Procedure and supply charges have been captured, reviewed, submitted and are correct. 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 14:36:14 See physician's report for complete and final results. 14:36:17 Report given to ICU. 14:36:20 Patient transfered to ICU with Bed. 14:36:22 Procedure ended. 14:36:22 Full Disclosure recording stopped 14:36:28 End room use (Document Last) 14:37:04 End room use (Document Last) 14:37:22 End room use (Document Last) 14:38:06 Vital chart was stopped Device Usage Item Name Manufacture Quantity Catalog Hospital Part Current Minimal L ot# / Number Charge Number Stock Stock Serial# Code ACIST Acist 1 75876 413707 581509 495122 20 Syringe Medical (72919) Systems Inc Bag Microtek 1 922863 49337 518781 5 Decanter Medical Inc. () Medline Medline 1 [id number] 103592 65193 206011 5 Cath Pack ([id number]) ACIST Hand Acist 1 10836 065423 219817 382440 5 Control Medical (50315) Systems Inc ACIST Acist 1 12925 034852 236810 993264 5 Manifold Medical (54242) Systems Inc DIAGNOSTIC Cardinal 1 XQ2958 921221 99226 137368 30 [facility] 5Fr catheter set (OH8996) SHEATH 5FR Terumo 1 TOK438 826292 374632 609320 5 Cove (IQH113) EMERALD Cardinal 1 053-962 807153 375597 047988 5 Guide Wire Health (502455) Tegaderm 4 3M 1 1626W 416290 888189 284460 5 x 4 (1626W) MULTIPACK Cardinal 1 771096 5 JL 4.0 5Fr Health catheter MULTIPACK Cardinal 1 629691 5 3DRC 5Fr Health catheter GLIDE WIRE Terumo 1 IE9316 273608 879235 611183 5 Super Stiff Angled 260cm (XX2149) MULTIPACK Cardinal 1 968227 5 Pigtail 5 Health Fr catheter EXOSEAL 5Fr Cardinal 1 EX500 141274 199891 518343 10 (EX500) Health Signature Audit Howe Stage Time Signature Unsigned Intra-Procedure 11/08/2020 Elvira Hudson 2:37:04 PM RT(R) Intra-Procedure 11/08/2020 Neal 2:37:22 PM Cassie RN Intra-Procedure 11/08/2020 Bryon Aguilar 2:38:04 PM Rian FELICIANO Signatures Performing Physician : Signature : Bryon Caceres MD Date : Time : Monitor : Elvira Hudson Signature : RT Date : Time : Nurse : North June RN Signature : Date : Time : Nurse : Neal Matthews Signature : RN Date : Time : [facility] [address] [place] [address]
[~2020-11-05 11:06] MED LIST changes: +CHRONULAC30 ML; +CICLOPIROX CREA15 GM; +CICLOPIROX CREA15 GM TOPICAL; +DOK100 MG PO; +GENTAMICIN SULFATE TOPICAL; +PROPECIA1 MG PO; +ULTRAM50 MG; +ZETIA10 MG PO; +ZOCOR20 MG PO
--- NOTE | 2020-11-05 11:38 | NUR ---
SECOND IV LINE STARTED, 20 GAUGE TO RIGHT UPPER ARM. NO S/S OF INFILTRATION.
[2020-11-05 11:46] LABS: BASOPHILS 0.3 % (0-2); EOSINOPHILS 1.8 % (0-7); HEMATOCRIT 25.4 % (42.0-54.0); HEMOGLOBIN 8.1 g/dL (13.5-17.5); IMMATURE GRANULOCYTES 2.3 % (0-5); LYMPHOCYTE ABS# 1.47 10x3/uL (1.32-3.57); LYMPHOCYTES 18.8 % (15-50); MCH 31.2 pg (26.0-34.0); MCHC 31.9 g/dL (31.0-37.0); MCV 97.7 fL (80.0-100.0); MEAN PLATELET VOLUME 9.8 fL (7.4-10.4); MONOCYTES 14.3 % (2-11); NEUTROPHIL ABS# 4.89 10x3/uL (1.78-5.38); NEUTROPHILS 62.5 % (40-80); PLATELET COUNT 205 10x3/uL (130-400); RDW 13.9 % (11.5-14.5); WBC 7.8 10x3/uL (4.8-10.8)
[2020-11-05 11:59] LABS: INR 1.22 (0.85-1.17); PROTIME 14.3 SECONDS (11.6-15.0)
--- NOTE | 2020-11-05 12:04 | NUR ---
PATIENT RETURNED FROM CT SCAN AT THIS TIME. PATIENT RESTING QUIETLY, AROUSES EASILY TO VERBAL STIMULI. FAMILY AT BEDSIDE.
[2020-11-05 12:14] LABS: CALC OSMOLALITY 294 mosm/kg (275-300); CALCIUM 8.1 mg/dL (8.5-10.1); CARBON DIOXIDE 25.4 mmol/L (21.0-32.0); CHLORIDE - SERUM 101 mmol/L (98-107); CREATININE - SERUM 9.1 mg/dL (0.6-1.3); GLUCOSE 119 mg/dL (74-106); POTASSIUM - SERUM 3.2 mmol/L (3.5-5.1); SODIUM 139 mmol/L (136-145); UREA NITROGEN 56 mg/dL (7-18); eGFR NON AFRICAN AMERICAN 6 mL/min (90-120)
[2020-11-05 12:29] LABS: ALBUMIN 1.3 g/dL (3.4-5.0); ALKALINE PHOSPHATASE 73 U/L (30-120); ALT (SGPT) 24 U/L (10-68); BILIRUBIN - TOTAL 0.28 mg/dL (0.2-1.3); CKMB 1.4 U/L (0.0-3.6); CREATINE KINASE 66 UL (21-232); MAGNESIUM - SERUM 1.9 mg/dL (1.8-2.4); PROTEIN - SERUM 4.8 g/dL (6.4-8.2); THYROID STIMULATING HORMONE 3.88 uIU/mL (0.36-3.74)
[2020-11-05 12:31] LABS: TROPONIN-I 0.113 ng/mL (0.000-0.060)
--- NOTE | 2020-11-05 13:45 | NUR ---
RECEIVED FROM ER PER STRETCHER. TRANSFERED TO BED PER STAFF. AWAKE AND ALERT SKIN WARM AND DRY. RIGHT LEG BRIGHT RED. SENSITIVE TO TOUCH. TURNS SELF FROM SIDE TO SIDE. BOTH BUTTOCK WITH DEEP RED AREAS THAT DO NOT AUDREY. MEDIPLEX APPLIED. SMALL BROWN STOOL IN PULL UP. PD CATH SECURE TO ABD. NO REDNESS OR DRAINAGE AT SITE. DR. NAGY NOTIFIED OF TIP OF PD CATH TOUCHED HIS PANTS AT HOME. IV RIGHT ARM INFUSING WITH LEVOPHED AND LR BOLUS
[2020-11-05 15:00] LABS: INFLUENZA TYPE A NEGATIVE (NEGATIVE); INFLUENZA TYPE B NEGATIVE (NEGATIVE); SARS-CoV-2 ANTIGEN NEGATIVE- SARS-COV-2 (NEGATIVE)
--- NOTE | 2020-11-05 15:27 | NUR ---
HOUSE SUPERVISORY NOTIFIED OF NEED FOR PD FLUID AND SET UP.
--- NOTE | 2020-11-05 19:15 | NUR ---
PATIENT PD DRAINING. PD CULTURES OBTAINED AND TAKEN TO LAB.
--- NOTE | 2020-11-05 20:01 | NUR ---
UNABLE TO COMPLETE MED RX. PATIENT NOT SURE OF WHAT MEDICATIONS HE TAKES. PATIENT LEFT HIS LIST AT HOME. ATTEMPTED TO CALL DAUGHTER CEM JAMES AND THE NUMBER WE HAVE HAS BEEN DISCONNECTED.
[2020-11-05 20:49] LABS: BILIRUBIN NEGATIVE (NEGATIVE); KETONE NEGATIVE (NEGATIVE); NITRITE NEGATIVE (NEGATIVE); UROBILINOGEN NORMAL mg/dL (< 2)
[2020-11-05 20:50] LABS: BACTERIA FEW HPF (NONE SEEN); SQUAMOUS EPITHELIAL 0-5 HPF (0-4); UDS - AMPHET NEGATIVE QUAL (NEGATIVE); UDS - BARB NEGATIVE QUAL (NEGATIVE); UDS - BENZO NEGATIVE QUAL (NEGATIVE); UDS - COCAINE NEGATIVE QUAL (NEGATIVE); UDS - OPIATE NEGATIVE QUAL (NEGATIVE); UDS - PCP NEGATIVE QUAL (NEGATIVE); UDS - THC NEGATIVE QUAL (NEGATIVE); WHITE CELLS - URINE NONE SEEN HPF (0-1)
[2020-11-06] VITALS (24 sets, daily range): BP systolic 92–140; BP diastolic 34–88
[2020-11-06 04:29] LABS: BASOPHILS 0.4 % (0-2); EOSINOPHILS 2.7 % (0-7); HEMATOCRIT 30.2 % (42.0-54.0); HEMOGLOBIN 9.7 g/dL (13.5-17.5); IMMATURE GRANULOCYTES 4.3 % (0-5); LYMPHOCYTE ABS# 1.17 10x3/uL (1.32-3.57); LYMPHOCYTES 17.3 % (15-50); MCH 31.6 pg (26.0-34.0); MCHC 32.1 g/dL (31.0-37.0); MCV 98.4 fL (80.0-100.0); MEAN PLATELET VOLUME 9.6 fL (7.4-10.4); MONOCYTES 15.9 % (2-11); NEUTROPHIL ABS# 4.03 10x3/uL (1.78-5.38); NEUTROPHILS 59.4 % (40-80); PLATELET COUNT 214 10x3/uL (130-400); RBC 3.07 10x6/uL (4.20-6.10); RDW 14.2 % (11.5-14.5); WBC 6.8 10x3/uL (4.8-10.8)
[2020-11-06 05:06] LABS: ALBUMIN 1.5 g/dL (3.4-5.0); ANION GAP 17.6 mmol/L (8-16); BILIRUBIN - TOTAL 0.37 mg/dL (0.2-1.3); CALCIUM 8.6 mg/dL (8.5-10.1); CARBON DIOXIDE 22.3 mmol/L (21.0-32.0); PHOSPHOROUS 6.2 mg/dL (2.5-4.9); PROTEIN - SERUM 5.4 g/dL (6.4-8.2); VANCOMYCIN - RANDOM 38.1 ug/mL (10.0-20.0)
[2020-11-06 05:08] LABS: POTASSIUM - SERUM 3.9 mmol/L (3.5-5.1)
--- NOTE | 2020-11-06 18:45 | NUR ---
WELDING MACHINE FEEDER CARDIOLOGY NUMBER PAGED.
--- NOTE | 2020-11-06 19:00 | NUR ---
RECEIVED BEDSIDE REPORT. ROUNDING COMPLETE. PATIENT IS ALERT AND PLEASANTLY CONFUSED AT TIMES. PATIENT STATES, THINGS ARE GETTING MIXED UP IN HIS HEAD TODAY. PATIENT REMAINS ON 2L NC. RESPIRATIONS ARE EVEN AND UNLABORED. NO S/S OF DISTRESS. NO C/O PAIN. NEEDS MET. CALL LIGHT WITHIN REACH.
[2020-11-07] VITALS (23 sets, daily range): BP systolic 91–140; BP diastolic 42–105; Ht 182.9 cm; Wt 85.3 kg
[2020-11-07 04:15] LABS: BASOPHILS 0.5 % (0-2); EOSINOPHILS 3.1 % (0-7); HEMATOCRIT 30.4 % (42.0-54.0); IMMATURE GRANULOCYTES 3.7 % (0-5); LYMPHOCYTE ABS# 1.45 10x3/uL (1.32-3.57); LYMPHOCYTES 19.7 % (15-50); MCH 31.6 pg (26.0-34.0); MCHC 32.9 g/dL (31.0-37.0); MEAN PLATELET VOLUME 9.7 fL (7.4-10.4); MONOCYTES 13.9 % (2-11); NEUTROPHIL ABS# 4.35 10x3/uL (1.78-5.38); NEUTROPHILS 59.1 % (40-80); RBC 3.16 10x6/uL (4.20-6.10); RDW 14.1 % (11.5-14.5); WBC 7.4 10x3/uL (4.8-10.8)
[2020-11-07 04:27] LABS: ALBUMIN 1.6 g/dL (3.4-5.0); ANION GAP 16.4 mmol/L (8-16); BILIRUBIN - TOTAL 0.36 mg/dL (0.2-1.3); CALCIUM 8.6 mg/dL (8.5-10.1); CARBON DIOXIDE 25.2 mmol/L (21.0-32.0); CREATININE - SERUM 8.5 mg/dL (0.6-1.3); PHOSPHOROUS 6.3 mg/dL (2.5-4.9); POTASSIUM - SERUM 3.6 mmol/L (3.5-5.1); PROTEIN - SERUM 5.6 g/dL (6.4-8.2); VANCOMYCIN - RANDOM 33.8 ug/mL (10.0-20.0)
[2020-11-07 04:29] LABS: MCV 96.2 fL (80.0-100.0); PLATELET COUNT 258 10x3/uL (130-400)
--- NOTE | 2020-11-07 09:00 | NUR ---
ATTEMPTED TO DRAIN PD FLUIDS. 500 MLS ONLY PUT OUT. REPOSITIONED PT AND DOUBLE CHECKED ALL CONNECTORS FOR PATENCY. ONLY REPLACED 1000MLS. DR. IZAGUIRRE NOTIFIED.
[2020-11-07 09:21] LABS: CHOL - HDL RATIO 2.5 ratio (2.3-4.9); LDL-HDL RATIO 1.3 ratio (1.5-3.5)
--- NOTE | 2020-11-07 18:44 | NUR ---
I have reviewed this patient and I concur with the Shift Assessment completed by the Licensed Practical Nurse today this shift.
--- NOTE | 2020-11-07 19:00 | NUR ---
BEDSIDE REPORT COMPLETED WITH OFF GOING NURSE. PT REQUESTED TO GET UP TO THE BEDSIDE COMMODE, MYSELF AND THE DAYSHIFT NURSE HELPED PT TO THE BEDSIDE. PT WAS ABLE TO URINATE AT THIS TIME. SHIFT ASSESSMENT COMPLETED, SEE FLOWSHEET FOR DETAILS. PT ATTACHED TO PD AND DRAIN INITIATED. PT DENIES FURTHER NEEDS AT THIS TIME. NO S/S OF DISTRESS. WILL CONTINUE TO MONITOR.
--- NOTE | 2020-11-07 21:00 | NUR ---
SPOKE TO DR AUSTIN REGARDING A LACK OF FLUID OBTAINED DURING DRAIN. ORDERS RECEIVED. DID NOT INSTILL MORE FLUID PER CONVERSATION. PT IS NOT SHOWING ANY S/S OF DISTRESS. WILL CONTINUE TO MONITOR.
[2020-11-08] VITALS (20 sets, daily range): BP systolic 113–164; BP diastolic 47–89
[2020-11-08 04:26] LABS: BASOPHILS 0.6 % (0-2); EOSINOPHILS 2.2 % (0-7); HEMATOCRIT 28.9 % (42.0-54.0); HEMOGLOBIN 9.7 g/dL (13.5-17.5); LYMPHOCYTES 20.1 % (15-50); MCHC 33.5 g/dL (31.0-37.0); MCV 95.5 fL (80.0-100.0); MEAN PLATELET VOLUME 7.2 fL (7.4-10.4); MONOCYTES 12.6 % (2-11); NEUTROPHILS 64.5 % (40-80); PLATELET COUNT 268 10x3/uL (130-400); RBC 3.03 10x6/uL (4.20-6.10); RDW 14.2 % (11.5-14.5); WBC 6.8 10x3/uL (4.8-10.8)
[2020-11-08 04:57] LABS: ALBUMIN 1.4 g/dL (3.4-5.0); ANION GAP 16.9 mmol/L (8-16); BILIRUBIN - TOTAL 0.27 mg/dL (0.2-1.3); CALCIUM 8.5 mg/dL (8.5-10.1); CARBON DIOXIDE 23.8 mmol/L (21.0-32.0); CREATININE - SERUM 9.1 mg/dL (0.6-1.3); POTASSIUM - SERUM 3.7 mmol/L (3.5-5.1); PROTEIN - SERUM 5.5 g/dL (6.4-8.2)
[2020-11-08 05:29] LABS: PHOSPHOROUS 6.8 mg/dL (2.5-4.9); VANCOMYCIN - RANDOM 30.2 ug/mL (10.0-20.0)
--- NOTE | 2020-11-08 10:36 | NUR ---
0700 BEDSIDE REPORT RECEIEVED AND CARE ASSUMED OF PATIENT.. SEE FLOW SHEET FOR SHIFT ASSESMENT FINDINGS.. 0715 DR FARRELL IN TO SEE PATIENT UPDATE IS GIVEN.. AND ORDERS RECIEVED... PATIENT PLACED ON A DRAIN FROM PD CATH 0745 NO DRAINAGE FROM PD CATH DR INFORMED AND ORDER RECIEVED FOR IR TO SEE PATIENT 0900 AT THE BEDSIDE.. MEDS GIVEN.. ASSISTED PATIENT WITH BATH AND SHAVE.. PARTIAL LINEN CHANGE IS DONE..
--- NOTE | 2020-11-08 11:43 | NUR ---
1130 DR BECK IN TO SEE PATIENT UPDATE IS GIVEN AND DR PEREZ IS RECONSULTED BY HIM .. [address] DR B[address]K AND DR EATON IN TO SEE PATIENT.. AT BEDSIDE DR SPOKE WITH HER
--- NOTE | 2020-11-08 13:26 | NUR ---
1300 [facility] HAS CALLED AND STATED THEY WERE COMING TO GET PATIENT FOR HEART CATH PRIOR TO PT GOING TO THE OR.. 1330 PT STILL REMAINS IN ROOM
--- NOTE | 2020-11-08 13:44 | NUR ---
1345 PT TRANSPORTED TO CARDIAC BODY TRIMMER UPHOLSTERER VIA BED
--- NOTE | 2020-11-08 15:04 | NUR ---
1500 RETURNED FROM TRAVERTINE INSTALLER VIA BED.. PATIENT IS SLEEPING , SR ON MONITOR, 02 ON AT 4 L NC, SAT IS 94.. BP 146/93 PEDAL PULSE IS FAINTLY PALPABLE
--- NOTE | 2020-11-08 15:58 | NUR ---
6282 IN TO SEE PATIENT.. STATED THAT DR CALDERON HAD SPOKEN WITH HER POST CATH
--- NOTE | 2020-11-08 18:03 | NUR ---
1700 PT IS TRANSPORTED TO THE OR VIA BED .. TO OR WAITING AREA..
--- NOTE | 2020-11-08 20:00 | NUR ---
RECEIVED PT FROM RECOVERY BACK TO ROOM 2305. PT IS DROWSY, BUT WILL AWAKEN AND ANSWER QUESTIONS. SHIFT ASSESSMENT COMPLETED, SEE FLOWSHEET FOR DETAILS.
[2020-11-09] VITALS (21 sets, daily range): BP systolic 112–181; BP diastolic 48–79
[2020-11-09 05:24] LABS: BASOPHILS 0.3 % (0-2); EOSINOPHILS 0 % (0-7); HEMATOCRIT 31.2 % (42.0-54.0); HEMOGLOBIN 10.3 g/dL (13.5-17.5); LYMPHOCYTES 8.3 % (15-50); MCH 31.8 pg (26.0-34.0); MCV 96.5 fL (80.0-100.0); MEAN PLATELET VOLUME 7.3 fL (7.4-10.4); MONOCYTES 1.5 % (2-11); NEUTROPHILS 89.9 % (40-80); PLATELET COUNT 319 10x3/uL (130-400); RBC 3.23 10x6/uL (4.20-6.10); RDW 14.6 % (11.5-14.5); WBC 7.9 10x3/uL (4.8-10.8)
[2020-11-09 05:38] LABS: ALBUMIN 1.5 g/dL (3.4-5.0); ANION GAP 21.1 mmol/L (8-16); APTT 44.4 SECONDS (22.8-39.4); BILIRUBIN - TOTAL 0.3 mg/dL (0.2-1.3); CALCIUM 8.8 mg/dL (8.5-10.1); CARBON DIOXIDE 21.8 mmol/L (21.0-32.0); CREATININE - SERUM 9.6 mg/dL (0.6-1.3); INR 1.28 (0.85-1.17); PHOSPHOROUS 8.2 mg/dL (2.5-4.9); PROTEIN - SERUM 5.7 g/dL (6.4-8.2); PROTIME 14.8 SECONDS (11.6-15.0); VANCOMYCIN - RANDOM 26.9 ug/mL (10.0-20.0)
[2020-11-09 05:47] LABS: POTASSIUM - SERUM 4.9 mmol/L (3.5-5.1)
--- NOTE | 2020-11-09 08:00 | NUR ---
AWAKE AND ALERT SKIN WARM AND DRY. REORIENTATED TO NPO AND PROCEDURE TODAY. IV PATENT RIGHT FOREARM INFUSING WITH CORDARONE AT 0.5MG/H. NS KVO. DENIES PAIN. NO DISTRESS. MONITOR SR.
--- NOTE | 2020-11-09 12:54 | NUR ---
Nutrition follow-up: Pt continues NPO for scheduled procedure today Labs reviewed: PO4 high, Tums started for binder BIPAP as needed due to SOB Wt: 187# RDN will monitor patients diet advancement, tolerance and progress toward nutrition goals. Follow-up: 11/11/20
--- NOTE | 2020-11-09 14:36 | NUR ---
TO RADIOLOGY PER BED
--- NOTE | 2020-11-09 15:05 | NUR ---
FLUOR TIME .7 MIN 1.86 MGY
--- NOTE | 2020-11-09 15:20 | NUR ---
RETURNED TO ROOM PER BED. AWAKE AND ALERT, NO SEDATION REQUIRED. STATES PERINEAL CATH CLEAR. PATIENT UP IN CHAIR AT BEDSIDE WITH HELP. STATES HE RIGHT LEG HURTS AND HIS KNEES
--- NOTE | 2020-11-09 15:49 | NUR ---
DAUGHTER AT BEDSIDE
--- NOTE | 2020-11-09 19:00 | NUR ---
RECEIVED BEDSIDE REPORT. ROUNDING COMPLETE. PATIENT IS ALERT AND ORIENTED, RESTING COMFORTABLY. RESPIRATIONS ARE EVEN AND UNLABORED. NO S/S OF DISTRESS. NO C/O PAIN. CALL LIGHT WITHIN REACH. WILL CPOC.
[2020-11-10] VITALS (12 sets, daily range): BP systolic 126–183; BP diastolic 48–96
--- NOTE | 2020-11-10 05:00 | NUR ---
DR. AUSTIN CALLED FOR UPDATE OF ON PATIENT. NEW ORDERS GIVEN TO CONTINUE PD.
[2020-11-10 05:05] LABS: BASOPHILS 0.5 % (0-2); EOSINOPHILS 0.6 % (0-7); HEMATOCRIT 27.7 % (42.0-54.0); HEMOGLOBIN 9.3 g/dL (13.5-17.5); LYMPHOCYTES 17.1 % (15-50); MCH 32.1 pg (26.0-34.0); MCHC 33.4 g/dL (31.0-37.0); MEAN PLATELET VOLUME 7.5 fL (7.4-10.4); MONOCYTES 9.2 % (2-11); NEUTROPHILS 72.6 % (40-80); PLATELET COUNT 315 10x3/uL (130-400); RBC 2.88 10x6/uL (4.20-6.10); RDW 14.7 % (11.5-14.5); WBC 8.8 10x3/uL (4.8-10.8)
[2020-11-10 05:21] LABS: ALBUMIN 1.5 g/dL (3.4-5.0); ANION GAP 18.4 mmol/L (8-16); BILIRUBIN - TOTAL 0.25 mg/dL (0.2-1.3); CALCIUM 8.1 mg/dL (8.5-10.1); CARBON DIOXIDE 23.4 mmol/L (21.0-32.0); CREATININE - SERUM 10.8 mg/dL (0.6-1.3); MAGNESIUM - SERUM 2.1 mg/dL (1.8-2.4); PHOSPHOROUS 8.4 mg/dL (2.5-4.9); POTASSIUM - SERUM 4.8 mmol/L (3.5-5.1); PROTEIN - SERUM 5.3 g/dL (6.4-8.2); VANCOMYCIN - RANDOM 27.5 ug/mL (10.0-20.0)
--- NOTE | 2020-11-10 07:00 | NUR ---
RECEIVED BEDSIDE REPORT ON PATIENT AND ASSUMED CARE. PATIENT LAYING IN BED, ALERT AND ORIENTED X 4, VSS. PATIENT WITH IV 20 GA TO RIGHT FA, NS. DIALYSIS FISTULA TO LEFT FOREARM WITH GOOD BRUIT AND THRILL NOTED. PATIENT ON RA SPO2 98%. CM - NSR RATE 80. NOTED REDNESS AND SWELLING TO RIGHT LOWER EXTREMITY AND SWELLING TO LEFT LOWER EXTREMITY. PATIENT HARD OF HEARING, NO HEARING AIDS AND ONLY HAS ONE OF HIS DENTURES HERE AT THE HOSPITAL. HEAD TO TOE ASSESSMENT COMPLETED.
--- NOTE | 2020-11-10 07:50 | NUR ---
ASSISTED PATIENT UP TO BEDSIDE CHAIR, ASSIST TIMES TWO.
--- NOTE | 2020-11-10 08:19 | NUR ---
DR. BIRD AT ROOM, EXAMINES PATIENT AND SPEAKS TO BOTH PATIENT AND DAUGHTER AT BEDSIDE AND ANSWERS QUESTIONS.
--- NOTE | 2020-11-10 08:22 | NUR ---
PATIENT REQUESTS A SECOND BREAKFAST TRAY, ORDERED FROM NUTRITION.
--- NOTE | 2020-11-10 09:11 | NUR ---
PATIENT ASSISTED OVER TO BEDSIDE COMMODE, DAUGHTER AT BEDSIDE.
--- NOTE | 2020-11-10 09:20 | NUR ---
DR. EATON AT ROOM UPDATED AND EXAMINES PATIENT.
--- NOTE | 2020-11-10 09:42 | NUR ---
PATIENT GIVEN BATH AND BACK TO BEDSIDE CHAIR.
--- NOTE | 2020-11-10 09:53 | NUR ---
PERITONEAL DIALYSIS STARTED TO DRAIN AT 0945.
--- NOTE | 2020-11-10 10:20 | NUR ---
REPORT CALLED TO JOSE F LOGAN RN PATIENT TO TRANSFER TO ROOM 2136 AFTER HEMODIALYSIS IS COMPLETE.
--- NOTE | 2020-11-10 10:58 | NUR ---
PT TO HD AT THIS TIME, VIA WHEELCHAIR
--- NOTE | 2020-11-10 15:00 | NUR ---
Arrived to unit via bed in stable condition from dialysis accompanied by hospital staff and family member, oriented to unit, oriented to room, oriented to bed controls, was transferred from ICU, [place], BLE 1+ edema, meplex on bottom, lung sounds are crackles, dialysis states took off 2500ml of fluid today, awake/alert/oriented, T/R self ad corrine, cont of B/B with use of urinal and bedpan ad corrine, denies pain/other discomfort at this time, call light/phone/water within reach, no s/s of acute distress observed.
--- NOTE | 2020-11-10 19:30 | NUR ---
SPOKE WITH DR. AUSTIN, SHES STATED TO HOLD PD UNTIL SHE SEES PT IN AM, PT SETTING ON SIDE OF BED, AAO X 4, RESP EVEN AND UNLABORED, NO DISTRESS NOTED, CL IN REACH, SR UP X 2.
--- NOTE | 2020-11-11 01:53 | NUR ---
I have reviewed this patient and I concur with the Shift Assessment completed by the Licensed Practical Nurse today this shift.
[2020-11-11 05:18] VITALS: BP 130/58
[2020-11-11 06:09] LABS: BASOPHILS 0.5 % (0-2); EOSINOPHILS 1.7 % (0-7); HEMATOCRIT 30.1 % (42.0-54.0); HEMOGLOBIN 9.9 g/dL (13.5-17.5); LYMPHOCYTES 18.7 % (15-50); MCH 31.7 pg (26.0-34.0); MCV 95.9 fL (80.0-100.0); MEAN PLATELET VOLUME 7.2 fL (7.4-10.4); MONOCYTES 14.2 % (2-11); NEUTROPHILS 64.9 % (40-80); PLATELET COUNT 326 10x3/uL (130-400); RBC 3.14 10x6/uL (4.20-6.10); RDW 14.4 % (11.5-14.5); WBC 8.7 10x3/uL (4.8-10.8)
[2020-11-11 06:34] LABS: ALBUMIN 1.5 g/dL (3.4-5.0); ANION GAP 13.8 mmol/L (8-16); BILIRUBIN - TOTAL 0.27 mg/dL (0.2-1.3); CALCIUM 8.1 mg/dL (8.5-10.1); CREATININE - SERUM 6.9 mg/dL (0.6-1.3); POTASSIUM - SERUM 3.8 mmol/L (3.5-5.1); PROTEIN - SERUM 5.4 g/dL (6.4-8.2); VANCOMYCIN - RANDOM 25.5 ug/mL (10.0-20.0)
--- NOTE | 2020-11-11 07:40 | NUR ---
Lying in bed, awake/alert/oriented, T/R self ad corrine, cont of B/B with BRPs with assist ad corrine, c/o sharp RLE pain rated 5/10, medicated as ordered (see MAR), call light/phone/water within reach, no s/s of acute distress observed.
[2020-11-11 07:54] VITALS: BP 140/55
--- NOTE | 2020-11-11 08:32 | OP ---
PATIENT NAME: STEVE RADFORD MEDICAL RECORD: [id number] :31 LOCATION:D. D.2136 ADMISSION DATE:11/05/20 SURGEON: MICHI CALDERON MD DATE OF OPERATION: 11/08/2020 PROCEDURE: Left heart catheterization, selective coronary angiography, right femoral artery approach. CATHETERS: A 5-Welsh sheath, 5/4 left and right David, 5/4 pig. The procedure was well tolerated. The patient's femoral sheath removed. ExoSeal device was placed. FINDINGS: Left ventriculography 30-degree VERDUGO view shows mild global hypokinesis, EF mildly reduced at 40% to 45%. CORONARY ANATOMY: LEFT MAIN: Left main has a 50% stenosis. LAD: LAD has about 90% proximal stenosis and is seen filling via competitive flow from the WEI. CIRCUMFLEX: Free of disease. RIGHT CORONARY: Totally occluded proximally. WEI to LAD is widely patent throughout its course with good flow distally. No evidence of post-anastomotic stenosis. Saphenous vein graft to right is widely patent, noticed post-anastomotic stenosis. IMPRESSION: Mildly decreased LV systolic function. Patent bypass grafts. For medical management of cardiomyopathy at this point. TRANSINT:[id number] Voice Confirmation ID: [id number] DOCUMENT ID: [id number] MICHI CALDERON MD at 0832 CC: [id number] DICTATION DATE: 11/08/20 144 TOUR AGENT: 11/08/20 2228 ADM IN [facility] [address] [id number]
[2020-11-11 12:29] VITALS: BP 107/62
--- NOTE | 2020-11-11 12:55 | NUR ---
O2 sat is 83% on RA, placed on O2 @ 2lpm/nc, after a minute O2 sat up to 98%
--- NOTE | 2020-11-11 14:00 | NUR ---
Pt found kneeling on floor with upper body propped up on chair at bedside, assisted pt up to bed, pt states "I knocked my water off the table when I was getting up, slipped in the water, and caught myself by leaning over my chair", denies pain/injury, examined by this nurse with no redness/swelling/skin tears found, repositioned pt in bed with O2 on and [place] bed alarm in place and turned on.
--- NOTE | 2020-11-11 14:10 | NUR ---
Nutrition Reassessment/Follow-up: Eating well. HD yesterday (-2250 mL). PO4 8.4 (11/10); Tums with meals. Diet: Renal PO intake: 88% avg x 4 meals Wt: 190# (11/10) Labs noted: K+ 3.8, Ca 8.1, PO4 8.4 (11/10), Alb 1.5 Meds noted: Tums, Bumex, Florajen, Nephrovite, Folate, Pepcid, Colace Est needs: 7961-0696 kcal/day (30-35 kcal/kg actual BW) 105-110 g protein/day (1.2-1.3 g/kg actual BW) Fluid: 1000 mL + UOP or per MD Nutrition Diagnosis: -Altered nutrition-related lab values R/T ESRD on HD AEB BUN 36, Cre 6.9, GFR 8, PO4 8.4. Nutrition Goals: -PO intake >=75% avg of meals/snacks. -Meet est fluid needs without fluid overload. -Stable dry wt. Nutrition Intervention: -Encourage PO intake and honor food preferences within diet restrictions. -Monitor wt. -RD will follow up within 5-7 days if pt still admitted.
--- NOTE | 2020-11-11 18:55 | NUR ---
REPORT RECEIVED, PT CARE ASSUMED. PT OUT OF ROOM, IN DIALYSIS AT THIS TIME.
--- NOTE | 2020-11-11 19:45 | NUR ---
PT BACK TO ROOM FROM DIALYSIS VIA BED ACCOMPANIED BY HOSPITAL STAFF.
[2020-11-11 20:37] VITALS: BP 118/66
[2020-11-12] VITALS: BP 154/60
--- NOTE | 2020-11-12 06:30 | NUR ---
PT C/O PAIN TO RT FA PIV WITH BEGINNING OF SCHEDULED IVPB ROCEPHIN. DC'D, TIP INTACT. NEW PIV TO RT FA 22 GA, X1 ATTEMPT. PT TOLERATED WELL, ABX INFUSING WITHOUT ISSUE.
[2020-11-12 06:50] LABS: HEMATOCRIT 27.1 % (42.0-54.0); MCH 31.9 pg (26.0-34.0); MCHC 33.3 g/dL (31.0-37.0); MCV 95.7 fL (80.0-100.0); MEAN PLATELET VOLUME 7.2 fL (7.4-10.4); PLATELET COUNT 274 10x3/uL (130-400); RBC 2.84 10x6/uL (4.20-6.10); RDW 14.3 % (11.5-14.5); WBC 8.2 10x3/uL (4.8-10.8)
--- NOTE | 2020-11-12 07:00 | NUR ---
REPORT RECEIVED. PATIENT IS LYING IN BED RESTING WITH EYES CLOSED. NO S/S OF DISTRESS OBSERVED, RR EVEN AND UNLABORED ON 2L O2 VIA NC. PIV TO RT FA, PATENT, INFUSING ABX AT THIS TIME. NO NEED EXPRESSED. CALL LIGHT WITH IN REACH, BED LOCKED AND LOWERED. BED ALARM ON. WILL CPOC.
[2020-11-12 07:34] LABS: ANION GAP 13.6 mmol/L (8-16); BILIRUBIN - TOTAL 0.36 mg/dL (0.2-1.3); CARBON DIOXIDE 29.1 mmol/L (21.0-32.0); LYMPHOCYTES 31 % (15-50); MAGNESIUM - SERUM 1.9 mg/dL (1.8-2.4); MONOCYTES 3 % (2-11); NEUTROPHILS 63 % (40-80); PLATELET ESTIMATE NORMAL; POTASSIUM - SERUM 3.7 mmol/L (3.5-5.1); PROTEIN - SERUM 5.1 g/dL (6.4-8.2)
[2020-11-12 07:52] VITALS: BP 105/20
[2020-11-12 08:09] LABS: ALBUMIN 2.3 g/dL (3.4-5.0); CREATININE - SERUM 4.9 mg/dL (0.6-1.3)
[2020-11-12] MEDS ORDERED: ADOXA100 MG PO (10:40)
[2020-11-12 11:11] VITALS: BP 148/71
--- NOTE | 2020-11-12 11:37 | NUR ---
I have reviewed this patient and I concur with the Shift Assessment completed by the Licensed Practical Nurse today this shift.
--- NOTE | 2020-11-12 12:03 | NUR ---
STARTED PD @ 1131, FILL COMPLETED @ 1148 DWELLING BEGAN 1147
--- NOTE | 2020-11-12 14:47 | NUR ---
PATIENT IS NOT DISCHARGING. CALLED MORPHOLOGY TEACHER GETACHEW FOR ORDERED PD FLUID.
--- NOTE | 2020-11-12 15:19 | MORECARE ---
CASE MANAGEMENT DISCHARGE SUMMARY PATIENT: STEVE RADFORD UNIT: [id number] ADM DATE: 11/05/20 AGE: 85 : 33 SEX: M ROOM/BED: D.2136 AUTHOR: ANNA LOPEZ PHYSICIAN: REFERRING PHYSICIAN: KENDELL CAPONE MD DATE OF SERVICE: 11/12/20 Case Management Discharge Planning Summary COMMENTS ENTERED DATE: 11/12/20 15:16 CT COMMENT TYPE: Discharge Planning REVIEWER: Jelani Del Rio CM met with patient and daughter to complete DC plan and to evaluate needs. Patient is dependent for Medication management, feeding, and dressing and lives with his daughter, Reina Zeng, . Patient stated that his home is safe and has electricity and running water. Patient's daughter stated that he has no problems paying for medications and he fills his medications at [facility] on [facility] [address]. Patient's daughter stated that his primary care physician is Dr. Mendoza. At discharge, the patient plans to return home and feels this is a safe discharge. CM discussed availability of home health, rehab services, and medical equipment. Patient and daughter declined SNF, IPR, and DME but would like [facility]. TERESA signed for [facility] and placed in chart. Patient's daughter stated they have a walker and dialysis cycler at home. Patient and daughter voiced no other needs at this time and is satisfied with DC plan. Transportation provider at discharge will be with his daughter, Reina. DC IMM delivered, explained, signed by the patient, and placed in chart. Signed form also left with the patient. CM will continue to follow and will assist as needed with dc plans/needs DCP REVIEW SUMMARY ANTICIPATED D/C DATE: EXPECTED LOS : CASE STATUS: DCP Initiated INITIAL REVIEW: 11/05/2020 INITIAL REVIEWER: Jelani Del Rio FINAL DISCHARGE DISPOSITION: : FINAL REVIEWER: FINAL REVIEW DATE: DCP Focus Questions & Answers DCP Evaluation QUESTION: ANSWER Patient and/or caregiver agree upon recommended discharge plan? : Yes Family / Caregiver's ability to cope with chronic illness: : a. Adequate (ability to meet patient's medical needs, ensures patient attends medical appts.) Patient's current cognitive status: : Intermittently confused / memory changes Patient's ability to cope with chronic illness : d. No chronic illness Patient gives permission to discuss discharge plans with: (name, relationship and number) : daughter, Reina Zeng, Does the patient have the ability to pay for or attain post discharge needs / services? : Yes Functional screen assessment: : Unable to manage ADLs without immediate ongoing assistance Family / Caregiver's ability to cope with chronic illness: : a. Adequate (ability to meet patient's medical needs, ensures patient attends medical appts.) Physical Status: : Partial care dependence Equipment needed for post hospitalization: : None Is there a likelihood that the patient will require additional services to return to the preadmission environment? : Yes Living Arrangements: : Home with Extended Family Partial Dependence, assistance required for: : Eating Partial Dependence, assistance required for: : Dressing Partial Dependence, assistance required for: : Bathing Partial Dependence, assistance required for: : Ambulation / Mobility Baseline cognitive status: : Intermittently confused / memory changes Physical environment modification needed / anticipated for discharge: : No Medication Management: : Patient states can read and understand medication labels Medication Management: : Patient states can afford medications Pharmacy name(s): : [facility] on [address] Does Patient have transportation to get home and to follow-up medical appointments when discharged from the hospital? : Yes Would patient like to participate in any Care Coordination programs (if applicable): : Not applicable Does the patient have electricity at home? : Yes Does the patient have running water in their house? : Yes Equipment in use: : Walker - Rolling Equipment in use: : Other Other Equipment comments: : Dialyis Cycler for Peritoneal Dialysis Mental health screen: : No mental health history DCP Re-evaluation QUESTION: ANSWER Would patient like to participate in any Care Coordination programs (if applicable): : Not applicable PATIENT: STEVE RADFORD ENCOUNTER: [id number] MEDICAL RECORD#: [id number] ADMISSION DATE: 11/05/2020 DISCHARGE DATE: ATTENDING MD: KENDELL DE SANTIAGO : AGE: 85 MARITAL STATUS: M DC PLAN ID: [id number] FACILITY: [facility] PRINTED ON: 11/12/20 15:19 CT All edits/amendments must be made on the electronic document DICTATION DATE: 11/12/201518 CITY DISPATCH SUPERVISOR: SALVATORE 11/12/201518 RPT#: [id number] DC DATE: STATUS: ADM IN [facility] [address] [place] [address] END OF REPORT
--- NOTE | 2020-11-12 18:45 | NUR ---
REQUESTED FOR PHARMACY TO RESCHEDULE/RETIME PD FLUID TO GET BACK TO A Q4 SCHEDULE SINCE PATIENT DID NOT DC PLANNED. PHARMACY DISREGARDED REQUEST. WILL REPORT TO ONCOMING SHIFT THAT NEXT PD TIME SHOULD BE 1999.
[2020-11-12 20:00] VITALS: BP 153/62
--- NOTE | 2020-11-12 21:56 | NUR ---
INITIAL ROUNDS COMPLETED AT 1915HRS. PT RESTING WITH EYES CLOSED. RESP EVEN AND REGULAR. ASSESSMENT COMPLETED AT 1954 HRS. VSS. ALERT AND ORIENTED TO PERSON, PLACE AND TIME. BALL. PALPABLE PERIPHERAL PULSES. IV TO RFA SL. L ARM FISTULA WIT BRUIT AND THRILL. PD CATH TO ABD CLEAN,DRY AND INTACT. PD EXCHAGE INITAILTED AT 2054 HRS. PM MEDS GIVEN. PT SWALLOWED MEDS WITHOUT DIFFICULTY. PT UP TO BSC AT 2130 HRS WITH MODERATE BROWN BM NOTED. ASSISTED BACK TO BED. PD DRAINING SLOWLY. SR UP X1, CALL LIGHT WTHIN REACH.
--- NOTE | 2020-11-12 22:54 | NUR ---
SPOKE WITH Jonny DAY APRN FROM [facility]. INFORMED HER OF DIFFICULTY OF DRAINING PT, 1600CC OUT LAST 2 EXCHANGES, YELLOW IN COLOR AND NO CLOUDINESS NOTED. ALSO INFORMED THAT PT DID HAVE A BM. NEW ORDERS RECEIVED AND NOTED.
--- NOTE | 2020-11-13 00:21 | NUR ---
PT RESTING WITH EYES CLOSED. RESP EVEN AND REGULAR. SR UP X1,CALL LIGHT WITHIN REACH AND BED ALARM ON.
[2020-11-13 01:38] VITALS: BP 173/74
--- NOTE | 2020-11-13 02:15 | NUR ---
1/2 CUP COFFE GIVEN PER REQUEST. NO CHANGE IN STATUS NOTED. SR UP X1,CALL LIGHT WITHIN REACH AND BED ALARM ON.
--- NOTE | 2020-11-13 04:35 | NUR ---
PT RESTING WITH EYES CLOSED. RESP EVEN AND REGULAR. SR U P X1, CALL LIGHT WITHIN REACH AND BED ALARM ON.
--- NOTE | 2020-11-13 05:29 | NUR ---
PD COMPLETED. 2600CC RETURN. PT TOLERATED PROCEDURE WELL.
[2020-11-13 05:39] VITALS: BP 160/68
[2020-11-13 06:11] LABS: EOSINOPHILS 1.2 % (0-7); HEMATOCRIT 28.1 % (42.0-54.0); HEMOGLOBIN 9.3 g/dL (13.5-17.5); LYMPHOCYTES 16.1 % (15-50); MCH 32.1 pg (26.0-34.0); MCHC 33.3 g/dL (31.0-37.0); MCV 96.4 fL (80.0-100.0); MEAN PLATELET VOLUME 7.1 fL (7.4-10.4); MONOCYTES 15.8 % (2-11); NEUTROPHILS 65.9 % (40-80); PLATELET COUNT 289 10x3/uL (130-400); RBC 2.91 10x6/uL (4.20-6.10); RDW 14.8 % (11.5-14.5); WBC 8.1 10x3/uL (4.8-10.8)
[2020-11-13 06:36] LABS: ALBUMIN 2.2 g/dL (3.4-5.0); ANION GAP 11.6 mmol/L (8-16); BILIRUBIN - TOTAL 0.38 mg/dL (0.2-1.3); CALCIUM 8.7 mg/dL (8.5-10.1); CARBON DIOXIDE 29.7 mmol/L (21.0-32.0); CREATININE - SERUM 5.6 mg/dL (0.6-1.3); MAGNESIUM - SERUM 1.7 mg/dL (1.8-2.4); POTASSIUM - SERUM 3.3 mmol/L (3.5-5.1); PROTEIN - SERUM 5.8 g/dL (6.4-8.2); VANCOMYCIN - RANDOM 20.6 ug/mL (10.0-20.0)
--- NOTE | 2020-11-13 07:00 | NUR ---
REPORT RECEIVED. PATIENT IS LYING IN BED RESTING WITH EYES CLOSED. NO S/S OF DISTRESS OBSERVED, RR EVEN AND UNLABORED ON 2L O2 VIA NC. PIV TO RT FA, PATENT, SL. NO NEED EXPRESSED. CALL LIGHT WITH IN REACH, BED LOCKED AND LOWERED. BED ALARM ON. WILL CPOC.
[2020-11-13 08:13] VITALS: BP 146/66
--- NOTE | 2020-11-13 11:42 | NUR ---
I have reviewed this patient and I concur with the Shift Assessment completed by the Licensed Practical Nurse today this shift.
[2020-11-13 11:44] VITALS: BP 180/87
--- NOTE | 2020-11-13 17:41 | NUR ---
DISCHARGE PAPERS SIGNED. DC'D PIV WITH CATH TIP INTACT. BALL ENDER ESCORTED PATIENT DOWN TO ER ENTRANCE WITH FAMILY MEMBERS.
--- NOTE | 2020-11-14 09:07 | MORECARE ---
CASE MANAGEMENT DISCHARGE SUMMARY PATIENT: STEVE RADFORD UNIT: [id number] ADM DATE: 11/05/20 AGE: 85 : 33 SEX: M ROOM/BED: D.2136 AUTHOR: ANNA LOPEZ PHYSICIAN: REFERRING PHYSICIAN: KENDELL CAPONE MD DATE OF SERVICE: 11/14/20 Case Management Discharge Planning Summary COMMENTS ENTERED DATE: 11/12/20 15:16 CT COMMENT TYPE: Discharge Planning REVIEWER: Jelani Del Rio CM met with patient and daughter to complete DC plan and to evaluate needs. Patient is dependent for Medication management, feeding, and dressing and lives with his daughter, Reina Zeng, . Patient stated that his home is safe and has electricity and running water. Patient's daughter stated that he has no problems paying for medications and he fills his medications at [facility] on [facility] [address] [facility]. Patient's daughter stated that his primary care physician is Dr. Mendoza. At discharge, the patient plans to return home and feels this is a safe discharge. CM discussed availability of home health, rehab services, and medical equipment. Patient and daughter declined SNF, IPR, and DME but would like [facility]. TERESA signed for [facility] and placed in chart. Patient's daughter stated they have a walker and dialysis cycler at home. Patient and daughter voiced no other needs at this time and is satisfied with DC plan. Transportation provider at discharge will be with his daughter, Reina. DC IMM delivered, explained, signed by the patient, and placed in chart. Signed form also left with the patient. CM will continue to follow and will assist as needed with dc plans/needs DCP REVIEW SUMMARY ANTICIPATED D/C DATE: EXPECTED LOS : CASE STATUS: DCP Initiated INITIAL REVIEW: 11/05/2020 INITIAL REVIEWER: Jelani Del Rio FINAL DISCHARGE DISPOSITION: : FINAL REVIEWER: FINAL REVIEW DATE: DCP Focus Questions & Answers DCP Evaluation QUESTION: ANSWER Patient and/or caregiver agree upon recommended discharge plan? : Yes Family / Caregiver's ability to cope with chronic illness: : a. Adequate (ability to meet patient's medical needs, ensures patient attends medical appts.) Patient's current cognitive status: : Intermittently confused / memory changes Patient's ability to cope with chronic illness : d. No chronic illness Patient gives permission to discuss discharge plans with: (name, relationship and number) : daughter, Reina Zeng, Does the patient have the ability to pay for or attain post discharge needs / services? : Yes Functional screen assessment: : Unable to manage ADLs without immediate ongoing assistance Family / Caregiver's ability to cope with chronic illness: : a. Adequate (ability to meet patient's medical needs, ensures patient attends medical appts.) Physical Status: : Partial care dependence Equipment needed for post hospitalization: : None Is there a likelihood that the patient will require additional services to return to the preadmission environment? : Yes Living Arrangements: : Home with Extended Family Partial Dependence, assistance required for: : Eating Partial Dependence, assistance required for: : Dressing Partial Dependence, assistance required for: : Bathing Partial Dependence, assistance required for: : Ambulation / Mobility Baseline cognitive status: : Intermittently confused / memory changes Physical environment modification needed / anticipated for discharge: : No Medication Management: : Patient states can read and understand medication labels Medication Management: : Patient states can afford medications Pharmacy name(s): : [facility] on [address] Does Patient have transportation to get home and to follow-up medical appointments when discharged from the hospital? : Yes Would patient like to participate in any Care Coordination programs (if applicable): : Not applicable Does the patient have electricity at home? : Yes Does the patient have running water in their house? : Yes Equipment in use: : Walker - Rolling Equipment in use: : Other Other Equipment comments: : Dialyis Cycler for Peritoneal Dialysis Mental health screen: : No mental health history DCP Re-evaluation QUESTION: ANSWER Would patient like to participate in any Care Coordination programs (if applicable): : Not applicable PATIENT: STEVE RADFORD ENCOUNTER: [id number] MEDICAL RECORD#: [id number] ADMISSION DATE: 11/05/2020 DISCHARGE DATE: 11/13/2020 ATTENDING MD: KENDELL DE SANTIAGO : AGE: 85 MARITAL STATUS: M DC PLAN ID: [id number] FACILITY: [facility] PRINTED ON: 11/14/20 9:07 CT All edits/amendments must be made on the electronic document DICTATION DATE: 11/14/20906 SMALL BUSINESS REPRESENTATIVE: SALVATORE 11/14/20906 RPT#: [id number] DC DATE:11/13/20 STATUS: DIS IN [facility] [address] [place] [address] END OF REPORT
== END 2020-11-13 17:45 | disposition home health service (06) | DRG 252 ==
LOC: D.ER 11:06 → D.ICU 12:17 → D.M2 12:17
PROVIDERS: Family Medicine; Internal Medicine; Internal Medicine Cardiovascular Disease; Internal Medicine Interventional Cardiology; Radiology Vascular & Interventional Radiology; Surgery; ADMIT Emergency Medicine; ATTEND Emergency Medicine
PROC: 4A023N8 Measurement of Cardiac Sampling and Pressure, Bilateral, Percutaneous Approach (ICD-10-PCS; 2020-11-08)
PROC: B2121ZZ Fluoroscopy of Single Coronary Artery Bypass Graft using Low Osmolar Contrast (ICD-10-PCS; 2020-11-08)
PROC: B2111ZZ Fluoroscopy of Multiple Coronary Arteries using Low Osmolar Contrast (ICD-10-PCS; 2020-11-08)
PROC: B2151ZZ Fluoroscopy of Left Heart using Low Osmolar Contrast (ICD-10-PCS; 2020-11-08)
PROC: B51W1ZZ Fluoroscopy of Dialysis Shunt/Fistula using Low Osmolar Contrast (ICD-10-PCS; 2020-11-08)
PROC: 037C3ZZ Dilation of Left Radial Artery, Percutaneous Approach (ICD-10-PCS; principal; 2020-11-08 13:35)
DX: T82.858A Stenosis of other vascular prosthetic devices, implants and grafts, initial encounter (principal); G93.41 Metabolic encephalopathy; N18.6 End stage renal disease; I50.23 Acute on chronic systolic (congestive) heart failure; J96.01 Acute respiratory failure with hypoxia; I13.2 Hypertensive heart and chronic kidney disease with heart failure and with stage 5 chronic kidney disease, or end stage renal disease; L03.115 Cellulitis of right lower limb; I48.92 Unspecified atrial flutter; T85.691A Other mechanical complication of intraperitoneal dialysis catheter, initial encounter; I95.9 Hypotension, unspecified; Z99.2 Dependence on renal dialysis; D63.1 Anemia in chronic kidney disease; F03.90 Unspecified dementia, unspecified severity, without behavioral disturbance, psychotic disturbance, mood disturbance, and anxiety; E78.5 Hyperlipidemia, unspecified; I48.91 Unspecified atrial fibrillation; I25.10 Atherosclerotic heart disease of native coronary artery without angina pectoris; K21.9 Gastro-esophageal reflux disease without esophagitis; M19.90 Unspecified osteoarthritis, unspecified site; G89.29 Other chronic pain; M54.9 Dorsalgia, unspecified; I25.5 Ischemic cardiomyopathy; J44.9 Chronic obstructive pulmonary disease, unspecified; E87.6 Hypokalemia

== ENCOUNTER 2020-11-17 11:44 | Inpatient (IN) | payer MEDICARE ==
[~2020-11-17] VITALS: Ht 182.9 cm; Wt 85.0 kg
[2020-11-17] VITALS (21 sets, daily range): BP systolic 69–149; BP diastolic 32–81; BMI 22.1
[~2020-11-17 11:44] MED LIST changes: -ACETAMINOPHEN500 M1 PO; +ADOXA100 MG PO; -CHRONULAC30 ML; +CHRONULAC30 ML PO; +TYLENOL PM PO
[2020-11-17 13:05] LABS: ALBUMIN 1.7 g/dL (3.4-5.0); ALKALINE PHOSPHATASE 75 U/L (30-120); ALT (SGPT) 15 U/L (10-68); BILIRUBIN - TOTAL 0.33 mg/dL (0.2-1.3); CALC OSMOLALITY 293 mosm/kg (275-300); CALCIUM 8.2 mg/dL (8.5-10.1); CARBON DIOXIDE 28.8 mmol/L (21.0-32.0); CHLORIDE - SERUM 104 mmol/L (98-107); CKMB 0.5 U/L (0.0-3.6); CREATINE KINASE 13 UL (21-232); CREATININE - SERUM 7.3 mg/dL (0.6-1.3); GLUCOSE 132 mg/dL (74-106); PROTEIN - SERUM 5.1 g/dL (6.4-8.2); SODIUM 143 mmol/L (136-145); UREA NITROGEN 32 mg/dL (7-18); eGFR NON AFRICAN AMERICAN 7 mL/min (90-120)
[2020-11-17 13:08] LABS: POTASSIUM - SERUM 2.9 mmol/L (3.5-5.1); TROPONIN-I 0.076 ng/mL (0.000-0.060)
[2020-11-17 13:14] LABS: APTT 35.7 SECONDS (22.8-39.4); INR 1.23 (0.85-1.17); PROTIME 14.4 SECONDS (11.6-15.0)
[2020-11-17 13:22] LABS: BASOPHILS 1.2 % (0-2); EOSINOPHILS 1.9 % (0-7); HEMATOCRIT 26.2 % (42.0-54.0); HEMOGLOBIN 8.5 g/dL (13.5-17.5); LYMPHOCYTES 15.4 % (15-50); MCH 31.6 pg (26.0-34.0); MCHC 32.4 g/dL (31.0-37.0); MCV 97.6 fL (80.0-100.0); MEAN PLATELET VOLUME 7.1 fL (7.4-10.4); MONOCYTES 14.7 % (2-11); NEUTROPHILS 66.8 % (40-80); RBC 2.69 10x6/uL (4.20-6.10); RDW 15.1 % (11.5-14.5); WBC 9.1 10x3/uL (4.8-10.8)
[2020-11-17 13:38] LABS: PLATELET COUNT 396 10x3/uL (130-400)
--- NOTE | 2020-11-17 14:10 | NUR ---
NEW 20G PIV STARTED TO THE RIGHT WRIST X1 STICK PATIENT TOLERATED WELL.
--- NOTE | 2020-11-17 19:05 | NUR ---
PT FROM ER VIA STRETCHER, PT MOVED TO BED, NO DISTRESS NOTED, RESP EVEN AND UNLABORED, CL IN REACH, SR UP X 2.
[2020-11-18 00:33] LABS: BILIRUBIN NEGATIVE (NEGATIVE); KETONE NEGATIVE (NEGATIVE); NITRITE NEGATIVE (NEGATIVE); UROBILINOGEN NORMAL mg/dL (< 2)
[2020-11-18 00:34] LABS: BACTERIA FEW HPF (NONE SEEN); SQUAMOUS EPITHELIAL 0-5 HPF (0-4); WHITE CELLS - URINE 0-5 HPF (0-1)
[2020-11-18 01:24] LABS: CKMB 0.6 U/L (0.0-3.6); CREATINE KINASE 22 UL (21-232)
[2020-11-18 01:25] LABS: TROPONIN-I 0.068 ng/mL (0.000-0.060)
--- NOTE | 2020-11-18 01:41 | NUR ---
I have reviewed this patient and I concur with the Shift Assessment completed by the Licensed Practical Nurse today this shift.
[2020-11-18 03:45] VITALS: BP 138/62
[2020-11-18 05:06] VITALS: BP 132/50
--- NOTE | 2020-11-18 07:00 | NUR ---
PT LYING IN BED WITH HOB ELEVATED 30 DEGRESS. RESP EVEN AND UNLABORED. AAOX4. ASSESSMENT COMPLETED. DENIES NEEDS AT THIS TIME. CLIR. BED IN LOWEST POSITION. SIDE RAILS X2
[2020-11-18 08:49] LABS: EOSINOPHILS 3.2 % (0-7); HEMOGLOBIN 9.5 g/dL (13.5-17.5); LYMPHOCYTES 23.1 % (15-50); MCH 31.9 pg (26.0-34.0); MCHC 32.8 g/dL (31.0-37.0); MCV 97.1 fL (80.0-100.0); MONOCYTES 14.6 % (2-11); NEUTROPHILS 58.1 % (40-80); PLATELET COUNT 384 10x3/uL (130-400); RBC 2.99 10x6/uL (4.20-6.10); RDW 14.8 % (11.5-14.5); WBC 7.4 10x3/uL (4.8-10.8)
[2020-11-18 08:55] VITALS: BP 124/52
[2020-11-18 09:05] LABS: CHLORIDE - SERUM 104 mmol/L (98-107); CREATINE KINASE 19 UL (21-232); MAGNESIUM - SERUM 1.9 mg/dL (1.8-2.4)
[2020-11-18 09:31] LABS: ALBUMIN 2.2 g/dL (3.4-5.0); ALKALINE PHOSPHATASE 87 U/L (30-120); ALT (SGPT) 15 U/L (10-68); BILIRUBIN - TOTAL 0.47 mg/dL (0.2-1.3); CALC OSMOLALITY 297 mosm/kg (275-300); CALCIUM 8.9 mg/dL (8.5-10.1); CKMB 1.2 U/L (0.0-3.6); CREATININE - SERUM 7.8 mg/dL (0.6-1.3); GLUCOSE 106 mg/dL (74-106); PHOSPHOROUS 4.5 mg/dL (2.5-4.9); POTASSIUM - SERUM 3.8 mmol/L (3.5-5.1); PROTEIN - SERUM 5.9 g/dL (6.4-8.2); SODIUM 144 mmol/L (136-145); UREA NITROGEN 42 mg/dL (7-18); VANCOMYCIN - RANDOM 23.7 ug/mL (10.0-20.0); eGFR NON AFRICAN AMERICAN 7 mL/min (90-120)
[2020-11-18 09:32] LABS: TROPONIN-I 0.072 ng/mL (0.000-0.060)
[2020-11-18 10:37] VITALS: Ht 182.9 cm; Wt 85.0 kg
[2020-11-18 12:00] VITALS: BP 150/64
--- NOTE | 2020-11-18 14:03 | NUR ---
I have reviewed this patient and I concur with the Shift Assessment completed by the Licensed Practical Nurse today this shift.
--- NOTE | 2020-11-18 19:30 | NUR ---
PT IN BED, EYES CLOSED, RESP EVEN AND UNLABORED, NO DISTRESS NOTED, CL IN REACH, SR UP X 2.
[2020-11-18 20:23] VITALS: BP 124/52
[2020-11-18 23:44] VITALS: BP 146/56
[2020-11-19 04:59] VITALS: BP 146/99
[2020-11-19 07:07] LABS: ALBUMIN 2.4 g/dL (3.4-5.0); ANION GAP 18.6 mmol/L (8-16); BILIRUBIN - TOTAL 0.38 mg/dL (0.2-1.3); CARBON DIOXIDE 27.1 mmol/L (21.0-32.0); CREATININE - SERUM 7.7 mg/dL (0.6-1.3); MAGNESIUM - SERUM 1.9 mg/dL (1.8-2.4); PHOSPHOROUS 4.7 mg/dL (2.5-4.9); POTASSIUM - SERUM 3.7 mmol/L (3.5-5.1); PROTEIN - SERUM 6.6 g/dL (6.4-8.2); VANCOMYCIN - RANDOM 22.3 ug/mL (10.0-20.0)
[2020-11-19 07:14] LABS: BASOPHILS 1.4 % (0-2); EOSINOPHILS 3.1 % (0-7); HEMATOCRIT 30.7 % (42.0-54.0); HEMOGLOBIN 10.2 g/dL (13.5-17.5); MCHC 33.1 g/dL (31.0-37.0); MCV 96.9 fL (80.0-100.0); MEAN PLATELET VOLUME 7.1 fL (7.4-10.4); MONOCYTES 13.9 % (2-11); NEUTROPHILS 62.6 % (40-80); RBC 3.17 10x6/uL (4.20-6.10); RDW 15.1 % (11.5-14.5); WBC 7.4 10x3/uL (4.8-10.8)
[2020-11-19 07:34] LABS: PLATELET COUNT 484 10x3/uL (130-400)
--- NOTE | 2020-11-19 08:00 | NUR ---
PT RECEIVED ASLEEP IN BED, AROUSE TO VOICE. NO NEEDS STATED AT PRESENT.
[2020-11-19 08:55] VITALS: BP 117/74; BP 123/73
--- NOTE | 2020-11-19 09:45 | NUR ---
PT'S PD FINISHED. MEDS GIVEN, ASKING FOR SOMETHING FOR BM. COLACE GIVEN BUT TAKES LACTULOSE AT HOME ACCORDING TO MED REC.
[2020-11-19 11:51] VITALS: BP 120/74
[2020-11-19 15:54] VITALS: BP 122/55
[2020-11-19 20:05] VITALS: BP 123/41
--- NOTE | 2020-11-19 20:10 | CN ---
PATIENT NAME:STEVE RADFORD MEDICAL RECORD: [id number] : 31 LOCATION:[facility] D.2139 ADMIT DATE: 11/17/20 ACCOUNT: [id number] CONSULTING PHYSICIAN: MICHI CALDERON MD REFERRING PHYSICIAN: JOHANNA HERNANDEZ MD DATE OF CONSULTATION: 11/18/2020 HISTORY OF PRESENT ILLNESS: An 85-year-old gentleman well known to me with a history of coronary artery disease status post coronary artery bypass grafting. Cath within the last week with patent grafts, and LV function mildly reduced. Mitigating factors, he does have a history of intermittent hypotension making myopathy management somewhat challenging. Admitted with possible pneumonitis, volume overload, hypotension. Pressure is improved. He is maintained on a low dose of ProAmatine. We are asked to see him concerning his cardiovascular status. PAST MEDICAL HISTORY: Includes history of; 1. Chronic renal insufficiency. 2. Cardiomyopathy as described above. 3. Coronary artery disease. 4. Dyslipidemia. MEDICATIONS: Include Pepcid 40 mg p.o. daily, docusate 100 mg daily, tramadol 50 b.i.d., aspirin 81 daily, simvastatin 40 daily, Zetia 10 daily, Plavix 75 daily, ProAmatine 5 daily. ALLERGIES: OXAPROZIN. SOCIAL HISTORY: Nonsmoker, nondrinker, does fairly well for 85 years of age as far as ADLs. REVIEW OF SYSTEMS: The patient reports easy bruising but reports no swollen glands. The patient reports no fever, no night sweats, no significant weight gain, no significant weight loss. No significant exercise tolerance. The patient reports no dry eyes, no irritation, no vision change. Patient reports no difficulty hearing and no ear pain. Patient reports no frequent nose bleeds or nose and sinus problems. Patient reports on arm pain on exertion. No shortness of breath while lying down. No history of heart murmur. Patient reports no cough, no wheezing or coughing up blood. Patient reports no abdominal pain, no vomiting. Normal appetite. No diarrhea and not vomiting blood. No nausea and no constipation. Patient reports no incontinence. No difficulty urinating. No hematuria. No increased frequency. Patient reports no muscle aches. No weakness, no arthralgias, no back pain. No swelling of the extremities. Patient reports no abnormal mole, no jaundice, no rashes. Reports no loss of consciousness. No weakness and no numbness. No seizures, dizziness, or headaches. The patient reports no depression, no sleep disturbance, feeling safe in a relationship and no alcohol abuse. Patient reports on fatigue. Reports no runny nose or sinus pressure. No itching, no hives, and no frequent sneezing. PHYSICAL EXAMINATION: GENERAL: Elderly gentleman in no acute distress, appears stated age. VITAL SIGNS: Currently 124/52, pulse 97 and regular. HEENT: Normocephalic, atraumatic. NECK: No bruits were noted. CONSULT REPORT [id number] STEVE RADFORD HEART: Regular, II/ systolic ejection murmur. LUNGS: Good air excursion. ABDOMEN: Soft and nontender. EXTREMITIES: Pulses decreased 1+. There is no edema. NEUROLOGIC: Grossly intact. IMPRESSION: Volume overload, cardiomyopathy, coronary artery disease. EF is only mildly reduced. Might benefit from increase in ProAmatine for the alpha agonist to take effect, increase pressures, may mobilize more volume via dialysis. At some point in time, given his negative effect on pressure, could consider Farxiga. Given age, renal insufficiency, etc., I do not think he would be an excellent candidate for digoxin at this point. Further recommendations based on clinical course. TRANSINT:[id number] Voice Confirmation ID: [id number] DOCUMENT ID: [id number] MICHI CALDERON MD at 2009 CC: [id number] DICTATION DATE: 11/18/20 1047 FAMILY LITERACY COORDINATOR: 11/18/20 1205 ADM IN [facility] [id number] [place] [address]
[2020-11-20 00:51] VITALS: BP 155/101
[2020-11-20 06:34] VITALS: BP 155/101
[2020-11-20 08:02] VITALS: BP 111/32
[2020-11-20 08:03] LABS: BASOPHILS 1.3 % (0-2); EOSINOPHILS 2.4 % (0-7); HEMATOCRIT 29.4 % (42.0-54.0); HEMOGLOBIN 9.8 g/dL (13.5-17.5); MCH 32.4 pg (26.0-34.0); MCHC 33.3 g/dL (31.0-37.0); MCV 97.2 fL (80.0-100.0); MONOCYTES 14.5 % (2-11); NEUTROPHILS 63.8 % (40-80); PLATELET COUNT 456 10x3/uL (130-400); RBC 3.02 10x6/uL (4.20-6.10); RDW 15.1 % (11.5-14.5); WBC 7.5 10x3/uL (4.8-10.8)
--- NOTE | 2020-11-20 08:03 | NUR ---
PT RECEIVED AWAKE AND ALERT WATCHING TV. STATES SLEPT WELL, NO COMPLAINTS.
[2020-11-20 08:14] LABS: ALBUMIN 2.1 g/dL (3.4-5.0); BILIRUBIN - TOTAL 0.4 mg/dL (0.2-1.3); CALCIUM 8.7 mg/dL (8.5-10.1); CARBON DIOXIDE 29.3 mmol/L (21.0-32.0); CREATININE - SERUM 7.6 mg/dL (0.6-1.3); MAGNESIUM - SERUM 1.9 mg/dL (1.8-2.4); PHOSPHOROUS 4.2 mg/dL (2.5-4.9); POTASSIUM - SERUM 3.3 mmol/L (3.5-5.1); PROTEIN - SERUM 6.3 g/dL (6.4-8.2); URIC ACID 4.8 mg/dL (2.6-7.2); VANCOMYCIN - RANDOM 20.8 ug/mL (10.0-20.0)
[2020-11-20] MEDS ORDERED: DOXYCYCLINE HY100 M2 PO (09:41)
[2020-11-20 16:11] VITALS: BP 150/79
--- NOTE | 2020-11-20 16:25 | NUR ---
PT BACK FROM MRI. DISCHARGE INSTRUCTIONS REVIEWED AND SIGNED WITH DAUGHTER IN ROOM. IV REMOVED AND TELEMETRY RETURNED. PD CATH DRAINED PRIOR TO LEAVING.
--- NOTE | 2020-11-20 18:41 | MORECARE ---
CASE MANAGEMENT DISCHARGE SUMMARY PATIENT: STEVE RADFORD UNIT: [id number] ADM DATE: 11/17/20 AGE: 85 : 33 SEX: M ROOM/BED: D.2139 AUTHOR: JESSICA,DOC PHYSICIAN: REFERRING PHYSICIAN: JOHANNA HERNANDEZ MD DATE OF SERVICE: 11/20/20 Case Management Discharge Planning Summary DCP REVIEW SUMMARY ANTICIPATED D/C DATE: 11/20/2020 EXPECTED LOS : 3 CASE STATUS: DCP Initiated INITIAL REVIEW: 11/17/2020 INITIAL REVIEWER: Jelani Del Rio FINAL DISCHARGE DISPOSITION: : FINAL REVIEWER: FINAL REVIEW DATE: DCP Focus Questions & Answers QUESTION: ANSWER : PATIENT: STEVE RADFORD ENCOUNTER: [id number] MEDICAL RECORD#: [id number] ADMISSION DATE: 11/17/2020 DISCHARGE DATE: 11/20/2020 ATTENDING MD: JOHANNA GONSALEZ : AGE: 85 MARITAL STATUS: M DC PLAN ID: [id number] FACILITY: [facility] PRINTED ON: 11/20/20 18:41 CT All edits/amendments must be made on the electronic document DICTATION DATE: 11/20/201840 [employer] OPER[employer] SPECIALIST: SALVATORE 11/20/201840 RPT#: [id number] DC DATE:11/20/20 STATUS: DIS IN [facility] [address] [place] [address] END OF REPORT
--- NOTE | 2020-11-20 18:52 | MORECARE ---
CASE MANAGEMENT DISCHARGE SUMMARY PATIENT: STEVE RADFORD UNIT: [id number] ADM DATE: 11/17/20 AGE: 85 : 33 SEX: M ROOM/BED: D.2139 AUTHOR: ANNA LOPEZ PHYSICIAN: REFERRING PHYSICIAN: JOHANNA HERNANDEZ MD DATE OF SERVICE: 11/20/20 Case Management Discharge Planning Summary COMMENTS ENTERED DATE: 11/20/20 18:45 CT COMMENT TYPE: Discharge Planning REVIEWER: Jelani Del Rio CM met with patient and his daughter, Reina Zeng to complete DC plan and to evaluate needs. Patient stated that he readmitted because his blood pressure was really low. Patient stated that he was able to obtain his medications after last discharge but unfortunately was not able to keep his follow up appointment. Patient stated that he followed the dc instructions given to him. It appears that this readmission was due to a new condition of hypotension. Patient is dependent for Medication management, feeding, and dressing and lives with his daughter, Reina Zeng, . Patient stated that his home is safe and has electricity and running water. Patient's daughter stated that he has no problems paying for medications and he fills his medications at [facility] on [facility]. Patient's daughter stated that his primary care physician is Dr. Starks. At discharge, the patient plans to return home and feels this is a safe discharge. CM discussed availability of home health, rehab services, and medical equipment. Patient and daughter declined SNF, IPR, and DME but would like to continue [facility]. TERESA signed for [facility] and placed in chart. Patient's daughter stated they have a walker and dialysis cycler at home. Patient and daughter voiced no other needs at this time and is satisfied with DC plan. Transportation provider at discharge will be with his daughter, Reina. DC IMM delivered, explained, signed by the patient, and placed in chart. Signed form also left with the patient. CM will continue to follow and will assist as needed with dc plans/needs. DCP REVIEW SUMMARY ANTICIPATED D/C DATE: 11/20/2020 EXPECTED LOS : 3 CASE STATUS: DCP Initiated INITIAL REVIEW: 11/17/2020 INITIAL REVIEWER: Jelani Del Rio FINAL DISCHARGE DISPOSITION: : FINAL REVIEWER: FINAL REVIEW DATE: DCP Focus Questions & Answers DCP Evaluation QUESTION: ANSWER Patient and/or caregiver agree upon recommended discharge plan? : Yes Patient's current cognitive status: : *Oriented to person, place, situation, time and present Patient's ability to cope with chronic illness : d. No chronic illness Patient gives permission to discuss discharge plans with: (name, relationship and number) : daughterReina, Family / Caregiver's ability to cope with chronic illness: : a. Adequate (ability to meet patient's medical needs, ensures patient attends medical appts.) Does the patient have the ability to pay for or attain post discharge needs / services? : Yes Functional screen assessment: : Basic needs can adequately be met by self Family / Caregiver's ability to cope with chronic illness: : a. Adequate (ability to meet patient's medical needs, ensures patient attends medical appts.) Physical Status: : Partial care dependence Equipment needed for post hospitalization: : None Is there a likelihood that the patient will require additional services to return to the preadmission environment? : No Living Arrangements: : Home with Extended Family Partial Dependence, assistance required for: : Eating Partial Dependence, assistance required for: : Dressing Partial Dependence, assistance required for: : Bathing Partial Dependence, assistance required for: : Ambulation / Mobility Patient with capacity for self-care or can be cared for in same environment as prior to hospitalization? : Yes Baseline cognitive status: : *Oriented to person, place, situation, time and present Physical environment modification needed / anticipated for discharge: : No Medication Management: : Patient states can read and understand medication labels Medication Management: : Patient states can afford medications Pharmacy name(s): : [facility] on [address] Does Patient have transportation to get home and to follow-up medical appointments when discharged from the hospital? : Yes Would patient like to participate in any Care Coordination programs (if applicable): : Not applicable Does the patient have electricity at home? : Yes Does the patient have running water in their house? : Yes Equipment in use: : Walker - Rolling Other Equipment comments: : dialysis cycler Mental health screen: : No mental health history DCP Re-evaluation QUESTION: ANSWER Would patient like to participate in any Care Coordination programs (if applicable): : Not applicable PATIENT: STEVE RADFORD ENCOUNTER: [id number] MEDICAL RECORD#: [id number] ADMISSION DATE: 11/17/2020 DISCHARGE DATE: 11/20/2020 ATTENDING MD: JOHANNA GONSALEZ : AGE: 85 MARITAL STATUS: M DC PLAN ID: [id number] FACILITY: [facility] PRINTED ON: 11/20/20 18:52 CT All edits/amendments must be made on the electronic document DICTATION DATE: 11/20/201850 SERVICE ESTABLISHMENT ATTENDANT: SALVATORE 11/20/201850 RPT#: [id number] DC DATE:11/20/20 STATUS: DIS IN [facility] [address] [place] [address] END OF REPORT
--- NOTE | 2020-11-21 11:59 | MORECARE ---
CASE MANAGEMENT DISCHARGE SUMMARY PATIENT: STEVE RADFORD UNIT: [id number] ADM DATE: 11/17/20 AGE: 85 : 33 SEX: M ROOM/BED: D.2139 AUTHOR: ANNA LOPEZ PHYSICIAN: REFERRING PHYSICIAN: JOHANNA HERNANDEZ MD DATE OF SERVICE: 11/21/20 Case Management Discharge Planning Summary COMMENTS ENTERED DATE: 11/20/20 18:45 CT COMMENT TYPE: Discharge Planning REVIEWER: Jelani Del Rio CM met with patient and his daughter, Reina Zeng to complete DC plan and to evaluate needs. Patient stated that he readmitted because his blood pressure was really low. Patient stated that he was able to obtain his medications after last discharge but unfortunately was not able to keep his follow up appointment. Patient stated that he followed the dc instructions given to him. It appears that this readmission was due to a new condition of hypotension. Patient is dependent for Medication management, feeding, and dressing and lives with his daughter, Reina Zeng, . Patient stated that his home is safe and has electricity and running water. Patient's daughter stated that he has no problems paying for medications and he fills his medications at [facility] on [address] [facility]. Patient's daughter stated that his primary care physician is Dr. Starks. At discharge, the patient plans to return home and feels this is a safe discharge. CM discussed availability of home health, rehab services, and medical equipment. Patient and daughter declined SNF, IPR, and DME but would like to continue [facility]. TERESA signed for [facility] and placed in chart. Patient's daughter stated they have a walker and dialysis cycler at home. Patient and daughter voiced no other needs at this time and is satisfied with DC plan. Transportation provider at discharge will be with his daughter, Reina. DC IMM delivered, explained, signed by the patient, and placed in chart. Signed form also left with the patient. CM will continue to follow and will assist as needed with dc plans/needs. DCP REVIEW SUMMARY ANTICIPATED D/C DATE: 11/20/2020 EXPECTED LOS : 3 CASE STATUS: DCP Initiated INITIAL REVIEW: 11/17/2020 INITIAL REVIEWER: Jelani Del Rio FINAL DISCHARGE DISPOSITION: : FINAL REVIEWER: FINAL REVIEW DATE: DCP Focus Questions & Answers DCP Evaluation QUESTION: ANSWER Patient and/or caregiver agree upon recommended discharge plan? : Yes Family / Caregiver's ability to cope with chronic illness: : a. Adequate (ability to meet patient's medical needs, ensures patient attends medical appts.) Patient's current cognitive status: : *Oriented to person, place, situation, time and present Patient's ability to cope with chronic illness : d. No chronic illness Patient gives permission to discuss discharge plans with: (name, relationship and number) : daughterReina, Does the patient have the ability to pay for or attain post discharge needs / services? : Yes Functional screen assessment: : Basic needs can adequately be met by self Family / Caregiver's ability to cope with chronic illness: : a. Adequate (ability to meet patient's medical needs, ensures patient attends medical appts.) Physical Status: : Partial care dependence Equipment needed for post hospitalization: : None Is there a likelihood that the patient will require additional services to return to the preadmission environment? : No Living Arrangements: : Home with Extended Family Partial Dependence, assistance required for: : Eating Partial Dependence, assistance required for: : Dressing Partial Dependence, assistance required for: : Bathing Partial Dependence, assistance required for: : Ambulation / Mobility Patient with capacity for self-care or can be cared for in same environment as prior to hospitalization? : Yes Baseline cognitive status: : *Oriented to person, place, situation, time and present Physical environment modification needed / anticipated for discharge: : No Medication Management: : Patient states can read and understand medication labels Medication Management: : Patient states can afford medications Pharmacy name(s): : [facility] on [address] Does Patient have transportation to get home and to follow-up medical appointments when discharged from the hospital? : Yes Would patient like to participate in any Care Coordination programs (if applicable): : Not applicable Does the patient have electricity at home? : Yes Does the patient have running water in their house? : Yes Equipment in use: : Walker - Rolling Other Equipment comments: : dialysis cycler Mental health screen: : No mental health history DCP Re-evaluation QUESTION: ANSWER Would patient like to participate in any Care Coordination programs (if applicable): : Not applicable PATIENT: STEVE RADFORD ENCOUNTER: [id number] MEDICAL RECORD#: [id number] ADMISSION DATE: 11/17/2020 DISCHARGE DATE: 11/20/2020 ATTENDING MD: JOHANNA GONSALEZ : AGE: 85 MARITAL STATUS: M DC PLAN ID: [id number] FACILITY: [facility] PRINTED ON: 11/21/20 11:59 CT All edits/amendments must be made on the electronic document DICTATION DATE: 11/21/20 1159 FOOTWEAR SALES LEADER: SALVATORE 11/21/20 1159 RPT#: [id number] DC DATE:11/20/20 STATUS: DIS IN [facility] [address] [place] [address] END OF REPORT
== END 2020-11-20 16:27 | disposition home health service (06) | DRG 314 ==
LOC: D.ER 11:44 → D.M2 13:46 → D.ICU 13:46 → D.M2 17:51
PROVIDERS: Emergency Medicine; Internal Medicine Nephrology; ADMIT Family Medicine; ATTEND Family Medicine
DX: I95.89 Other hypotension (principal); J18.9 Pneumonia, unspecified organism; N18.6 End stage renal disease; G93.41 Metabolic encephalopathy; I50.23 Acute on chronic systolic (congestive) heart failure; I13.0 Hypertensive heart and chronic kidney disease with heart failure and stage 1 through stage 4 chronic kidney disease, or unspecified chronic kidney disease; L03.116 Cellulitis of left lower limb; L03.115 Cellulitis of right lower limb; E87.2 Acidosis; I25.5 Ischemic cardiomyopathy; E87.5 Hyperkalemia; I25.10 Atherosclerotic heart disease of native coronary artery without angina pectoris; Z99.2 Dependence on renal dialysis; E87.6 Hypokalemia; D63.1 Anemia in chronic kidney disease; M19.90 Unspecified osteoarthritis, unspecified site; F32.9 Major depressive disorder, single episode, unspecified; K21.9 Gastro-esophageal reflux disease without esophagitis; N40.0 Benign prostatic hyperplasia without lower urinary tract symptoms; F03.90 Unspecified dementia, unspecified severity, without behavioral disturbance, psychotic disturbance, mood disturbance, and anxiety; I48.91 Unspecified atrial fibrillation